=== PATIENT | female | born 1970 | race American Indian/Alaskan Native ===

== ENCOUNTER 2016-03-28 17:33 | Emergency (ER) | payer MEDICAID ==
--- NOTE | 2016-03-28 18:47 | Emergency Department Report ---
ED Dizziness HPI - General Chief Complaint: Hyperglycemia Stated Complaint: ELEVATED SUGAR LEVELS >500 Source: patient Mode of arrival: Ambulatory Limitations: No Limitations - Related Data Home Medications Medication Instructions Recorded Confirmed Last Taken Benztropine [Cogentin] 1 mg PO QHS 11/29/14 11/29/14 11/28/14 Citalopram [celeXA] 10 mg PO QDAY 11/29/14 11/29/14 11/29/14 Insulin Glargine [Lantus VIAL] 25 unit SUB-Q QHS 11/29/14 11/29/14 11/28/14 Lisinopril [Zestril TAB] 10 mg PO QDAY 11/29/14 11/29/14 11/29/14 Ziprasidone HCl [Geodon] 80 mg PO BID 11/29/14 11/29/14 11/29/14 buPROPion XL [Wellbutrin Xl] 300 mg PO QAM 11/29/14 11/29/14 11/29/14 clonazePAM [KlonoPIN] 2 mg PO QHS 11/29/14 11/29/14 11/28/14 metFORMIN [Glucophage] 500 mg PO BID 11/29/14 11/29/14 11/29/14 risperiDONE [RisperiDONE] 3 mg PO QDAY 11/29/14 11/29/14 11/29/14 Previous Rx's Medication Instructions Recorded Last Taken Type Ciprofloxacin HCl [Ciprofloxacin 500 mg PO Q12H #14 tab 11/29/14 Unknown Rx TAB] Allergies Allergy/AdvReac Type Severity Reaction Status Date / Time Sulfa (Sulfonamide Allergy Hives Verified 06/01/14 18:25 Antibiotics) ED Review of Systems ROS: Stated complaint: ELEVATED SUGAR LEVELS >500 Other details as noted in HPI ED Past Medical Hx - Past Medical History Hx Hypertension: Yes Hx Diabetes: Yes Hx Psychiatric Treatment: Yes (depression) Hx Asthma: Yes - Surgical History Additional Surgical History: cholestectomy, kidney stone surgery 2, colon biopsy, cyst removal from left upper extremity - Social History Smoking Status: Current Every Day Smoker Substance Use Type: None - Medications Home Medications: Home Medications Medication Instructions Recorded Confirmed Last Taken Type Benztropine [Cogentin] 1 mg PO QHS 11/29/14 11/29/14 11/28/14 History Ciprofloxacin HCl [Ciprofloxacin 500 mg PO Q12H #14 tab 11/29/14 Unknown Rx TAB] Citalopram [celeXA] 10 mg PO QDAY 11/29/14 11/29/14 11/29/14 History Insulin Glargine [Lantus VIAL] 25 unit SUB-Q QHS 11/29/14 11/29/14 11/28/14 History Lisinopril [Zestril TAB] 10 mg PO QDAY 11/29/14 11/29/14 11/29/14 History Ziprasidone HCl [Geodon] 80 mg PO BID 11/29/14 11/29/14 11/29/14 History buPROPion XL [Wellbutrin Xl] 300 mg PO QAM 11/29/14 11/29/14 11/29/14 History clonazePAM [KlonoPIN] 2 mg PO QHS 11/29/14 11/29/14 11/28/14 History metFORMIN [Glucophage] 500 mg PO BID 11/29/14 11/29/14 11/29/14 History risperiDONE [RisperiDONE] 3 mg PO QDAY 11/29/14 11/29/14 11/29/14 History ED Physical Exam - General Limitations: No Limitations ED Course Vital Signs 03/28/16 17:43 Temperature 98.4 F Pulse Rate 108 H Respiratory 18 Rate Blood Pressure 108/88 O2 Sat by Pulse 100 Oximetry Critical care attestation.: If time is entered above; I have spent that time in minutes in the direct care of this critically ill patient, excluding procedure time. ED Disposition Condition: Stable
--- NOTE | 2016-03-28 19:03 | Emergency Department Report ---
Chief Complaint: Hyperglycemia Stated Complaint: ELEVATED SUGAR LEVELS >500 Time Seen by Provider: 03/28/16 18:47 - HPI History of Present Illness: Patient here reports that she is having elevated blood sugar and generalized weakness 2 weeks. She reports that her blood sugar was greater than 500 at home.She reports that she took Lantus 45 units prior to coming to the emergency room. - ROS Review of Systems: All systems are negative unless stated in HPI above. - Exam Vital Signs: Vital Signs 03/28/16 17:43 Temperature 98.4 F Pulse Rate 108 H Respiratory 18 Rate Blood Pressure 108/88 O2 Sat by Pulse 100 Oximetry Physical Exam: General: 46year-old female well-nourished well-developed in no acute distress. CV: S1, S2. Tachycardic at 108 .Regular rhythm. Lungs:Cear to auscultate bilaterally, no rhonchi wheezes or rales. MSE screening note: Focused history and physical exam performed. Due to findings the following was ordered:see [facility] ED Medical Decision Making - Medical Decision Making Medical decision making: Patient seen by provider in triage area. Appropriate protocol activated and patient to main ED to be seen by physician. ED Disposition for MSE Condition: Stable
[2016-03-28 19:39] LABS: Basophils % (Auto) 0.8 % (0.0-1.8); Eosinophils % (Auto) 1.2 % (0.0-4.3); Hematocrit 51.8 % (30.3-42.9); Hemoglobin 16.9 gm/dl (10.1-14.3); Mean Corpuscular HGB Conc 33 % (30-34); Mean Corpuscular Hemoglobin 27 pg (28-32); Mean Corpuscular Volume 83 fl (79-97); Platelet Count 191 K/mm3 (140-440); Red Blood Count 6.23 M/mm3 (3.65-5.03); Red Cell Distribution Width 14.5 % (13.2-15.2); White Blood Count 7.7 K/mm3 (4.5-11.0)
[2016-03-28 20:03] LABS: Anion Gap 23 mmol/L; Blood Urea Nitrogen 7 mg/dL (7-17); Calcium 9.7 mg/dL (8.4-10.2); Carbon Dioxide 23 mmol/L (22-30); Chloride 96.3 mmol/L (98-107); Glucose 342 mg/dL (65-100); Potassium 4.1 mmol/L (3.6-5.0); Sodium 138 mmol/L (137-145)
[2016-03-29] MEDS ORDERED: PEPCID IV ONE (00:37)
[2016-03-29] MEDS ORDERED: ALUM-MAG HYDROX-SIMETH 200-200-20MG/5ML PO ONE (00:37)
[2016-03-29] MEDS ORDERED: NACL 0.9% 1000 ML 1,000 ML IV ONE (00:37)
[2016-03-29] MEDS ORDERED: ZOFRAN IV ONE (00:37)
--- NOTE | 2016-03-29 00:38 | Emergency Department Report ---
ED General Adult HPI - General Chief complaint: Hyperglycemia Stated complaint: ELEVATED SUGAR LEVELS >500 Time Seen by Provider: 03/28/16 18:47 Source: patient, RN notes reviewed, old records reviewed Mode of arrival: Ambulatory Limitations: No Limitations - History of Present Illness Initial comments: Doses of 46-year-old female, previously unknown to me. Her primary care doctor is Dr. Almendarez. Has a past medical history of depression, diabetes, hypertension. She presents to the ER complaining of hyperglycemia, abdominal cramping, frequent bowel movements. Hyperglycemia is present for 2 months. She reports that her fingersticks were in the 500s. She reports that at approximately 5:00 PM, she took 45 units of Lantus to try and decrease her fingerstick. She also reports feeling generalized malaise and weakness, positive dysuria, and reports that everything she eats comes out of her quite quickly. She reports that her stool is brown and red. No recent trips. No recent antibiotic use. No sick contacts. No chest pain. No shortness of breath. Her symptoms are constant. She cannot describe exacerbating or relieving factors. -: Gradual Location: abdomen Severity scale (0 -10): 0 Quality: aching Consistency: constant Improves with: none Worsens with: none Associated Symptoms: loss of appetite, malaise, weakness - Related Data Home Medications Medication Instructions Recorded Confirmed Last Taken Benztropine [Cogentin] 1 mg PO QHS 11/29/14 11/29/14 11/28/14 Citalopram [celeXA] 10 mg PO QDAY 11/29/14 11/29/14 11/29/14 Insulin Glargine [Lantus VIAL] 25 unit SUB-Q QHS 11/29/14 11/29/14 11/28/14 Lisinopril [Zestril TAB] 10 mg PO QDAY 11/29/14 11/29/14 11/29/14 Ziprasidone HCl [Geodon] 80 mg PO BID 11/29/14 11/29/14 11/29/14 buPROPion XL [Wellbutrin Xl] 300 mg PO QAM 11/29/14 11/29/14 11/29/14 clonazePAM [KlonoPIN] 2 mg PO QHS 11/29/14 11/29/14 11/28/14 metFORMIN [Glucophage] 500 mg PO BID 11/29/14 11/29/14 11/29/14 risperiDONE [RisperiDONE] 3 mg PO QDAY 11/29/14 11/29/14 11/29/14 Previous Rx's Medication Instructions Recorded Last Taken Type Ciprofloxacin HCl [Ciprofloxacin 500 mg PO Q12H #14 tab 11/29/14 Unknown Rx TAB] Dicyclomine [Bentyl] 10 mg PO QID PRN #20 capsule 03/29/16 Unknown Rx Nitrofurantoin Jenkins/M-Cryst 100 mg PO Q12HR #14 capsule 03/29/16 Unknown Rx [Macrobid CAP] Ondansetron [Zofran Odt] 4 mg PO QID PRN #20 tab.rapdis 03/29/16 Unknown Rx Allergies Allergy/AdvReac Type Severity Reaction Status Date / Time Sulfa (Sulfonamide Allergy Hives Verified 06/01/14 18:25 Antibiotics) ED Review of Systems ROS: Stated complaint: ELEVATED SUGAR LEVELS >500 Other details as noted in HPI Constitutional: malaise Eyes: denies: vision change ENT: denies: epistaxis Respiratory: see HPI Cardiovascular: as per HPI Gastrointestinal: abdominal pain, diarrhea Genitourinary: dysuria Musculoskeletal: back pain Skin: as per HPI Neurological: weakness Psychiatric: anxiety ED Past Medical Hx - Past Medical History Hx Hypertension: Yes Hx Diabetes: Yes Hx Psychiatric Treatment: Yes (depression) Hx Asthma: Yes - Surgical History Additional Surgical History: cholestectomy, kidney stone surgery 2, colon biopsy, cyst removal from left upper extremity - Social History Smoking Status: Current Every Day Smoker Substance Use Type: None - Medications Home Medications: Home Medications Medication Instructions Recorded Confirmed Last Taken Type Benztropine [Cogentin] 1 mg PO QHS 11/29/14 11/29/14 11/28/14 History Ciprofloxacin HCl [Ciprofloxacin 500 mg PO Q12H #14 tab 11/29/14 Unknown Rx TAB] Citalopram [celeXA] 10 mg PO QDAY 11/29/14 11/29/14 11/29/14 History Insulin Glargine [Lantus VIAL] 25 unit SUB-Q QHS 11/29/14 11/29/14 11/28/14 History Lisinopril [Zestril TAB] 10 mg PO QDAY 11/29/14 11/29/14 11/29/14 History Ziprasidone HCl [Geodon] 80 mg PO BID 11/29/14 11/29/14 11/29/14 History buPROPion XL [Wellbutrin Xl] 300 mg PO QAM 11/29/14 11/29/14 11/29/14 History clonazePAM [KlonoPIN] 2 mg PO QHS 11/29/14 11/29/14 11/28/14 History metFORMIN [Glucophage] 500 mg PO BID 11/29/14 11/29/14 11/29/14 History risperiDONE [RisperiDONE] 3 mg PO QDAY 11/29/14 11/29/14 11/29/14 History Dicyclomine [Bentyl] 10 mg PO QID PRN #20 capsule 03/29/16 Unknown Rx Nitrofurantoin Jenkins/M-Cryst 100 mg PO Q12HR #14 capsule 03/29/16 Unknown Rx [Macrobid CAP] Ondansetron [Zofran Odt] 4 mg PO QID PRN #20 tab.rapdis 03/29/16 Unknown Rx ED Physical Exam - General Limitations: No Limitations General appearance: alert, in no apparent distress - Head Head exam: Present: atraumatic, normocephalic - Eye Eye exam: Present: normal appearance, EOMI. Absent: nystagmus - ENT ENT exam: Present: normal exam, normal orophraynx, mucous membranes moist - Neck Neck exam: Present: normal inspection, full ROM. Absent: tenderness, meningismus - Respiratory Respiratory exam: Present: normal lung sounds bilaterally. Absent: respiratory distress, wheezes, rales, rhonchi, stridor, chest wall tenderness - Cardiovascular Cardiovascular Exam: Present: regular rate, normal rhythm, normal heart sounds. Absent: bradycardia, tachycardia, irregular rhythm, systolic murmur, diastolic murmur, rubs, gallop - GI/Abdominal GI/Abdominal exam: Present: soft, tenderness, normal bowel sounds. Absent: distended, guarding, rebound, rigid, pulsatile mass - Rectal Rectal exam: Present: normal inspection, normal rectal tone, heme (-) stool, other (Brown stool, no gross blood. During rectal examination, I am escorted by ER [employer] missile [employer] technician Kasandra Arenas) - Extremities Exam Extremities exam: Present: normal inspection, full ROM, normal capillary refill. Absent: tenderness, pedal edema, joint swelling, calf tenderness - Back Exam Back exam: Present: normal inspection, full ROM. Absent: tenderness, CVA tenderness (R), CVA tenderness (L), muscle spasm, paraspinal tenderness, vertebral tenderness - Neurological Exam Neurological exam: Present: alert, oriented X3, other (Extraocular movements intact. Tongue midline. No facial droop. Facial sensation intact to light touch in the V1, V2, V3 distribution bilaterally. 5 and 5 strength in 4 extremities.. Sensation is intact to light touch in 4 extremities.). Absent: motor sensory deficit - Psychiatric Psychiatric exam: Present: anxious - Skin Skin exam: Present: warm, dry, intact, normal color. Absent: rash ED Course Vital Signs 03/28/16 03/28/16 03/29/16 17:43 23:43 00:35 Temperature 98.4 F 98.5 F Pulse Rate 108 H 94 H Respiratory 18 22 18 Rate Blood Pressure 108/88 Blood Pressure 134/100 [Left] O2 Sat by Pulse 100 100 100 Oximetry 03/29/16 03:03 Temperature Pulse Rate 90 Respiratory 16 Rate Blood Pressure Blood Pressure 135/97 [Left] O2 Sat by Pulse 100 Oximetry - Reevaluation(s) Reevaluation #1: 03/29/16 00:46 Differential diagnosis: Colitis, diverticulitis, urinary tract infection, hyperglycemia, intra-abdominal abscess, enteritis Assessment and plan: 46-year-old female with diffuse abdominal pain, hyperglycemia without diabetic ketoacidosis. She is somewhat tender. May have an enteritis or colitis. She will be treated symptomatically. She will be given IV fluids. Guaiac negative. Hemoglobin and hematocrit stable. Urinalysis pending. CAT scan of the abdomen and pelvis is pending. Reassess once urinalysis and CAT scan have resulted. 03/29/16 01:12 Reevaluation #2: 03/29/16 04:00 CAT scan of the abdomen and pelvis with no acute disease that would require emergent intervention. Of note, patient has not had any episodes of diarrhea. Hyperglycemia is improved. Abdomen soft and repeat exam. Noted to be walking. No active vomiting. Urinalysis contaminated, but given her endorsement of irritative urinary symptoms, she will be given Macrobid empirically. She is counseled to follow-up in outpatient primary care doctor. Return precautions are extensively reviewed. ED Medical Decision Making - Lab Data Result diagrams: 03/28/16 18:57 03/28/16 18:57 Vital Signs 03/28/16 03/28/16 03/29/16 17:43 23:43 00:35 Temperature 98.4 F 98.5 F Pulse Rate 108 H 94 H Respiratory 18 22 18 Rate Blood Pressure 108/88 Blood Pressure 134/100 [Left] O2 Sat by Pulse 100 100 100 Oximetry 03/29/16 03:03 Temperature Pulse Rate 90 Respiratory 16 Rate Blood Pressure Blood Pressure 135/97 [Left] O2 Sat by Pulse 100 Oximetry Lab Results 03/28/16 03/28/16 03/28/16 Range/Units 17:50 18:57 18:57 WBC 7.7 (4.5-11.0) K/mm3 RBC 6.23 H (3.65-5.03) M/mm3 Hgb 16.9 H (10.1-14.3) gm/dl Hct 51.8 H (30.3-42.9) % MCV 83 (79-97) fl MCH 27 L (28-32) pg MCHC 33 (30-34) % RDW 14.5 (13.2-15.2) % Plt Count 191 (140-440) K/mm3 Lymph % (Auto) 37.6 H (13.4-35.0) % Jenkins % (Auto) 5.4 (0.0-7.3) % Eos % (Auto) 1.2 (0.0-4.3) % Baso % (Auto) 0.8 (0.0-1.8) % Lymph # 2.9 (1.2-5.4) K/mm3 Jenkins # 0.4 (0.0-0.8) K/mm3 Eos # 0.1 (0.0-0.4) K/mm3 Baso # 0.1 (0.0-0.1) K/mm3 Seg Neutrophils % 55.0 (40.0-70.0) % Seg Neutrophils # 4.3 (1.8-7.7) K/mm3 VBG pH (7.320-7.420) Sodium 138 (137-145) mmol/L Potassium 4.1 (3.6-5.0) mmol/L Chloride 96.3 L (98-107) mmol/L Carbon Dioxide 23 (22-30) mmol/L Anion Gap 23 mmol/L BUN 7 (7-17) mg/dL Creatinine 0.7 (0.7-1.2) mg/dL Estimated GFR > 60 ml/min BUN/Creatinine Ratio 10.00 % Glucose 342 H (65-100) mg/dL POC Glucose 323 H (70-105) Calcium 9.7 (8.4-10.2) mg/dL HCG, Qual (Negative) Ketones 8.0 H (0.2-2.8) mg/dL 03/28/16 03/28/16 03/28/16 Range/Units 18:57 18:57 23:47 WBC (4.5-11.0) K/mm3 RBC (3.65-5.03) M/mm3 Hgb (10.1-14.3) gm/dl Hct (30.3-42.9) % MCV (79-97) fl MCH (28-32) pg MCHC (30-34) % RDW (13.2-15.2) % Plt Count (140-440) K/mm3 Lymph % (Auto) (13.4-35.0) % Jenkins % (Auto) (0.0-7.3) % Eos % (Auto) (0.0-4.3) % Baso % (Auto) (0.0-1.8) % Lymph # (1.2-5.4) K/mm3 Jenkins # (0.0-0.8) K/mm3 Eos # (0.0-0.4) K/mm3 Baso # (0.0-0.1) K/mm3 Seg Neutrophils % (40.0-70.0) % Seg Neutrophils # (1.8-7.7) K/mm3 VBG pH 7.385 (7.320-7.420) Sodium (137-145) mmol/L Potassium (3.6-5.0) mmol/L Chloride (98-107) mmol/L Carbon Dioxide (22-30) mmol/L Anion Gap mmol/L BUN (7-17) mg/dL Creatinine (0.7-1.2) mg/dL Estimated GFR ml/min BUN/Creatinine Ratio % Glucose (65-100) mg/dL POC Glucose 370 H (70-105) Calcium (8.4-10.2) mg/dL HCG, Qual Negative (Negative) Ketones (0.2-2.8) mg/dL 03/29/16 Range/Units 02:38 WBC (4.5-11.0) K/mm3 RBC (3.65-5.03) M/mm3 Hgb (10.1-14.3) gm/dl Hct (30.3-42.9) % MCV (79-97) fl MCH (28-32) pg MCHC (30-34) % RDW (13.2-15.2) % Plt Count (140-440) K/mm3 Lymph % (Auto) (13.4-35.0) % Jenkins % (Auto) (0.0-7.3) % Eos % (Auto) (0.0-4.3) % Baso % (Auto) (0.0-1.8) % Lymph # (1.2-5.4) K/mm3 Jenkins # (0.0-0.8) K/mm3 Eos # (0.0-0.4) K/mm3 Baso # (0.0-0.1) K/mm3 Seg Neutrophils % (40.0-70.0) % Seg Neutrophils # (1.8-7.7) K/mm3 VBG pH (7.320-7.420) Sodium (137-145) mmol/L Potassium (3.6-5.0) mmol/L Chloride (98-107) mmol/L Carbon Dioxide (22-30) mmol/L Anion Gap mmol/L BUN (7-17) mg/dL Creatinine (0.7-1.2) mg/dL Estimated GFR ml/min BUN/Creatinine Ratio % Glucose (65-100) mg/dL POC Glucose 339 H (70-105) Calcium (8.4-10.2) mg/dL HCG, Qual (Negative) Ketones (0.2-2.8) mg/dL - Radiology Data Radiology results: report reviewed, image reviewed CAT scan of the abdomen and pelvis with contrast: Lung bases show density which may represent atelectatic change or scarring. There is a small right-sided pleural effusion. Liver demonstrates decreased attenuation, suggestive of fatty liver. The appendix is within normal limits. Uterus is surgically absent. No acute findings noted. Critical care attestation.: If time is entered above; I have spent that time in minutes in the direct care of this critically ill patient, excluding procedure time. ED Disposition Clinical Impression: Hyperglycemia, Abdominal pain Disposition: DISCHARGED TO HOME OR SELFCARE Is pt being admited?: No Does the pt Need Aspirin: No Condition: Stable Instructions: Abdominal Pain (ED), Diabetic Hyperglycemia (ED) Additional Instructions: Continue current outpatient medications. Hold your metformin for the next 2 days. Do not take metformin for the next 2 days. Make certain to adhere to a diabetic diet. Take the antibiotics, pain medication, nausea medication as directed. Follow up with the primary care doctor within the next week. Dr. Stanley is a local primary care doctor. Return to the ER right away with new pain, worsened pain, migration of pain, fevers or chills, nausea or vomiting, inability to tolerate feeds. Prescriptions: Dicyclomine [Bentyl] 10 mg PO QID PRN #20 capsule PRN Reason: Pain Nitrofurantoin Jenkins/M-Cryst [Macrobid CAP] 100 mg PO Q12HR #14 capsule Ondansetron [Zofran Odt] 4 mg PO QID PRN #20 tab.rapdis PRN Reason: Nausea Referrals: PRIMARY CARE, [Primary Care Provider] - 3-5 Days KAREN STANLEY MD [Staff Physician] - 3-5 Days
[2016-03-29 03:04] VITALS: BP 135/97
--- NOTE | 2016-03-29 03:06 | Cat Scan Report ---
FINAL REPORT EXAM: CT ABDOMEN PELVIS W CON HISTORY: abd pain TECHNIQUE: Spiral CT scanning of the abdomen and pelvis after the uneventful administration of IV contrast. Multiplanar reformations. 100 mL Omnipaque IV. PRIORS: None. FINDINGS: Abdomen: Visualized lung bases show mild pleuro-parenchymal density in left lung base may represent atelectatic change or scarring. Small, right pleural effusion. Liver shows diffusely decreased attenuation without focal abnormality. Asymmetrically small or atrophic right kidney with numerous cortical defects and scarring. Spleen, pancreas, left kidney and adrenal glands are without significant abnormality. Appendix within normal limits. Pelvis: Visualized bowel grossly unremarkable. Appendix within normal limits. No significant free peritoneal fluid or apparent adenopathy. Abdominal aorta is non-aneurysmal. Uterus surgically absent. Mild S-shaped scoliotic change in thoracolumbar spine. Small, fat-containing umbilical hernia. IMPRESSION: 1. Findings compatible with fatty infiltration in the liver. 2. Small, right pleural effusion. 3. No other acute findings.
--- NOTE | 2016-03-29 03:10 | Admit Criteria Form ---
Admission Criteria Documentation: DIABETES Clinical Indications for Admission to Inpatient Care (Place 'X' for any and all applicable criteria): Admission is indicated by presence of ALL (if I & II) or ANY ONE (if III or IV) of the following (1)(2)(3)(4): [X ]I. Diabetes is uncontrolled as indicated by ANY ONE of the following: [X ]a) Diabetic ketoacidosis as indicated by ALL of the following (8): [ X]i) Hyperglycemia (eg, plasma glucose greater than 200 mg /dL (11.1 mmol/L)) [ X]ii) Acidosis (eg, arterial pH less than 7.30, serum bicarbonate level less than 15 mEq/L (mmol/L)) [X ]iii) Moderate ketonuria or ketonemia [ ]b) Hyperglycemic hyperosmolar state as indicated by ALL of the following(9)(10): [ ]i) Neurologic dysfunction (eg, stupor, coma, hemiparesis , seizure)(13) [ ]ii) Plasma glucose greater than 600 mg/dL (33.3 mmol/L) [ ]iii) Serum osmolality greater than 320 mOsm/kg (mmol/kg) [ ]c) Severe signs or symptoms secondary to hyperglycemia indicated by ANY ONE of the following: [ ]i) Altered mental status(10) [ ]ii) Significant hypovolemia or dehydration [ ]iii) Intractable nausea or vomiting [ ]iv) Unexplained fever or severe infection [ ]v) Severe electrolyte abnormality (eg, hypokalemia, hyperkalemia, hypernatremia) [ X]II. Management at other levels of care (Also use Diabetes: Observation Care as appropriate) is not feasible because of ANY ONE of the following: [ X]a) Condition was not adequately corrected with treatment at other levels of care. [ ]b) Treatment at other levels of care is not appropriate because of condition severity (eg, hyperosmolar coma). [ ]III. Contraindications and/or Inappropriate clinical situations for Observational Care in patients with Diabetes, when ANY ONE of the following is required: [ ]a) Patient require specific diagnostic workup or therapeutic intervention 22 [ ]b) Patient with abnormal vital signs or altered mental status 23 [ ]IV. General contraindications and/or Inappropriate clinical situations for Observational Care in patients with Diabetes, when ANY ONE of the following is required: [ ]a) Prediction of prolongation of LOS based on ANY ONE of the following may be considered as a contraindication for observational care 2, 3, 4, 5, 6, 7, 8, 9, 10, 11 [ ]i) Age > 65 yrs. [ ]ii) Patient arriving by ambulance [ ]iii) Patient with high acuity [ ]iv) Patient requiring vital sign monitoring [ ]v) Patient on IV medication [ ]b) Systolic blood pressures 180mmHg 3,12 [ ]c) Patient with altered mental status including delirium and other alteration of consciousness, (3) [ ]d) Patient whose discharge disposition will be to a longterm home or rehabilitation home should not be managed in Emergency Department Observation Unit. CMS rule requires 3 days hospital stay before such placement.3,13 [ ]e) Patient with failure to thrive due to broad array of etiologies 3,16,17 [ ]f) Inability to ambulate 3,14 Extended stay beyond goal length of stay may be needed for(3)(20): [ ]a) Treatment of precipitating causes [ ]b) Development of hypoglycemia [ ]c) Complications of treatment [ ]d) Complications of decompensated diabetes (eg, acute gastric dilatation, persistent metabolic or neurologic derangement) [ ]e) Active Comorbidities [ ]f) Older patients( 65 years or older) The original [employer] content created by [employer] has been revised. The portions of the content which have been revised are identified through the use of italic text or in bold,and [facility] has neither reviewed nor approved the modified material. All other unmodified content is copyright [employer]. Please see references footnoted in the original [employer] edition 2016
[2016-03-29 03:14] LABS: Bilirubin,Urine NEG (Negative); Blood,Urine MOD (Negative); Ketones,Urine TR mg/dL (Negative); Leukocyte Esterase,Urine SM (Negative); Mucus,Urine FEW /HPF; Nitrite,Urine NEG (Negative); Urobilinogen,Urine < 2.0 mg/dL (<2.0)
== END 2016-03-29 04:15 | disposition home or self-care (01) ==
LOC: ED 17:33
DX: E11.65 Type 2 diabetes mellitus with hyperglycemia (principal); R10.9 Unspecified abdominal pain; I10 Essential (primary) hypertension; J45.909 Unspecified asthma, uncomplicated; F17.200 Nicotine dependence, unspecified, uncomplicated; Z90.49 Acquired absence of other specified parts of digestive tract
CPT/HCPCS: 36415; 74177; 80048; 81001; 82010; 82271; 82805; 82962; 84703; 85025; 87086; 96361; 96374; 96375; 99285; J2405; J7030; Q9967

== ENCOUNTER 2017-05-12 14:47 | Emergency (ER) | payer MEDICAID ==
[2017-05-12 15:09] VITALS: BP 144/94
[2017-05-12] MEDS ORDERED: NORCO 5/325 PO ONE (16:14)
[2017-05-12] MEDS ORDERED: BSS 1 DROPS, TETRACAINE 0.5% 1 DROPS, FUL-GLO 0.6 MG OS ONE (16:18)
--- NOTE | 2017-05-12 16:24 | Emergency Department Report ---
Blank Doc - Documentation Documentation: 47-year-old female presents with left forehead and eye pain for the past 2 days. Patient was sitting on the toilet. Her psychotropic medication made her drowsy and she fell asleep. She fell foward striking her left forehead bathtub injuring her eye as well. She complains of left sided headache, blurred vision , light sensitivity. Patient also complains of continued cough productive of yellow sputum and chills for the past 2 months making it difficult for her to inhale her cigarette. No improvement with Mucinex provided by PMD. She was not treated with antibiotics Visual acuity testing, CT head and orbits, cunningham lamp and fluorescein stain ordered Chest x-ray ordered for persistent cough. Treatment with Z-Sandor may be warranted. Briefly counseled on importance to stop smoking. Mid-level to evaluate
[2017-05-12] MEDS ORDERED: TETRACAINE 0.5% ONE (16:26)
[2017-05-12] MEDS ORDERED: FUL-GLO OP ONE (16:27)
--- NOTE | 2017-05-12 16:33 | Emergency Department Report ---
ED Head Trauma HPI - General Chief complaint: Head Injury Stated complaint: DOUBLE VISON LEFT EYE AFTER FALL Time Seen by Provider: 05/12/17 16:07 Source: patient, EMS Mode of arrival: Ambulatory Limitations: No Limitations - History of Present Illness Initial comments: 47-year-old female resents with complaint of left eye left orbit pain status post fall 2 days ago. Patient is currently awake and alert. Denies any purulent drainage from eye. Some visible periorbital swelling left side head. Patient is fully lucid ambulatory awake and conversant. Does not know last tetanus vaccine. States she wears contact lenses which she still has a now and has not removed since fall MD Complaint: head injury, head pain, fall Location: occipital Loss of Consciousness: unwitnessed Previous Trauma to this Area: No Place: home Severity: moderate Severity scale (0 -10): 5 Consistency: constant Provoking factors: none known - Related Data Home Medications Medication Instructions Recorded Confirmed Last Taken Benztropine [Cogentin] 1 mg PO QHS 11/29/14 11/29/14 11/28/14 Citalopram [celeXA] 10 mg PO QDAY 11/29/14 11/29/14 11/29/14 Insulin Glargine [Lantus VIAL] 25 unit SUB-Q QHS 11/29/14 11/29/14 11/28/14 Lisinopril [Zestril TAB] 10 mg PO QDAY 11/29/14 11/29/14 11/29/14 Ziprasidone HCl [Geodon] 80 mg PO BID 11/29/14 11/29/14 11/29/14 buPROPion XL [Wellbutrin Xl] 300 mg PO QAM 11/29/14 11/29/14 11/29/14 clonazePAM [KlonoPIN] 2 mg PO QHS 11/29/14 11/29/14 11/28/14 metFORMIN [Glucophage] 500 mg PO BID 11/29/14 11/29/14 11/29/14 risperiDONE [RisperiDONE] 3 mg PO QDAY 11/29/14 11/29/14 11/29/14 Previous Rx's Medication Instructions Recorded Last Taken Type Ciprofloxacin HCl [Ciprofloxacin 500 mg PO Q12H #14 tab 11/29/14 Unknown Rx TAB] Dicyclomine [Bentyl] 10 mg PO QID PRN #20 capsule 03/29/16 Unknown Rx Nitrofurantoin [place]/M-Cryst 100 mg PO Q12HR #14 capsule 03/29/16 Unknown Rx [Macrobid CAP] Ondansetron [Zofran Odt] 4 mg PO QID PRN #20 tab.rapdis 03/29/16 Unknown Rx ALBUTEROL Inhaler [ProAir HFA 1 puff IH Q4H PRN #1 inha 05/12/17 Unknown Rx Inhaler] Acetaminophen [Acetaminophen TAB] 500 mg PO Q6HR PRN #30 tablet 05/12/17 Unknown Rx Azithromycin [Zithromax Z-NIDIA] 250 mg PO QDAY #1 pack 05/12/17 Unknown Rx Ciprofloxacin 0.3% (Nf) 2 drop OP Q4H #1 drops 05/12/17 Unknown Rx [Ciprofloxacin OPTH] Allergies/Adverse reactions: Allergies Allergy/AdvReac Type Severity Reaction Status Date / Time shellfish derived Allergy Swelling Verified 05/12/17 15:05 Sulfa (Sulfonamide Allergy Hives Verified 06/01/14 18:25 Antibiotics) ED Review of Systems ROS: Stated complaint: DOUBLE VISON LEFT EYE AFTER FALL Other details as noted in HPI Constitutional: denies: chills, fever Eyes: eye pain (left eye pain). denies: eye discharge, vision change ENT: denies: ear pain, throat pain Respiratory: denies: cough, shortness of breath, wheezing Cardiovascular: denies: chest pain, palpitations Endocrine: no symptoms reported Gastrointestinal: denies: abdominal pain, nausea, diarrhea Genitourinary: denies: urgency, dysuria, discharge Musculoskeletal: denies: back pain, joint swelling, arthralgia Skin: denies: rash, lesions Neurological: denies: headache, weakness, paresthesias Psychiatric: denies: anxiety, depression Hematological/Lymphatic: denies: easy bleeding, easy bruising ED Past Medical Hx - Past Medical History Previous Medical History?: Yes Hx Hypertension: Yes Hx Diabetes: Yes Hx Psychiatric Treatment: Yes (depression) Hx Asthma: Yes - Surgical History Past Surgical History?: Yes Hx Cholecystectomy: Yes Additional Surgical History: cholestectomy, kidney stone surgery 2, colon biopsy, cyst removal from left upper extremity. hystertectomy - Social History Smoking Status: Current Every Day Smoker Substance Use Type: None - Medications Home Medications: Home Medications Medication Instructions Recorded Confirmed Last Taken Type Benztropine [Cogentin] 1 mg PO QHS 11/29/14 11/29/14 11/28/14 History Ciprofloxacin HCl [Ciprofloxacin 500 mg PO Q12H #14 tab 11/29/14 Unknown Rx TAB] Citalopram [celeXA] 10 mg PO QDAY 11/29/14 11/29/14 11/29/14 History Insulin Glargine [Lantus VIAL] 25 unit SUB-Q QHS 11/29/14 11/29/14 11/28/14 History Lisinopril [Zestril TAB] 10 mg PO QDAY 11/29/14 11/29/14 11/29/14 History Ziprasidone HCl [Geodon] 80 mg PO BID 11/29/14 11/29/14 11/29/14 History buPROPion XL [Wellbutrin Xl] 300 mg PO QAM 11/29/14 11/29/14 11/29/14 History clonazePAM [KlonoPIN] 2 mg PO QHS 11/29/14 11/29/14 11/28/14 History metFORMIN [Glucophage] 500 mg PO BID 11/29/14 11/29/14 11/29/14 History risperiDONE [RisperiDONE] 3 mg PO QDAY 11/29/14 11/29/14 11/29/14 History Dicyclomine [Bentyl] 10 mg PO QID PRN #20 capsule 03/29/16 Unknown Rx Nitrofurantoin [place]/M-Cryst 100 mg PO Q12HR #14 capsule 03/29/16 Unknown Rx [Macrobid CAP] Ondansetron [Zofran Odt] 4 mg PO QID PRN #20 tab.rapdis 03/29/16 Unknown Rx ALBUTEROL Inhaler [ProAir HFA 1 puff IH Q4H PRN #1 inha 05/12/17 Unknown Rx Inhaler] Acetaminophen [Acetaminophen TAB] 500 mg PO Q6HR PRN #30 tablet 05/12/17 Unknown Rx Azithromycin [Zithromax Z-NIDIA] 250 mg PO QDAY #1 pack 05/12/17 Unknown Rx Ciprofloxacin 0.3% (Nf) 2 drop OP Q4H #1 drops 05/12/17 Unknown Rx [Ciprofloxacin OPTH] ED Physical Exam - General Limitations: No Limitations General appearance: alert, in no apparent distress - Eye Eye exam: Present: normal appearance, PERRL, EOMI - ENT ENT exam: Present: mucous membranes moist - Neck Neck exam: Present: normal inspection, full ROM - Respiratory Respiratory exam: Present: normal lung sounds bilaterally. Absent: respiratory distress - Cardiovascular Cardiovascular Exam: Present: regular rate, normal rhythm. Absent: systolic murmur, diastolic murmur, rubs, gallop - GI/Abdominal GI/Abdominal exam: Present: soft, normal bowel sounds - Extremities Exam Extremities exam: Present: normal inspection - Back Exam Back exam: Present: normal inspection - Neurological Exam Neurological exam: Present: alert, oriented X3 - Psychiatric Psychiatric exam: Present: normal affect, normal mood - Skin Skin exam: Present: warm, dry, intact, normal color. Absent: rash ED Course Vital Signs 05/12/17 05/12/17 15:05 16:33 Temperature 98.4 F Pulse Rate 100 H Respiratory 16 18 Rate Blood Pressure 144/94 O2 Sat by Pulse 97 Oximetry - Lab Data Lab Results 05/12/17 Range/Units 15:15 POC Glucose 287 H (70-105) - Medical Decision Making A/P: Left orbital contusion, corneal abrasion, concussive symptoms, acute bronchitis 1-CT is unremarkable, no acute fractures 2-ocular movements are intact no signs of globe rupture on clinical exam possible small corneal abrasion on fluorescein stain. Intraocular pressure is 15 left eye. Visual acuity 20/40 left eye 20/30 right eye 20/30 overall 3-Tylenol when necessary, tetanus vaccine update, ciprofloxacin eyedrops. Patient removed her contact lens in her left eye. I advised her to use glasses and to not replace the contact lenses for now as this can lead to pseudomonal eye infection or conjunctivitis. Patient stated she understood my concern and would not do so. We'll give her ciprofloxacin eyedrops. Follow-up with ophthalmology. 4-albuterol inhaler, azithromycin course 5- Cranial nerves 2, 3, 4, 5, 6, 7, 8,10, 11, 12 intact on clinical exam, patient is fully lucid awake alert and oriented 3 conversant. Denies any upper or lower extremity paresthesias and has 5/5 strength in bilateral upper and lower extremities on clinical exam. - NEXUS Criteria Focal neurological deficit present: No Midline spinal tenderness present: No Altered level of consciousness: No Intoxication present: No Distracting injury present: No NEXUS results: C-Spine can be cleared clinically by these results. Imaging is not required. Critical care attestation.: If time is entered above; I have spent that time in minutes in the direct care of this critically ill patient, excluding procedure time. ED Disposition Clinical Impression: Post concussion syndrome Eye contusion Qualifiers: Encounter type: initial encounter Laterality: left Qualified Code(s): S05.12XA - Contusion of eyeball and orbital tissues, left eye, initial encounter Headache Qualifiers: Headache type: unspecified Headache chronicity pattern: acute headache Intractability: not intractable Qualified Code(s): R51 - Headache Left corneal abrasion Qualifiers: Encounter type: initial encounter Qualified Code(s): S05.02XA - Injury of conjunctiva and corneal abrasion without foreign body, left eye, initial encounter Disposition: TO HOME OR SELFCARE Is pt being admited?: No Does the pt Need Aspirin: No Condition: Stable Instructions: Corneal Abrasion (ED), Post Concussion Syndrome (ED), Concussion (ED), Minor Head Injury (ED) Prescriptions: Acetaminophen [Acetaminophen TAB] 500 mg PO Q6HR PRN #30 tablet PRN Reason: Pain ALBUTEROL Inhaler [ProAir HFA Inhaler] 1 puff IH Q4H PRN #1 inha PRN Reason: Wheezing Azithromycin [Zithromax Z-NIDIA] 250 mg PO QDAY #1 pack Ciprofloxacin 0.3% (Nf) [Ciprofloxacin OPTH] 2 drop OP Q4H #1 drops Referrals: SANTO TAN MD [Staff Physician] - 3-[address] [facility] [Provider Group] - 3-5 Days Forms: Work/School Release Form(ED) Time of Disposition: 17:59
[2017-05-12] MEDS ORDERED: BOOSTRIX IM ONE (17:19)
--- NOTE | 2017-05-12 17:21 | XRay Report ---
FINAL REPORT EXAM: XR CHEST ROUTINE 2V HISTORY: persistant cough TECHNIQUE: Two view chest PA and lateral PRIORS: None. FINDINGS: Cardiac and mediastinal contours are unremarkable. No focal pulmonary infiltrate is identified. No pleural fluid collection seen. Pulmonary vasculature is unremarkable. Noted is scoliotic deformity of the mid to lower thoracic spine convex right. IMPRESSION: Scoliosis No acute abnormality identified in the chest
--- NOTE | 2017-05-12 17:34 | Cat Scan Report ---
FINAL REPORT PROCEDURE: CT head without contrast. TECHNIQUE: Computerized tomography of the head was performed without contrast material. HISTORY: Left forehead injury. COMPARISON: No prior studies are available for comparison. FINDINGS: The ventricles are normal in size. The conti matter and white matter appear normal. There are no mass lesions. There is no intracranial hemorrhage. There are no signs of acute infarction. The calvarium appears intact. The mastoid air cells and visualized paranasal sinuses are well aerated. IMPRESSION: Normal study.
--- NOTE | 2017-05-12 17:38 | Cat Scan Report ---
FINAL REPORT PROCEDURE: CT orbits without contrast. TECHNIQUE: Computerized axial tomography of the orbits was performed without contrast material. HISTORY: Left forehead injury,left eye redness, contact still in. COMPARISON: No prior studies are available for comparison. FINDINGS: The bones appear intact without fracture. The orbital contents appear normal. There are no blowout type injuries. The paranasal sinuses and mastoid air cells are clear. There is a small subcutaneous contusion in the left frontal scalp. IMPRESSION: No evidence of fracture.
== END 2017-05-12 18:13 | disposition home or self-care (01) ==
LOC: ED 14:47
DX: S05.12XA Contusion of eyeball and orbital tissues, left eye, initial encounter (principal); F07.81 Postconcussional syndrome; I10 Essential (primary) hypertension; E11.9 Type 2 diabetes mellitus without complications; F32.9 Major depressive disorder, single episode, unspecified; J45.909 Unspecified asthma, uncomplicated; Z90.49 Acquired absence of other specified parts of digestive tract; Z90.710 Acquired absence of both cervix and uterus; F17.200 Nicotine dependence, unspecified, uncomplicated; W17.89XA Other fall from one level to another, initial encounter; Y93.89 Activity, other specified; Y92.89 Other specified places as the place of occurrence of the external cause; Y99.8 Other external cause status
CPT/HCPCS: 70450; 70480; 71046; 82962; 90471; 90715

== ENCOUNTER 2018-07-29 13:26 | Inpatient (IN) | payer MEDICAID ==
--- NOTE | 2018-07-29 13:52 | Emergency Department Report ---
Chief Complaint: Skin/Abscess/Foreign Body Stated Complaint: BUMP ON BUTTOCKS Time Seen by Provider: 07/29/18 13:47 - HPI History of Present Illness: pt presents with an abscess in the right groin started two days ago has increased in size one drained on its own the other one has not been draining no fever no N/v PMHx HTN, DM, asthma takes humalog and lantus has not taken her insulin in 2-3 months +smoker, 1 PPD non drinker no drug use MSE screening note: Focused history and physical exam performed. Due to findings the following was ordered: labs, finger stick
[2018-07-29 14:32] LABS: Basophils # (Auto) 0.2 K/mm3 (0.0-0.1); Basophils % (Auto) 2.3 % (0.0-1.8); Eosinophils # (Auto) 0.1 K/mm3 (0.0-0.4); Eosinophils % (Auto) 1.5 % (0.0-4.3); Hematocrit 46.7 % (30.3-42.9); Hemoglobin 15.3 gm/dl (10.1-14.3); Lymphocytes # (Auto) 1.9 K/mm3 (1.2-5.4); Lymphocytes % (Auto) 19.7 % (13.4-35.0); Mean Corpuscular HGB Conc 33 % (30-34); Mean Corpuscular Volume 85 fl (79-97); Monocytes # (Auto) 0.6 K/mm3 (0.0-0.8); Monocytes % (Auto) 6.5 % (0.0-7.3); Platelet Count 232 K/mm3 (140-440); Red Blood Count 5.48 M/mm3 (3.65-5.03); Red Cell Distribution Width 15.8 % (13.2-15.2)
[2018-07-29 15:05] LABS: Alanine Aminotransferase 11 units/L (7-56); Albumin 3.4 g/dL (3.9-5); BUN/Creatinine Ratio 9; Blood Urea Nitrogen 8 mg/dL (7-17); Calcium 9.4 mg/dL (8.4-10.2); Hemolysis Index 45
[2018-07-29 15:54] LABS: Bacteria,Urine 1+ /HPF (Negative); Bilirubin,Urine NEG (Negative); Blood,Urine LG (Negative); Color,Urine Straw (Yellow); Urobilinogen,Urine < 2.0 mg/dL (<2.0)
[2018-07-29] MEDS ORDERED: VANCOMYCIN 1,750 MG in NACL 0.9% 500 ML 500 ML IV ONE (17:32)
--- NOTE | 2018-07-29 17:49 | Emergency Department Report ---
Abscess Boil HPI - HPI Chief Complaint: Skin/Abscess/Foreign Body Stated Complaint: BUMP ON BUTTOCKS Time Seen by Provider: 07/29/18 13:47 Duration: 1 Week Location: Lower Extremity Severity: Moderate History: Yes Pain, Yes Purulent Drainage, Yes Insect Bite, No Fever, No Numbness, No Foreign Body, No Previous History HPI: This is a 48-year-old female with history of insulin-dependent diabetes, hypertension, asthma and depression who presents with right upper thigh abscess for one week. Pain is worsened over the last 2 days. She's had drainage. Moderate pain tender to touch. Denies fever. Denies vomiting. She admits to being noncompliant with insulin therapy. She explains that the insulin therapy causes stomach upset and pain. PCP Dr. Vero Matthews Home Medications: Home Medications Medication Instructions Recorded Confirmed Last Taken Benztropine [Cogentin] 1 mg PO QHS 11/29/14 11/29/14 11/28/14 Citalopram [celeXA] 10 mg PO QDAY 11/29/14 11/29/14 11/29/14 Insulin Glargine [Lantus VIAL] 25 unit SUB-Q QHS 11/29/14 11/29/14 11/28/14 Lisinopril [Zestril TAB] 10 mg PO QDAY 11/29/14 11/29/14 11/29/14 Ziprasidone HCl [Geodon] 80 mg PO BID 11/29/14 11/29/14 11/29/14 buPROPion XL [Wellbutrin Xl] 300 mg PO QAM 11/29/14 11/29/14 11/29/14 clonazePAM [KlonoPIN] 2 mg PO QHS 11/29/14 11/29/14 11/28/14 metFORMIN [Glucophage] 500 mg PO BID 11/29/14 11/29/14 11/29/14 risperiDONE [RisperiDONE] 3 mg PO QDAY 11/29/14 11/29/14 11/29/14 Previous Rx's Medication Instructions Recorded Last Taken Type Ciprofloxacin HCl [Ciprofloxacin 500 mg PO Q12H #14 tab 11/29/14 Unknown Rx TAB] Dicyclomine [Bentyl] 10 mg PO QID PRN #20 capsule 03/29/16 Unknown Rx Nitrofurantoin [place]/M-Cryst 100 mg PO Q12HR #14 capsule 03/29/16 Unknown Rx [Macrobid CAP] Ondansetron [Zofran Odt] 4 mg PO QID PRN #20 tab.rapdis 03/29/16 Unknown Rx ALBUTEROL Inhaler (OR & NICU) 1 puff IH Q4H PRN #1 inha 05/12/17 Unknown Rx [ProAir HFA Inhaler] Acetaminophen [Acetaminophen TAB] 500 mg PO Q6HR PRN #30 tablet 05/12/17 Unknown Rx Azithromycin [Zithromax Z-NIDIA] 250 mg PO QDAY #1 pack 05/12/17 Unknown Rx Ciprofloxacin 0.3% (Nf) 2 drop OP Q4H #1 drops 05/12/17 Unknown Rx [Ciprofloxacin OPTH] Allergies/Adverse Reactions: Allergies Allergy/AdvReac Type Severity Reaction Status Date / Time shellfish derived Allergy Swelling Verified 07/29/18 13:28 Sulfa (Sulfonamide Allergy Hives Verified 07/29/18 13:28 Antibiotics) ED Review of Systems ROS: Stated complaint: BUMP ON BUTTOCKS Other details as noted in HPI Comment: All other systems reviewed and negative Constitutional: denies: fever, malaise Respiratory: denies: cough Cardiovascular: denies: chest pain ED Past Medical Hx - Past Medical History Previous Medical History?: Yes Hx Hypertension: Yes Hx Diabetes: Yes Hx Psychiatric Treatment: Yes (depression) Hx Asthma: Yes - Surgical History Hx Cholecystectomy: Yes Additional Surgical History: kidney stone surgery 2, colon biopsy, cyst removal from left upper extremity. hystertectomy - Social History Smoking Status: Never Smoker Substance Use Type: None - Medications Home Medications: Home Medications Medication Instructions Recorded Confirmed Last Taken Type Benztropine [Cogentin] 1 mg PO QHS 11/29/14 11/29/14 11/28/14 History Ciprofloxacin HCl [Ciprofloxacin 500 mg PO Q12H #14 tab 11/29/14 Unknown Rx TAB] Citalopram [celeXA] 10 mg PO QDAY 11/29/14 11/29/14 11/29/14 History Insulin Glargine [Lantus VIAL] 25 unit SUB-Q QHS 11/29/14 11/29/14 11/28/14 History Lisinopril [Zestril TAB] 10 mg PO QDAY 11/29/14 11/29/14 11/29/14 History Ziprasidone HCl [Geodon] 80 mg PO BID 11/29/14 11/29/14 11/29/14 History buPROPion XL [Wellbutrin Xl] 300 mg PO QAM 11/29/14 11/29/14 11/29/14 History clonazePAM [KlonoPIN] 2 mg PO QHS 11/29/14 11/29/14 11/28/14 History metFORMIN [Glucophage] 500 mg PO BID 11/29/14 11/29/14 11/29/14 History risperiDONE [RisperiDONE] 3 mg PO QDAY 11/29/14 11/29/14 11/29/14 History Dicyclomine [Bentyl] 10 mg PO QID PRN #20 capsule 03/29/16 Unknown Rx Nitrofurantoin [place]/M-Cryst 100 mg PO Q12HR #14 capsule 03/29/16 Unknown Rx [Macrobid CAP] Ondansetron [Zofran Odt] 4 mg PO QID PRN #20 tab.rapdis 03/29/16 Unknown Rx ALBUTEROL Inhaler (OR & NICU) 1 puff IH Q4H PRN #1 inha 05/12/17 Unknown Rx [ProAir HFA Inhaler] Acetaminophen [Acetaminophen TAB] 500 mg PO Q6HR PRN #30 tablet 05/12/17 Unknown Rx Azithromycin [Zithromax Z-NIDIA] 250 mg PO QDAY #1 pack 05/12/17 Unknown Rx Ciprofloxacin 0.3% (Nf) 2 drop OP Q4H #1 drops 05/12/17 Unknown Rx [Ciprofloxacin OPTH] ED Abscess Boil Physical Exam - Exam General: Vital signs noted. No distress. Alert and acting appropriately. Size: >5 cm (8 cm in length 4 cm in width, upper medial thigh, two large circular areas of fluctuance 3 cm in width 1.5 cm open ulcer with purulent drainage) Exam: Yes Tenderness, Yes Fluctuance, Yes Surrounding Cellulites/Erythema, Yes Normal Neurologic Exam, Yes Normal Circulation, No Lymphangitis, No Crepitation, No Heart Murmur Exam: General: Well-appearing, no acute distress. HEENT: Normocephalic atraumatic pupils equal round and reactive to light anicteric sclera. Nose: no rhinorrhea. Oropharynx: dry mucous membranes no lesions. Neck: supple, no meningismus. Chest: Clear to auscultation bilaterally no rales rhonchi no wheezes. Cardiac: Regular rate and rhythm no murmurs no rubs no gallops. Abdomen: Soft nontender nondistended positive bowel sounds no guarding. Extr emities: no edema. Neuro: Moves all extremities 4, no gross deficits. Psychiatric: Alert and oriented 4 normal affect normal judgment normal insight ED Course Vital Signs 07/29/18 13:48 Temperature 98.3 F Pulse Rate 122 H Respiratory 16 Rate Blood Pressure 114/77 [Left] O2 Sat by Pulse 99 Oximetry Critical care attestation.: If time is entered above; I have spent that time in minutes in the direct care of this critically ill patient, excluding procedure time. ED Medical Decision Making - Lab Data Result diagrams: 07/29/18 13:59 07/29/18 13:59 Laboratory Results - last 24 hr 07/29/18 07/29/18 07/29/18 13:59 13:59 14:01 WBC 9.8 RBC 5.48 H Hgb 15.3 H Hct 46.7 H MCV 85 MCH 28 MCHC 33 RDW 15.8 H Plt Count 232 Lymph % (Auto) 19.7 [place] % (Auto) 6.5 Eos % (Auto) 1.5 Baso % (Auto) 2.3 H Lymph # 1.9 [place] # 0.6 Eos # 0.1 Baso # 0.2 H Seg Neutrophils % 70.0 Seg Neutrophils # 6.9 Sodium 135 L Potassium 4.9 Chloride 92.7 L Carbon Dioxide 15 L Anion Gap 32 BUN 8 Creatinine 0.9 Estimated GFR > 60 BUN/Creatinine Ratio 9 Glucose 568 H* POC Glucose 478 H Lactic Acid Calcium 9.4 Total Bilirubin 0.30 AST 9 ALT 11 Alkaline Phosphatase 83 Total Protein 7.3 Albumin 3.4 L Albumin/Globulin Ratio 0.9 Urine Color Urine Turbidity Urine pH Ur Specific [place] Urine Protein Urine Glucose (UA) Urine Ketones Urine Blood Urine Nitrite Urine Bilirubin Urine Urobilinogen Ur Leukocyte Esterase Urine WBC (Auto) Urine RBC (Auto) U Epithel Cells (Auto) Urine Bacteria (Auto) 07/29/18 07/29/18 07/29/18 14:04 14:40 15:57 WBC RBC Hgb Hct MCV MCH MCHC RDW Plt Count Lymph % (Auto) [place] % (Auto) Eos % (Auto) Baso % (Auto) Lymph # [place] # Eos # Baso # Seg Neutrophils % Seg Neutrophils # Sodium Potassium Chloride Carbon Dioxide Anion Gap BUN Creatinine Estimated GFR BUN/Creatinine Ratio Glucose POC Glucose Lactic Acid 2.20 H* 1.70 Calcium Total Bilirubin AST ALT Alkaline Phosphatase Total Protein Albumin Albumin/Globulin Ratio Urine Color Straw Urine Turbidity Clear Urine pH 6.0 Ur Specific [place] 1.022 Urine Protein 30 mg/dl Urine Glucose (UA) >=500 Urine Ketones 80 Urine Blood Lg Urine Nitrite Neg Urine Bilirubin Neg Urine Urobilinogen < 2.0 Ur Leukocyte Esterase Neg Urine WBC (Auto) 2.0 Urine RBC (Auto) 18.0 U Epithel Cells (Auto) 2.0 Urine Bacteria (Auto) 1+ ED Disposition Clinical Impression: Abscess of right thigh, DKA (diabetic ketoacidoses) Disposition: 09 OP ADMIT IP TO THIS HOSP Is pt being admited?: Yes Does the pt Need Aspirin: No Condition: Stable
[2018-07-29] MEDS ORDERED: NACL 0.9% 1000 ML 1,000 ML IV ONE ×2 (17:50→17:51)
[2018-07-29] MEDS ORDERED: HumuLIN R IV ONE (17:51)
[2018-07-29] MEDS ORDERED: VANCOMYCIN PHARMACY TO DOSE IV SCH (18:00)
[2018-07-29] MEDS ORDERED: ZOFRAN IV ONE (18:24)
[2018-07-29] MEDS ORDERED: TYLENOL PO ONE (18:24)
[2018-07-29] MEDS ORDERED: MORPHINE IV ONE (18:24)
[2018-07-29] MEDS ORDERED: ZOFRAN IV PRN (19:26)
[2018-07-29] MEDS ORDERED: D50W (25GM) Syringe IV PRN (19:26)
[2018-07-29] MEDS ORDERED: TYLENOL PO PRN (19:26)
[2018-07-29] MEDS ORDERED: SODIUM CHLORIDE FLUSH SYRINGE 10 ML IV PRN (19:26)
[2018-07-29] MEDS ORDERED: APRESOLINE IV PRN (19:44)
[2018-07-29] MEDS ORDERED: PROVENTIL IH PRN (19:54)
[2018-07-29] MEDS ORDERED: HumuLIN R 100 UNITS in NACL 0.9% 99 ML IV SCH (20:00)
[2018-07-29] MEDS ORDERED: NACL 0.9% 1000 ML 1,000 ML IV SCH (20:00)
--- NOTE | 2018-07-29 20:02 | History and Physical Report ---
<VAL TIRADO - Last Filed: 07/29/18 20:19> History of Present Illness Date of examination: 07/29/18 Date of admission: 07/29/2018 Chief complaint: Painful Right groin abscess History of present illness: Miss Stapleton is a 48-year-old -[place] female with history of hypertension, insulin-dependent diabetes noncompliant, asthma, and depression who presented to [facility] ED with complaints of right groin abscess that is warm to touch and painful for the past week. She states that over the past 2 days the abscess has grown in size and the pain has progressively worsened. Her initially started out as a "small bump". Approximately 2 days later spontaneous rupture of the bump occurred with purulent colored drainage. Patient states that she noticed a solid mass forming under the skin that was warm to touch and painful. She rates her pain as 10/10. Patient states that she took Tylenol to help with pain and had no relief. Admits to pain, and malaise. Denies dyspnea, cough, insect bite, fever, chills, or recent sick contact. Past History Past Medical History: diabetes, hypertension, other (asthma, depression) Past Surgical History: cholecystectomy, hysterectomy, Other (colon biopsy, kidney stones 2, cyst removal left upper extremity) Social history: , lives with family. denies: smoking Family history: no significant family history Medications and Allergies Allergies Allergy/AdvReac Type Severity Reaction Status Date / Time shellfish derived Allergy Swelling Verified 07/29/18 13:28 Sulfa (Sulfonamide Allergy Hives Verified 07/29/18 13:28 Antibiotics) Home Medications Medication Instructions Recorded Confirmed Last Taken Type Benztropine [Cogentin] 1 mg PO QHS 11/29/14 07/29/18 11/28/14 History Citalopram [celeXA] 20 mg PO QDAY 11/29/14 07/29/18 11/29/14 History Insulin Glargine [Lantus VIAL] 60 unit SUB-Q QHS 11/29/14 07/29/18 11/28/14 History Ziprasidone HCl [Geodon] 80 mg PO BID 11/29/14 07/29/18 11/29/14 History buPROPion XL [Wellbutrin Xl] 300 mg PO QAM 11/29/14 07/29/18 11/29/14 History clonazePAM [KlonoPIN] 2 mg PO QHS 11/29/14 07/29/18 11/28/14 History risperiDONE [RisperiDONE] 3 mg PO QHS 11/29/14 07/29/18 11/29/14 History ALBUTEROL Inhaler (OR & NICU) 1 puff IH Q4H PRN #1 inha 05/12/17 07/29/18 Unknown Rx [ProAir HFA Inhaler] Insulin Lispro [Humalog] 20 unit SQ TID 07/29/18 07/29/18 Unknown History Losartan [Cozaar] 50 mg PO QDAY 07/29/18 07/29/18 Unknown History Active Meds: Active Medications Acetaminophen (Tylenol) 650 mg PO Q4H PRN PRN Reason: Pain MILD(1-3)/Fever >100.5/CHARLES Albuterol (Proventil) 2.5 mg IH Q4HRT PRN PRN Reason: Shortness Of Breath Benztropine Mesylate (Cogentin) 1 mg PO QHS REJI Bupropion HCl (Wellbutrin Xl) 300 mg PO QAM REJI Citalopram Hydrobromide (Celexa) 10 mg PO QDAY RE[facility] Clonazepam (Klonopin) 2 mg PO QHS [facility] Dextrose (D50w (25gm) Syringe) 0 ml IV PRN PRN PRN Reason: Hypoglycemia Docusate Sodium (Colace) 100 mg PO BID REJI Enoxaparin Sodium (Lovenox) 40 mg SUB-Q QDAY REJI Hydralazine HCl (Apresoline) 10 mg IV Q4HR PRN PRN Reason: Blood Pressure Vancomycin HCl 1,250 mg/ (Sodium Chloride) 275 mls @ 166.667 mls/hr IV Q12H [facility] Insulin Human Regular 100 (units/ Sodium Chloride) 100 mls @ 1 mls/hr IV TITR REJI; Protocol Sodium Chloride (Nacl 0.9% 1000 Ml) 1,000 mls @ 125 mls/hr IV DIRECT REJI Ampicillin Sodium/Sulbactam Sodium (Unasyn/Ns 1.5 Gm/50 Ml) 1.5 gm in 50 mls @ 100 mls/hr IV Q8HR REJI; Protocol Lisinopril (Zestril) 10 mg PO QDAY REJI Miscellaneous Medication (Ziprasidone Hcl [Geodon]) 80 mg PO BID [facility] Morphine Sulfate (Morphine) 2 mg IV Q4H PRN PRN Reason: Pain, Moderate (4-6) Stop: 07/31/18 23:59 Ondansetron HCl (Zofran) 4 mg IV Q8H PRN PRN Reason: Nausea And Vomiting Oxycodone/Acetaminophen (Percocet 5/325) 1 tab PO Q6H PRN PRN Reason: Pain, Moderate (4-6) Sodium Bicarbonate (Sodium Bicarbonate 50meq Syringe) 50 meq IV ONCE ONE Stop: 07/29/18 19:38 Sodium Chloride (Sodium Chloride Flush Syringe 10 Ml) 10 ml IV BID [facility] Sodium Chloride (Sodium Chloride Flush Syringe 10 Ml) 10 ml IV PRN PRN PRN Reason: LINE FLUSH Review of Systems Constitutional: malaise, no weight loss, no weight gain, no fever, no chills, no sweats Ears, nose, mouth and throat: deferred Breasts: deferred Cardiovascular: no chest pain, no orthopnea, no palpitations, no syncope, no lightheadedness, no shortness of breath Respiratory: no cough, no cough with sputum, no hemoptysis, no shortness of breath, no dyspnea on exertion Gastrointestinal: no abdominal pain, no nausea, no vomiting, no diarrhea Genitourinary Female: other (painful right groin abscess warm to touch), no urgency, no stress incontinence, no vaginal itching, no vaginal discharge Menstruation: period normal Rectal: no pain, no incontinence, no bleeding Musculoskeletal: no arm numbness/tingling, no leg numbness/tingling, no redness of joints Integumentary: other (right colon abscess), no rash, no pruritis, no redness Neurological: no paralysis, no weakness, no parathesias Psychiatric: depression, no memory loss, no change in sleep habits, no sleep disturbances, no insomnia, no suicidal ideation Endocrine: no cold intolerance, no heat intolerance, no nocturia, no excessive sweating Hematologic/Lymphatic: no easy bruising, no easy bleeding Allergic/Immunologic: no wheezing Exam - Physical Exam Narrative exam: Physical exam General appearance: Present: Mild distress, awake, alert, oriented 3 - EENT Eyes: Present: PERRL, EOM intact ENT: hearing intact, normal dentition - Neck Neck: Present: supple, normal ROM - Respiratory Respiratory effort: Non-labored Respiratory: Clear throughout) - Cardiovascular Heart rate: 100 (bpm) Rhythm: regular Heart Sounds: Present: S1 & S2. Absent: rub, click - Extremities Extremities: Right groin abscess measuring 8x 4cm 2 large circular areas of fluctuance 3 cm in width 1.5 cm open ulcer with purulent drainage - Peripheral Assessment Peripheral Pulses: within normal limits - Abdominal General gastrointestinal: soft, non-tender, normal bowel sounds - Integumentary Integumentary: Present: warm, dry - Musculoskeletal Musculoskeletal: generalized weakness, able to move all extremities - Psychiatric Psychiatric: cooperative - Constitutional Vitals: Temp Pulse Resp BP Pulse Ox 98.3 F 100 H 18 146/100 98 07/29/18 13:48 07/29/18 19:00 07/29/18 19:16 07/29/18 19:00 07/29/18 19:16 Results - Labs CBC & Chem 7: 07/29/18 13:59 07/29/18 13:59 Labs: Laboratory Last Values WBC 9.8 K/mm3 (4.5-11.0) 07/29/18 13:59 RBC 5.48 M/mm3 (3.65-5.03) H 07/29/18 13:59 Hgb 15.3 gm/dl (10.1-14.3) H 07/29/18 13:59 Hct 46.7 % (30.3-42.9) H 07/29/18 13:59 MCV 85 fl (79-97) 07/29/18 13:59 MCH 28 pg (28-32) 07/29/18 13:59 MCHC 33 % (30-34) 07/29/18 13:59 RDW 15.8 % (13.2-15.2) H 07/29/18 13:59 Plt Count 232 K/mm3 (140-440) 07/29/18 13:59 Lymph % (Auto) 19.7 % (13.4-35.0) 07/29/18 13:59 Porter % (Auto) 6.5 % (0.0-7.3) 07/29/18 13:59 Eos % (Auto) 1.5 % (0.0-4.3) 07/29/18 13:59 Baso % (Auto) 2.3 % (0.0-1.8) H 07/29/18 13:59 Lymph # 1.9 K/mm3 (1.2-5.4) 07/29/18 13:59 Porter # 0.6 K/mm3 (0.0-0.8) 07/29/18 13:59 Eos # 0.1 K/mm3 (0.0-0.4) 07/29/18 13:59 Baso # 0.2 K/mm3 (0.0-0.1) H 07/29/18 13:59 Seg Neutrophils % 70.0 % (40.0-70.0) 07/29/18 13:59 Seg Neutrophils # 6.9 K/mm3 (1.8-7.7) 07/29/18 13:59 VBG pH 7.273 (7.320-7.420) L 07/29/18 17:58 Sodium 135 mmol/L (137-145) L 07/29/18 13:59 Potassium 4.9 mmol/L (3.6-5.0) 07/29/18 13:59 Chloride 92.7 mmol/L (98-107) L 07/29/18 13:59 Carbon Dioxide 15 mmol/L (22-30) L 07/29/18 13:59 32 mmol/L 07/29/18 13:59 BUN 8 mg/dL (7-17) 07/29/18 13:59 0.9 mg/dL (0.7-1.2) 07/29/18 13:59 Estimated GFR > 60 ml/min 07/29/18 13:59 9 % 07/29/18 13:59 Glucose 568 mg/dL (65-100) H* 07/29/18 13:59 POC Glucose 478 (70-105) H 07/29/18 14:01 Lactic Acid 1.70 mmol/L (0.7-2.0) 07/29/18 15:57 Calcium 9.4 mg/dL (8.4-10.2) 07/29/18 13:59 0.30 mg/dL (0.1-1.2) 07/29/18 13:59 AST 9 units/L (5-40) 07/29/18 13:59 ALT 11 units/L (7-56) 07/29/18 13:59 83 units/L (35-129) 07/29/18 13:59 7.3 g/dL (6.3-8.2) 07/29/18 13:59 3.4 g/dL (3.9-5) L 07/29/18 13:59 0.9 % 07/29/18 13:59 Straw (Yellow) 07/29/18 14:40 Clear (Clear) 07/29/18 14:40 6.0 (5.0-7.0) 07/29/18 14:40 Ur Specific [place] 1.022 (1.003-1.030) 07/29/18 14:40 30 mg/dl mg/dL (Negative) 07/29/18 14:40 >=500 mg/dL (Negative) 07/29/18 14:40 80 mg/dL (Negative) 07/29/18 14:40 Lg (Negative) 07/29/18 14:40 Neg (Negative) 07/29/18 14:40 Neg (Negative) 07/29/18 14:40 < 2.0 mg/dL (<2.0) 07/29/18 14:40 Ur Leukocyte Esterase Neg (Negative) 07/29/18 14:40 2.0 /HPF (0.0-6.0) 07/29/18 14:40 18.0 /HPF (0.0-6.0) 07/29/18 14:40 U Epithel Cells (Auto) 2.0 /HPF (0-13.0) 07/29/18 14:40 1+ /HPF (Negative) 07/29/18 14:40 Short CBC 07/29/18 Range/Units 13:59 WBC 9.8 (4.5-11.0) K/mm3 Hgb 15.3 H (10.1-14.3) gm/dl Hct 46.7 H (30.3-42.9) % Plt Count 232 (140-440) K/mm3 BMP 07/29/18 13:59 Sodium 135 L Potassium 4.9 Chloride 92.7 L Carbon Dioxide 15 L BUN 8 Creatinine 0.9 Glucose 568 H* Calcium 9.4 Liver Function 07/29/18 Range/Units 13:59 Total Bilirubin 0.30 (0.1-1.2) mg/dL AST 9 (5-40) units/L ALT 11 (7-56) units/L Alkaline Phosphatase 83 (35-129) units/L Albumin 3.4 L (3.9-5) g/dL Urine 07/29/18 Range/Units 14:40 Urine Color Straw (Yellow) Urine pH 6.0 (5.0-7.0) Ur Specific [place] 1.022 (1.003-1.030) Urine Protein 30 mg/dl (Negative) mg/dL Urine Glucose (UA) >=500 (Negative) mg/dL Assessment and Plan Assessment and plan: Miss Stapleton is a 48-year-old -[place] female with history of hypertension, insulin-dependent diabetes noncompliant, asthma, and depression who presented to [facility] ED with complaints of right groin abscess that is warm to touch and painful for the past week. Right groin abscess measuring 8x 4cm with 2 large circular areas of fluctuance 3 cm in width 1.5 cm open ulcer with purulent drainage. Patient was also found to be in DKA with anion gap of 32, blood glucose of 568, inital Lactic Acid of 2.20, and pH 7.27. She was placed on DKA protocol which includes insulin drip. Repeat lactic acid shows imp rovement at 1.70. Patient will be admitted to ICU. Dr. Owens (Gen Surg) has been consult with the plans for exploration incision and drainage tomorrow. DKA Right groin abscess/ cellulitis Insulin-dependent diabetes-noncompliant Hypertensive urgency History hypertension History of depression History of asthma Plans: On insulin drip per DKA protocol with hourly blood glucose monitoring IVF NS @ 125ml/hr Bicarbonate 50 Meq Monitor labs Start Unasyn On vancomycin Albuterol when necessary Monitor BP Resume home lisinopril 10 mg daily IV hydralazine when necessary Dr. Owens consulted and following ID consult pending Nothing by mouth at midnight Plans for exploratory I&D tomorrow Resume home Celexa, Klonopin, Wellbutrin, Geodon Advance Directives: No VTE prophylaxis?: Chemical <JOSE M FONSECA E - Last Filed: 07/29/18 22:44> History of Present Illness Date of admission: 07/29/18 19:26 Medications and Allergies Active Meds: Active Medications Acetaminophen (Tylenol) 650 mg PO Q4H PRN PRN Reason: Pain MILD(1-3)/Fever >100.5/CHARLES Albuterol (Proventil) 2.5 mg IH Q4HRT PRN PRN Reason: Shortness Of Breath Benztropine Mesylate (Cogentin) 1 mg PO QHS [facility] Last Admin: 07/29/18 22:16 Dose: 1 mg Documented by: Bupropion HCl (Wellbutrin Xl) 300 mg PO QAM [facility] Citalopram Hydrobromide (Celexa) 10 mg PO QDAY [facility] Clonazepam (Klonopin) 2 mg PO QHS [facility] Last Admin: 07/29/18 22:16 Dose: 2 mg Documented by: Dextrose (D50w (25gm) Syringe) 0 ml IV PRN PRN PRN Reason: Hypoglycemia Docusate Sodium (Colace) 100 mg PO BID [facility] Last Admin: 07/29/18 22:16 Dose: 100 mg Documented by: Enoxaparin Sodium (Lovenox) 40 mg SUB-Q QDAY [facility] Last Admin: 07/29/18 21:16 Dose: 40 mg Documented by: Hydralazine HCl (Apresoline) 10 mg IV Q4HR PRN PRN Reason: Blood Pressure Vancomycin HCl 1,250 mg/ (Sodium Chloride) 275 mls @ 166.667 mls/hr IV Q12H [facility] Insulin Human Regular 100 (units/ Sodium Chloride) 100 mls @ 1 mls/hr IV TITR [facility]; Protocol Last Admin: 07/29/18 21:58 Dose: 6 units/hr, 6 mls/hr Documented by: Ampicillin Sodium/Sulbactam Sodium (Unasyn/Ns 1.5 Gm/50 Ml) 1.5 gm in 50 mls @ 100 mls/hr IV Q8HR [facility]; Protocol Dextrose/Sodium Chloride (D5/0.45ns) 1,000 mls @ 150 mls/hr IV DIRECT [facility] Lisinopril (Zestril) 10 mg PO QDAY [facility] Morphine Sulfate (Morphine) 2 mg IV Q4H PRN PRN Reason: Pain, Moderate (4-6) Stop: 07/31/18 23:59 Ondansetron HCl (Zofran) 4 mg IV Q8H PRN PRN Reason: Nausea And Vomiting Oxycodone/Acetaminophen (Percocet 5/325) 1 tab PO Q6H PRN PRN Reason: Pain, Moderate (4-6) Sodium Chloride (Sodium Chloride Flush Syringe 10 Ml) 10 ml IV BID [facility] Last Admin: 07/29/18 22:17 Dose: 10 ml Documented by: Sodium Chloride (Sodium Chloride Flush Syringe 10 Ml) 10 ml IV PRN PRN PRN Reason: LINE FLUSH Ziprasidone (Geodon) 80 mg PO BID [facility] Last Admin: 07/29/18 22:16 Dose: 80 mg Documented by: Exam - Constitutional Vitals: Temp Pulse Resp BP Pulse Ox 98.3 F 100 H 21 144/94 96 07/29/18 13:48 07/29/18 21:01 07/29/18 21:01 07/29/18 21:01 07/29/18 21:01 Results - Labs CBC & Chem 7: 07/29/18 13:59 07/29/18 20:47 Labs: Laboratory Last Values WBC 9.8 K/mm3 (4.5-11.0) 07/29/18 13:59 RBC 5.48 M/mm3 (3.65-5.03) H 07/29/18 13:59 Hgb 15.3 gm/dl (10.1-14.3) H 07/29/18 13:59 Hct 46.7 % (30.3-42.9) H 07/29/18 13:59 MCV 85 fl (79-97) 07/29/18 13:59 MCH 28 pg (28-32) 07/29/18 13:59 MCHC 33 % (30-34) 07/29/18 13:59 RDW 15.8 % (13.2-15.2) H 07/29/18 13:59 Plt Count 232 K/mm3 (140-440) 07/29/18 13:59 Lymph % (Auto) 19.7 % (13.4-35.0) 07/29/18 13:59 Porter % (Auto) 6.5 % (0.0-7.3) 07/29/18 13:59 Eos % (Auto) 1.5 % (0.0-4.3) 07/29/18 13:59 Baso % (Auto) 2.3 % (0.0-1.8) H 07/29/18 13:59 Lymph # 1.9 K/mm3 (1.2-5.4) 07/29/18 13:59 Porter # 0.6 K/mm3 (0.0-0.8) 07/29/18 13:59 Eos # 0.1 K/mm3 (0.0-0.4) 07/29/18 13:59 Baso # 0.2 K/mm3 (0.0-0.1) H 07/29/18 13:59 Seg Neutrophils % 70.0 % (40.0-70.0) 07/29/18 13:59 Seg Neutrophils # 6.9 K/mm3 (1.8-7.7) 07/29/18 13:59 VBG pH 7.273 (7.320-7.420) L 07/29/18 17:58 Sodium 140 mmol/L (137-145) 07/29/18 20:47 Potassium 4.6 mmol/L (3.6-5.0) 07/29/18 20:47 Chloride 104.6 mmol/L (98-107) 07/29/18 20:47 Carbon Dioxide 19 mmol/L (22-30) L 07/29/18 20:47 21 mmol/L 07/29/18 20:47 BUN 6 mg/dL (7-17) L 07/29/18 20:47 0.6 mg/dL (0.7-1.2) L 07/29/18 20:47 Estimated GFR > 60 ml/min 07/29/18 20:47 10 % 07/29/18 20:47 Glucose 377 mg/dL (65-100) H 07/29/18 20:47 POC Glucose 303 (70-105) H 07/29/18 21:33 Lactic Acid 1.70 mmol/L (0.7-2.0) 07/29/18 15:57 Calcium 8.5 mg/dL (8.4-10.2) 07/29/18 20:47 Phosphorus 2.10 mg/dL (2.5-4.5) L 07/29/18 20:47 Magnesium 1.70 mg/dL (1.7-2.3) 07/29/18 20:47 0.30 mg/dL (0.1-1.2) 07/29/18 13:59 AST 9 units/L (5-40) 07/29/18 13:59 ALT 11 units/L (7-56) 07/29/18 13:59 83 units/L (35-129) 07/29/18 13:59 7.3 g/dL (6.3-8.2) 07/29/18 13:59 3.4 g/dL (3.9-5) L 07/29/18 13:59 0.9 % 07/29/18 13:59 Straw (Yellow) 07/29/18 14:40 Clear (Clear) 07/29/18 14:40 6.0 (5.0-7.0) 07/29/18 14:40 Ur Specific [place] 1.022 (1.003-1.030) 07/29/18 14:40 30 mg/dl mg/dL (Negative) 07/29/18 14:40 >=500 mg/dL (Negative) 07/29/18 14:40 80 mg/dL (Negative) 07/29/18 14:40 Lg (Negative) 07/29/18 14:40 Neg (Negative) 07/29/18 14:40 Neg (Negative) 07/29/18 14:40 < 2.0 mg/dL (<2.0) 07/29/18 14:40 Ur Leukocyte Esterase Neg (Negative) 07/29/18 14:40 2.0 /HPF (0.0-6.0) 07/29/18 14:40 18.0 /HPF (0.0-6.0) 07/29/18 14:40 U Epithel Cells (Auto) 2.0 /HPF (0-13.0) 07/29/18 14:40 1+ /HPF (Negative) 07/29/18 14:40 Assessment and Plan Assessment and plan: 48-year-old lady with a history of hypertension, diabetes, depression sent to the emergency room for evaluation. She stated that 3 days ago she had a bump in the right groin area that popped 2 days later with blood tinge pus discharge. The area of infection is clinically growing size resulting increasing pain, difficulty sitting. She denies any fever or chills. She has not taken her insulin in 3 months. Physical exam is significant for extensive area of induration anteriorly around the labia majora, extending posteriorly, erythema, tender to touch, open wound about 2 cm. She is also in DKA on insulin drip. Agree with plan as discussed above, in addition consult critical care. Patient seen and examined, case discussed with [employer].
[2018-07-29] MEDS ORDERED: LOVENOX SUB-Q ONE (21:12)
[2018-07-29] MEDS: LOVENOX SUB-Q SCH (21:16)
[2018-07-29 21:26] LABS: BUN/Creatinine Ratio 10; Blood Urea Nitrogen 6 mg/dL (7-17); Calcium 8.5 mg/dL (8.4-10.2); Hemolysis Index 5
[2018-07-29] MEDS ORDERED: NON-FORMULARY (Ziprasidone Hcl [Geodon] 80 MG) PO SCH (22:00)
[2018-07-29] MEDS: COLACE PO SCH (22:16)
[2018-07-29] MEDS: GEODON PO SCH (22:16)
[2018-07-29] MEDS: COGENTIN PO SCH (22:16)
[2018-07-29] MEDS: SODIUM CHLORIDE FLUSH SYRINGE 10 ML IV SCH (22:17)
[2018-07-29] MEDS: UNASYN/NS 1.5 GM/50 ML 1.5 GM/50 ML BAG IV SCH (22:57)
[2018-07-29] MEDS ORDERED: D5/0.45NS 1,000 ML IV SCH (23:00)
[2018-07-29 23:11] LABS: BUN/Creatinine Ratio 7; Blood Urea Nitrogen 5 mg/dL (7-17); Calcium 8.4 mg/dL (8.4-10.2); Hemolysis Index 7
[2018-07-30 01:36] LABS: BUN/Creatinine Ratio 7; Blood Urea Nitrogen 4 mg/dL (7-17); Calcium 8.6 mg/dL (8.4-10.2); Hemolysis Index 0
[2018-07-30] MEDS ORDERED: D5W/0.45% NACL/KCL 20 MEQ 20 MEQ/1,000 ML BAG IV SCH (02:00)
[2018-07-30] MEDS: MORPHINE IV PRN ×3 (04:44→21:45)
[2018-07-30] MEDS: UNASYN/NS 1.5 GM/50 ML 1.5 GM/50 ML BAG IV SCH ×2 (05:08→20:29)
[2018-07-30 05:40] LABS: BUN/Creatinine Ratio 10; Blood Urea Nitrogen 4 mg/dL (7-17); Calcium 8.5 mg/dL (8.4-10.2); Hemolysis Index 9
[2018-07-30] MEDS: VANCOMYCIN 1,250 MG in NACL 0.9% 250ML 250 ML IV SCH ×2 (06:12→18:37)
[2018-07-30] MEDS ORDERED: D50W (25GM) Syringe IV PRN (06:27)
[2018-07-30] MEDS: SODIUM CHLORIDE FLUSH SYRINGE 10 ML IV SCH ×2 (09:35→21:46)
[2018-07-30] MEDS: ZESTRIL PO SCH (09:35)
[2018-07-30] MEDS: COLACE PO SCH ×2 (09:35→21:47)
[2018-07-30] MEDS: GEODON PO SCH ×2 (09:36→22:37)
[2018-07-30] MEDS: celeXA PO SCH (09:36)
[2018-07-30] MEDS: WELLBUTRIN XL PO SCH (09:36)
[2018-07-30] MEDS: LOVENOX SUB-Q SCH (09:37)
--- NOTE | 2018-07-30 09:58 | Consultation ---
History of Present Illness Consult date: 07/30/18 Reason for consult: wound care Requesting physician: ZOË HAIRSTON Chief complaint: right thigh swelling and pain - History of present illness History of present illness: 48yo F with poorly controlled DM presents to ED with c/o progressively worsening pain and swelling in the right thigh. +spontaneous drainage. Denies F/C/N/V. Had something similar in the right axilla that required drainage. Past History Past Medical History: diabetes, hypertension, other (asthma, depression) Past Surgical History: cholecystectomy, hysterectomy, Other (colon biopsy, kidney stones 2, cyst removal left upper extremity) Social history: , lives with family. denies: smoking Family history: no significant family history Medications and Allergies Allergies Allergy/AdvReac Type Severity Reaction Status Date / Time shellfish derived Allergy Swelling Verified 07/29/18 13:28 Sulfa (Sulfonamide Allergy Hives Verified 07/29/18 13:28 Antibiotics) Home Medications Medication Instructions Recorded Confirmed Last Taken Type Benztropine [Cogentin] 1 mg PO QHS 11/29/14 07/29/18 11/28/14 History Citalopram [celeXA] 20 mg PO QDAY 11/29/14 07/29/18 11/29/14 History Insulin Glargine [Lantus VIAL] 60 unit SUB-Q QHS 11/29/14 07/29/18 11/28/14 History Ziprasidone HCl [Geodon] 80 mg PO BID 11/29/14 07/29/18 11/29/14 History buPROPion XL [Wellbutrin Xl] 300 mg PO QAM 11/29/14 07/29/18 11/29/14 History clonazePAM [KlonoPIN] 2 mg PO QHS 11/29/14 07/29/18 11/28/14 History risperiDONE [RisperiDONE] 3 mg PO QHS 11/29/14 07/29/18 11/29/14 History ALBUTEROL Inhaler (OR & NICU) 1 puff IH Q4H PRN #1 inha 05/12/17 07/29/18 Unknown Rx [ProAir HFA Inhaler] Insulin Lispro [Humalog] 20 unit SQ TID 07/29/18 07/29/18 Unknown History Losartan [Cozaar] 50 mg PO QDAY 07/29/18 07/29/18 Unknown History Active Meds: Active Medications Acetaminophen (Tylenol) 650 mg PO Q4H PRN PRN Reason: Pain MILD(1-3)/Fever >100.5/CHARLES Albuterol (Proventil) 2.5 mg IH Q4HRT PRN PRN Reason: Shortness Of Breath Benztropine Mesylate (Cogentin) 1 mg PO QHS [facility] Last Admin: 07/29/18 22:16 Dose: 1 mg Documented by: Bupropion HCl (Wellbutrin Xl) 300 mg PO QAM [facility] Last Admin: 07/30/18 09:36 Dose: 300 mg Documented by: Citalopram Hydrobromide (Celexa) 10 mg PO QDAY [facility] Last Admin: 07/30/18 09:36 Dose: 10 mg Documented by: Clonazepam (Klonopin) 2 mg PO QHS [facility] Last Admin: 07/29/18 22:16 Dose: 2 mg Documented by: Dextrose (D50w (25gm) Syringe) 50 ml IV PRN PRN PRN Reason: Hypoglycemia Docusate Sodium (Colace) 100 mg PO BID [facility] Last Admin: 07/30/18 09:35 Dose: 100 mg Documented by: Enoxaparin Sodium (Lovenox) 40 mg SUB-Q QDAY [facility] Last Admin: 07/30/18 09:37 Dose: Not Given Documented by: Hydralazine HCl (Apresoline) 10 mg IV Q4HR PRN PRN Reason: Blood Pressure Vancomycin HCl 1,250 mg/ (Sodium Chloride) 275 mls @ 166.667 mls/hr IV Q12H [facility] Last Admin: 07/30/18 06:12 Dose: 166.667 mls/hr Documented by: Ampicillin Sodium/Sulbactam Sodium (Unasyn/Ns 1.5 Gm/50 Ml) 1.5 gm in 50 mls @ 100 mls/hr IV Q8HR [facility]; Protocol Last Admin: 07/30/18 05:08 Dose: 100 mls/hr Documented by: Potassium Chloride/Dextrose/Sod Cl (D5w/0.45% Nacl/Kcl 20 Meq) 20 meq in 1,000 mls @ 125 mls/hr IV DIRECT [facility] Last Admin: 07/30/18 01:57 Dose: 125 mls/hr Documented by: Insulin Glargine (Lantus) 10 units SUB-Q QHS [facility] Insulin Human Lispro (Humalog) 0 unit SUB-Q Q6HR [facility]; Protocol Lisinopril (Zestril) 10 mg PO QDAY [facility] Last Admin: 07/30/18 09:35 Dose: 10 mg Documented by: Morphine Sulfate (Morphine) 2 mg IV Q4H PRN PRN Reason: Pain, Moderate (4-6) Stop: 07/31/18 23:59 Last Admin: 07/30/18 04:44 Dose: 2 mg Documented by: Ondansetron HCl (Zofran) 4 mg IV Q8H PRN PRN Reason: Nausea And Vomiting Oxycodone/Acetaminophen (Percocet 5/325) 1 tab PO Q6H PRN PRN Reason: Pain, Moderate (4-6) Sodium Chloride (Sodium Chloride Flush Syringe 10 Ml) 10 ml IV BID [facility] Last Admin: 07/30/18 09:35 Dose: 10 ml Documented by: Sodium Chloride (Sodium Chloride Flush Syringe 10 Ml) 10 ml IV PRN PRN PRN Reason: LINE FLUSH Ziprasidone (Geodon) 80 mg PO BID [facility] Last Admin: 07/30/18 09:36 Dose: 80 mg Documented by: Review of Systems - Constitutional no fever, no chills, no chronic pain - Cardiovascular no chest pain, no shortness of breath - Respiratory no cough - Gastrointestinal no abdominal pain, no nausea, no vomiting - Genitourinary Genitourinary: no dysuria - Muskuloskeletal no low back pain right: hip pain - Integumentary boils Exam Vital Signs Temp Pulse Resp BP Pulse Ox 98.3 F 122 H 16 114/77 99 07/29/18 13:48 07/29/18 13:48 07/29/18 13:48 07/29/18 13:48 07/29/18 13:48 - General physical appearance Positive: no distress, no pain, other (affect appears slightly odd) - Eyes Positive: normal occular movement - Respiratory Positive: normal expansion, normal respiratory effort - Integumentary other (about 15cm of induration and tenderness in the right medial thigh. purulent drainage noted close to buttock. ) - Neurologic Neurologic: alert and oriented to time, place and person - Psychiatric Psychiatric: appropriate mood/affect, intact judgment & insight Results - Labs 07/29/18 13:59 07/30/18 04:16 Abnormal lab results 07/29/18 07/29/18 07/29/18 Range/Units 13:59 13:59 14:01 RBC 5.48 H (3.65-5.03) M/mm3 Hgb 15.3 H (10.1-14.3) gm/dl Hct 46.7 H (30.3-42.9) % RDW 15.8 H (13.2-15.2) % Baso % (Auto) 2.3 H (0.0-1.8) % Baso # 0.2 H (0.0-0.1) K/mm3 VBG pH (7.320-7.420) Sodium 135 L (137-145) mmol/L Potassium (3.6-5.0) mmol/L Chloride 92.7 L (98-107) mmol/L Carbon Dioxide 15 L (22-30) mmol/L BUN (7-17) mg/dL Creatinine (0.7-1.2) mg/dL Glucose 568 H* (65-100) mg/dL POC Glucose 478 H (70-105) Hemoglobin A1c (4-6) % Lactic Acid (0.7-2.0) mmol/L Phosphorus (2.5-4.5) mg/dL Albumin 3.4 L (3.9-5) g/dL 07/29/18 07/29/18 07/29/18 Range/Units 14:04 17:58 20:47 RBC (3.65-5.03) M/mm3 Hgb (10.1-14.3) gm/dl Hct (30.3-42.9) % RDW (13.2-15.2) % Baso % (Auto) (0.0-1.8) % Baso # (0.0-0.1) K/mm3 VBG pH 7.273 L (7.320-7.420) Sodium (137-145) mmol/L Potassium (3.6-5.0) mmol/L Chloride (98-107) mmol/L Carbon Dioxide (22-30) mmol/L BUN (7-17) mg/dL Creatinine (0.7-1.2) mg/dL Glucose (65-100) mg/dL POC Glucose (70-105) Hemoglobin A1c (4-6) % Lactic Acid 2.20 H* (0.7-2.0) mmol/L Phosphorus 2.10 L (2.5-4.5) mg/dL Albumin (3.9-5) g/dL 07/29/18 07/29/18 07/29/18 Range/Units 20:47 20:47 21:33 RBC (3.65-5.03) M/mm3 Hgb (10.1-14.3) gm/dl Hct (30.3-42.9) % RDW (13.2-15.2) % Baso % (Auto) (0.0-1.8) % Baso # (0.0-0.1) K/mm3 VBG pH (7.320-7.420) Sodium (137-145) mmol/L Potassium (3.6-5.0) mmol/L Chloride (98-107) mmol/L Carbon Dioxide 19 L (22-30) mmol/L BUN 6 L (7-17) mg/dL Creatinine 0.6 L (0.7-1.2) mg/dL Glucose 377 H (65-100) mg/dL POC Glucose 303 H (70-105) Hemoglobin A1c 16.3 H (4-6) % Lactic Acid (0.7-2.0) mmol/L Phosphorus (2.5-4.5) mg/dL Albumin (3.9-5) g/dL 07/29/18 07/29/18 07/30/18 Range/Units 22:41 23:04 00:03 RBC (3.65-5.03) M/mm3 Hgb (10.1-14.3) gm/dl Hct (30.3-42.9) % RDW (13.2-15.2) % Baso % (Auto) (0.0-1.8) % Baso # (0.0-0.1) K/mm3 VBG pH (7.320-7.420) Sodium (137-145) mmol/L Potassium (3.6-5.0) mmol/L Chloride (98-107) mmol/L Carbon Dioxide 18 L (22-30) mmol/L BUN 5 L (7-17) mg/dL Creatinine (0.7-1.2) mg/dL Glucose 421 H (65-100) mg/dL POC Glucose 354 H 219 H (70-105) Hemoglobin A1c (4-6) % Lactic Acid (0.7-2.0) mmol/L Phosphorus (2.5-4.5) mg/dL Albumin (3.9-5) g/dL 07/30/18 07/30/18 07/30/18 Range/Units 00:55 00:56 02:08 RBC (3.65-5.03) M/mm3 Hgb (10.1-14.3) gm/dl Hct (30.3-42.9) % RDW (13.2-15.2) % Baso % (Auto) (0.0-1.8) % Baso # (0.0-0.1) K/mm3 VBG pH (7.320-7.420) Sodium (137-145) mmol/L Potassium 3.4 L (3.6-5.0) mmol/L Chloride 107.3 H (98-107) mmol/L Carbon Dioxide (22-30) mmol/L BUN 4 L (7-17) mg/dL Creatinine 0.6 L (0.7-1.2) mg/dL Glucose 144 H (65-100) mg/dL POC Glucose 154 H 120 H (70-105) Hemoglobin A1c (4-6) % Lactic Acid (0.7-2.0) mmol/L Phosphorus (2.5-4.5) mg/dL Albumin (3.9-5) g/dL 07/30/18 07/30/18 07/30/18 Range/Units 03:01 04:16 04:17 RBC (3.65-5.03) M/mm3 Hgb (10.1-14.3) gm/dl Hct (30.3-42.9) % RDW (13.2-15.2) % Baso % (Auto) (0.0-1.8) % Baso # (0.0-0.1) K/mm3 VBG pH (7.320-7.420) Sodium (137-145) mmol/L Potassium (3.6-5.0) mmol/L Chloride (98-107) mmol/L Carbon Dioxide (22-30) mmol/L BUN 4 L (7-17) mg/dL Creatinine 0.4 L (0.7-1.2) mg/dL Glucose 135 H (65-100) mg/dL POC Glucose 133 H 135 H (70-105) Hemoglobin A1c (4-6) % Lactic Acid (0.7-2.0) mmol/L Phosphorus (2.5-4.5) mg/dL Albumin (3.9-5) g/dL 07/30/18 07/30/18 Range/Units 05:09 06:03 RBC (3.65-5.03) M/mm3 Hgb (10.1-14.3) gm/dl Hct (30.3-42.9) % RDW (13.2-15.2) % Baso % (Auto) (0.0-1.8) % Baso # (0.0-0.1) K/mm3 VBG pH (7.320-7.420) Sodium (137-145) mmol/L Potassium (3.6-5.0) mmol/L Chloride (98-107) mmol/L Carbon Dioxide (22-30) mmol/L BUN (7-17) mg/dL Creatinine (0.7-1.2) mg/dL Glucose (65-100) mg/dL POC Glucose 140 H 117 H (70-105) Hemoglobin A1c (4-6) % Lactic Acid (0.7-2.0) mmol/L Phosphorus (2.5-4.5) mg/dL Albumin (3.9-5) g/dL Diabetes panel 07/29/18 07/29/18 07/29/18 Range/Units 13:59 20:47 20:47 Sodium 135 L 140 (137-145) mmol/L Potassium 4.9 4.6 (3.6-5.0) mmol/L Chloride 92.7 L 104.6 (98-107) mmol/L Carbon Dioxide 15 L 19 L (22-30) mmol/L BUN 8 6 L (7-17) mg/dL Creatinine 0.9 0.6 L (0.7-1.2) mg/dL Glucose 568 H* 377 H (65-100) mg/dL Hemoglobin A1c 16.3 H (4-6) % Calcium 9.4 8.5 (8.4-10.2) mg/dL AST 9 (5-40) units/L ALT 11 (7-56) units/L Alkaline Phosphatase 83 (35-129) units/L Total Protein 7.3 (6.3-8.2) g/dL Albumin 3.4 L (3.9-5) g/dL 07/29/18 07/30/18 07/30/18 Range/Units 22:41 00:55 04:16 Sodium 138 143 142 (137-145) mmol/L Potassium 3.6 D 3.4 L 3.6 (3.6-5.0) mmol/L Chloride 101.8 107.3 H 106.4 (98-107) mmol/L Carbon Dioxide 18 L 22 22 (22-30) mmol/L BUN 5 L 4 L 4 L (7-17) mg/dL Creatinine 0.7 0.6 L 0.4 L (0.7-1.2) mg/dL Glucose 421 H 144 H 135 H (65-100) mg/dL Hemoglobin A1c (4-6) % Calcium 8.4 8.6 8.5 (8.4-10.2) mg/dL AST (5-40) units/L ALT (7-56) units/L Alkaline Phosphatase (35-129) units/L Total Protein (6.3-8.2) g/dL Albumin (3.9-5) g/dL Calcium panel 07/29/18 07/29/18 07/29/18 Range/Units 13:59 20:47 20:47 Calcium 9.4 8.5 (8.4-10.2) mg/dL Phosphorus 2.10 L (2.5-4.5) mg/dL Albumin 3.4 L (3.9-5) g/dL 07/29/18 07/30/18 07/30/18 Range/Units 22:41 00:55 04:16 Calcium 8.4 8.6 8.5 (8.4-10.2) mg/dL Phosphorus (2.5-4.5) mg/dL Albumin (3.9-5) g/dL Pituitary panel 07/29/18 07/29/18 07/29/18 Range/Units 13:59 20:47 22:41 Sodium 135 L 140 138 (137-145) mmol/L Potassium 4.9 4.6 3.6 D (3.6-5.0) mmol/L Chloride 92.7 L 104.6 101.8 (98-107) mmol/L Carbon Dioxide 15 L 19 L 18 L (22-30) mmol/L BUN 8 6 L 5 L (7-17) mg/dL Creatinine 0.9 0.6 L 0.7 (0.7-1.2) mg/dL Glucose 568 H* 377 H 421 H (65-100) mg/dL Calcium 9.4 8.5 8.4 (8.4-10.2) mg/dL 07/30/18 07/30/18 Range/Units 00:55 04:16 Sodium 143 142 (137-145) mmol/L Potassium 3.4 L 3.6 (3.6-5.0) mmol/L Chloride 107.3 H 106.4 (98-107) mmol/L Carbon Dioxide 22 22 (22-30) mmol/L BUN 4 L 4 L (7-17) mg/dL Creatinine 0.6 L 0.4 L (0.7-1.2) mg/dL Glucose 144 H 135 H (65-100) mg/dL Calcium 8.6 8.5 (8.4-10.2) mg/dL Adrenal panel 07/29/18 07/29/18 07/29/18 Range/Units 13:59 20:47 22:41 Sodium 135 L 140 138 (137-145) mmol/L Potassium 4.9 4.6 3.6 D (3.6-5.0) mmol/L Chloride 92.7 L 104.6 101.8 (98-107) mmol/L Carbon Dioxide 15 L 19 L 18 L (22-30) mmol/L BUN 8 6 L 5 L (7-17) mg/dL Creatinine 0.9 0.6 L 0.7 (0.7-1.2) mg/dL Glucose 568 H* 377 H 421 H (65-100) mg/dL Calcium 9.4 8.5 8.4 (8.4-10.2) mg/dL Total Bilirubin 0.30 (0.1-1.2) mg/dL AST 9 (5-40) units/L ALT 11 (7-56) units/L Alkaline Phosphatase 83 (35-129) units/L Total Protein 7.3 (6.3-8.2) g/dL Albumin 3.4 L (3.9-5) g/dL 07/30/18 07/30/18 Range/Units 00:55 04:16 Sodium 143 142 (137-145) mmol/L Potassium 3.4 L 3.6 (3.6-5.0) mmol/L Chloride 107.3 H 106.4 (98-107) mmol/L Carbon Dioxide 22 22 (22-30) mmol/L BUN 4 L 4 L (7-17) mg/dL Creatinine 0.6 L 0.4 L (0.7-1.2) mg/dL Glucose 144 H 135 H (65-100) mg/dL Calcium 8.6 8.5 (8.4-10.2) mg/dL Total Bilirubin (0.1-1.2) mg/dL AST (5-40) units/L ALT (7-56) units/L Alkaline Phosphatase (35-129) units/L Total Protein (6.3-8.2) g/dL Albumin (3.9-5) g/dL Assessment and Plan - Patient Problems (1) Abscess of right thigh Current Visit: Yes Status: Acute Plan to address problem: Pt stable. blood sugars are better. Pt in need of operative I&D. Procedure, risks, benefits discussed. All questions answered. Consent obtained. Will proceed to OR today. Please call with questions. Time=30min
[2018-07-30] MEDS ORDERED: LACTATED RINGERS 1,000 ML IV SCH (10:00)
--- NOTE | 2018-07-30 10:39 | Progress Note ---
Assessment and Plan Assessment and plan: DKA Admitted to ICU Blood glucose improved on Insulin drip Anion gap closed Off Insulin drip Resume home lantus 60 Units qhs Resume Humalog 20 Units qac Medical noncompliance. Patient states has not taken Insulin in 3 months Right thigh abscess Evaluated by Surg For OR today Obesity I counseled her on diet and exercise to lose weight Full code Stable to transfer to med/surg. History Interval history: right thigh abscess Hospitalist Physical - Physical exam Narrative exam: en: Not in acute distress, lying in bed,obese HEENT: Normocephalic, atraumatic Neck: supple, no JVD Heart: S1 and S2 reg, no murmurs, rubs or gallop Lungs: Clear, no crackles Abd: soft, non tender, non distended, normal BS Ext: Upper right thigh tender, warm, fluctuant. no clubbing, no cyanosis, Neuro: AAO x 3. Normal speech - Constitutional Vitals: Temp Pulse Resp BP Pulse Ox 98.0 F 91 H 41 H 125/84 96 07/30/18 08:00 07/30/18 09:35 07/30/18 09:30 07/30/18 09:35 07/30/18 09:30 Results - Labs CBC & Chem 7: 07/29/18 13:59 07/30/18 10:26 Labs: Laboratory Last Values WBC 9.8 K/mm3 (4.5-11.0) 07/29/18 13:59 RBC 5.48 M/mm3 (3.65-5.03) H 07/29/18 13:59 Hgb 15.3 gm/dl (10.1-14.3) H 07/29/18 13:59 Hct 46.7 % (30.3-42.9) H 07/29/18 13:59 MCV 85 fl (79-97) 07/29/18 13:59 MCH 28 pg (28-32) 07/29/18 13:59 MCHC 33 % (30-34) 07/29/18 13:59 RDW 15.8 % (13.2-15.2) H 07/29/18 13:59 Plt Count 232 K/mm3 (140-440) 07/29/18 13:59 Lymph % (Auto) 19.7 % (13.4-35.0) 07/29/18 13:59 [place] % (Auto) 6.5 % (0.0-7.3) 07/29/18 13:59 Eos % (Auto) 1.5 % (0.0-4.3) 07/29/18 13:59 Baso % (Auto) 2.3 % (0.0-1.8) H 07/29/18 13:59 Lymph # 1.9 K/mm3 (1.2-5.4) 07/29/18 13:59 [place] # 0.6 K/mm3 (0.0-0.8) 07/29/18 13:59 Eos # 0.1 K/mm3 (0.0-0.4) 07/29/18 13:59 Baso # 0.2 K/mm3 (0.0-0.1) H 07/29/18 13:59 Seg Neutrophils % 70.0 % (40.0-70.0) 07/29/18 13:59 Seg Neutrophils # 6.9 K/mm3 (1.8-7.7) 07/29/18 13:59 VBG pH 7.273 (7.320-7.420) L 07/29/18 17:58 Sodium 142 mmol/L (137-145) 07/30/18 04:16 Potassium 3.6 mmol/L (3.6-5.0) 07/30/18 04:16 Chloride 106.4 mmol/L (98-107) 07/30/18 04:16 Carbon Dioxide 22 mmol/L (22-30) 07/30/18 04:16 17 mmol/L 07/30/18 04:16 BUN 4 mg/dL (7-17) L 07/30/18 04:16 0.4 mg/dL (0.7-1.2) L 07/30/18 04:16 Estimated GFR > 60 ml/min 07/30/18 04:16 10 % 07/30/18 04:16 Glucose 135 mg/dL (65-100) H 07/30/18 04:16 POC Glucose 117 (70-105) H 07/30/18 06:03 16.3 % (4-6) H 07/29/18 20:47 Lactic Acid 1.70 mmol/L (0.7-2.0) 07/29/18 15:57 Calcium 8.5 mg/dL (8.4-10.2) 07/30/18 04:16 Phosphorus 2.10 mg/dL (2.5-4.5) L 07/29/18 20:47 Magnesium 1.70 mg/dL (1.7-2.3) 07/29/18 20:47 0.30 mg/dL (0.1-1.2) 07/29/18 13:59 AST 9 units/L (5-40) 07/29/18 13:59 ALT 11 units/L (7-56) 07/29/18 13:59 83 units/L (35-129) 07/29/18 13:59 7.3 g/dL (6.3-8.2) 07/29/18 13:59 3.4 g/dL (3.9-5) L 07/29/18 13:59 0.9 % 07/29/18 13:59 Straw (Yellow) 07/29/18 14:40 Clear (Clear) 07/29/18 14:40 6.0 (5.0-7.0) 07/29/18 14:40 Ur Specific [place] 1.022 (1.003-1.030) 07/29/18 14:40 30 mg/dl mg/dL (Negative) 07/29/18 14:40 >=500 mg/dL (Negative) 07/29/18 14:40 80 mg/dL (Negative) 07/29/18 14:40 Lg (Negative) 07/29/18 14:40 Neg (Negative) 07/29/18 14:40 Neg (Negative) 07/29/18 14:40 < 2.0 mg/dL (<2.0) 07/29/18 14:40 Ur Leukocyte Esterase Neg (Negative) 07/29/18 14:40 2.0 /HPF (0.0-6.0) 07/29/18 14:40 18.0 /HPF (0.0-6.0) 07/29/18 14:40 U Epithel Cells (Auto) 2.0 /HPF (0-13.0) 07/29/18 14:40 1+ /HPF (Negative) 07/29/18 14:40 Active Medications - Current Medications Current Medications: Generic Name Dose Route Start Last Admin Trade Name Freq PRN Reason Stop Dose Admin Acetaminophen 650 mg 07/29/18 19:26 Tylenol PO Q4H PRN Pain MILD(1-3)/Fever >100.5/CHARLES Albuterol 2.5 mg 07/29/18 19:54 Proventil IH Q4HRT PRN Shortness Of Breath Benztropine Mesylate 1 mg 07/29/18 22:00 07/29/18 22:16 Cogentin PO 1 mg QHS REJI Administration Bupropion HCl 300 mg 07/30/18 10:00 07/30/18 09:36 Wellbutrin Xl PO 300 mg QAM REJI Administration Citalopram Hydrobromide 10 mg 07/30/18 10:00 07/30/18 09:36 Celexa PO 10 mg QDAY REJI Administration Clonazepam 2 mg 07/29/18 22:00 07/29/18 22:16 Klonopin PO 2 mg QHS REJI Administration Dextrose 50 ml 07/30/18 06:27 D50w (25gm) Syringe IV PRN PRN Hypoglycemia Docusate Sodium 100 mg 07/29/18 22:00 07/30/18 09:35 Colace PO 100 mg BID REJI Administration Enoxaparin Sodium 40 mg 07/29/18 20:00 07/30/18 09:37 Lovenox SUB-Q Not Given QDAY REJI Hydralazine HCl 10 mg 07/29/18 19:44 Apresoline IV Q4HR PRN Blood Pressure Vancomycin HCl 1,250 mg/ 275 mls @ 166.667 mls/hr 07/30/18 06:30 07/30/18 06:12 Sodium Chloride IV 166.667 mls/hr Q12H REJI Administration Ampicillin Sodium/Sulbactam Sodium 1.5 gm in 50 mls @ 100 mls/hr 07/29/18 22:00 07/30/18 05:08 Unasyn/Ns 1.5 Gm/50 Ml IV 100 mls/hr Q8HR REJI Administration Protocol Potassium Chloride/Dextrose/Sod Cl 20 meq in 1,000 mls @ 125 mls/hr 07/30/18 02:00 07/30/18 01:57 D5w/0.45% Nacl/Kcl 20 Meq IV 125 mls/hr DIRECT REJI Administration Insulin Glargine 10 units 07/30/18 22:00 Lantus SUB-Q QHS REJI Insulin Human Lispro 0 unit 07/30/18 12:00 Humalog SUB-Q Q6HR [facility] Protocol Lisinopril 10 mg 07/30/18 10:00 07/30/18 09:35 Zestril PO 10 mg QDAY REJI Administration Morphine Sulfate 2 mg 07/29/18 19:26 07/30/18 04:44 Morphine IV 07/31/18 23:59 2 mg Q4H PRN Administration Pain, Moderate (4-6) Ondansetron HCl 4 mg 07/29/18 19:26 Zofran IV Q8H PRN Nausea And Vomiting Oxycodone/Acetaminophen 1 tab 07/29/18 19:26 Percocet 5/325 PO Q6H PRN Pain, Moderate (4-6) Sodium Chloride 10 ml 07/29/18 22:00 07/30/18 09:35 Sodium Chloride Flush Syringe 10 Ml IV 10 ml BID REJI Administration Sodium Chloride 10 ml 07/29/18 19:26 Sodium Chloride Flush Syringe 10 Ml IV PRN PRN LINE FLUSH Ziprasidone 80 mg 07/29/18 22:00 07/30/18 09:36 Geodon PO 80 mg BID REJI Administration Nutrition/Malnutrition Assess - Dietary Evaluation Nutrition/Malnutrition Findings: Nutrition Notes Start: 07/30/18 09:32 Freq: Status: Active Protocol: Document 07/30/18 09:32 CP (Rec: 07/30/18 09:34 CP [id number]) Co-Sign 07/30/18 09:32 LP Nutrition Notes Need for Assessment generated from: MD Order,MST,Education Initial or Follow up Brief Note Current Diagnosis Diabetes,Hypertension Other Pertinent Diagnosis Cellulitis Current Diet NPO Weight change and time frame Pt screened for MST and consulted for diabetes education. Pt is non-compliant per MD note and stated that she had receiv ed education before. Noted no visible signs of malnutrition during time of visit. Nutrition Intervention Revisit per MD consult or patient Sign Off request:
[2018-07-30 11:06] LABS: BUN/Creatinine Ratio 7; Blood Urea Nitrogen 2 mg/dL (7-17); Calcium 8.3 mg/dL (8.4-10.2); Hemolysis Index 48
[2018-07-30] MEDS ORDERED: XYLOCAINE MPF 2% ONE (11:17)
[2018-07-30] MEDS ORDERED: DIPRIVAN 10 MG/ML IV ONE (11:17)
[2018-07-30] MEDS ORDERED: DILAUDID IV PRN ×2 (11:17→11:55)
--- NOTE | 2018-07-30 11:17 | Anesthesia Consultation ---
Anesthesia Consult and Med Hx - Airway Anesthetic Teeth Evaluation: Partials ROM Head & Neck: Adequate Mental/Hyoid Distance: Adequate Mallampati Class: Class II Intubation Access Assessment: Good - Pulmonary Exam CTA: Yes - Cardiac Exam Cardiac Exam: RRR - Pre-Operative Health Status ASA Pre-Surgery Classification: ASA3 Proposed Anesthetic Plan: General - Pulmonary Hx Smoking: Yes (pack a day) Hx Asthma: Yes - Cardiovascular System Hx Hypertension: Yes - Endocrine Hx Insulin Dependent Diabetes: Yes - Other Systems Hx Alcohol Use: No - Additional Comments Anesthesia Medical History Comments: HTN, DM, Asthma and pack a day smoker
--- NOTE | 2018-07-30 11:17 | Anesthesia Day of Surgery ---
Anesthesia Day of Surgery - Day of Surgery Patient Examined: Yes Patient H&P Reviewed: Yes Patient is NPO: Yes
--- NOTE | 2018-07-30 11:20 | Consultation ---
History of Present Illness - Reason for Consult Consult date: 07/30/18 DKA Requesting physician: DWIGHT MOHAN - History of Present Illness 48 y/o obese female admitted with DKA, most likely secondary to large pelvic abscess of several days duration. patient has known diabetes and has been noncompliant with her therapy. Now with infection she has tipped over to DKA. Was placed on INsulin drip which is now discontinued as her gap has closed. Abx therapy with unasyn and vanc. Evaluated by gen lucina and deemed appropriate for surgical I and D. Remainder is negative. Past History Past Medical History: diabetes, hypertension, other (asthma, depression) Past Surgical History: cholecystectomy, hysterectomy, Other (colon biopsy, kidney stones 2, cyst removal left upper extremity) Social history: , lives with family. denies: smoking Family history: no significant family history Medications and Allergies Allergies Allergy/AdvReac Type Severity Reaction Status Date / Time shellfish derived Allergy Swelling Verified 07/29/18 13:28 Sulfa (Sulfonamide Allergy Hives Verified 07/29/18 13:28 Antibiotics) Home Medications Medication Instructions Recorded Confirmed Last Taken Type Benztropine [Cogentin] 1 mg PO QHS 11/29/14 07/29/18 11/28/14 History Citalopram [celeXA] 20 mg PO QDAY 11/29/14 07/29/18 11/29/14 History Insulin Glargine [Lantus VIAL] 60 unit SUB-Q QHS 11/29/14 07/29/18 11/28/14 History Ziprasidone HCl [Geodon] 80 mg PO BID 11/29/14 07/29/18 11/29/14 History buPROPion XL [Wellbutrin Xl] 300 mg PO QAM 11/29/14 07/29/18 11/29/14 History clonazePAM [KlonoPIN] 2 mg PO QHS 11/29/14 07/29/18 11/28/14 History risperiDONE [RisperiDONE] 3 mg PO QHS 11/29/14 07/29/18 11/29/14 History ALBUTEROL Inhaler (OR & NICU) 1 puff IH Q4H PRN #1 inha 05/12/17 07/29/18 Unknown Rx [ProAir HFA Inhaler] Insulin Lispro [Humalog] 20 unit SQ TID 07/29/18 07/29/18 Unknown History Losartan [Cozaar] 50 mg PO QDAY 07/29/18 07/29/18 Unknown History Active Meds: Active Medications Acetaminophen (Tylenol) 650 mg PO Q4H PRN PRN Reason: Pain MILD(1-3)/Fever >100.5/CHARLES Albuterol (Proventil) 2.5 mg IH Q4HRT PRN PRN Reason: Shortness Of Breath Benztropine Mesylate (Cogentin) 1 mg PO QHS [facility] Last Admin: 07/29/18 22:16 Dose: 1 mg Documented by: Bupropion HCl (Wellbutrin Xl) 300 mg PO QAM [facility] Last Admin: 07/30/18 09:36 Dose: 300 mg Documented by: Citalopram Hydrobromide (Celexa) 10 mg PO QDAY [facility] Last Admin: 07/30/18 09:36 Dose: 10 mg Documented by: Clonazepam (Klonopin) 2 mg PO QHS [facility] Last Admin: 07/29/18 22:16 Dose: 2 mg Documented by: Dextrose (D50w (25gm) Syringe) 50 ml IV PRN PRN PRN Reason: Hypoglycemia Docusate Sodium (Colace) 100 mg PO BID [facility] Last Admin: 07/30/18 09:35 Dose: 100 mg Documented by: Enoxaparin Sodium (Lovenox) 40 mg SUB-Q QDAY [facility] Last Admin: 07/30/18 09:37 Dose: Not Given Documented by: Hydralazine HCl (Apresoline) 10 mg IV Q4HR PRN PRN Reason: Blood Pressure Vancomycin HCl 1,250 mg/ (Sodium Chloride) 275 mls @ 166.667 mls/hr IV Q12H [facility] Last Admin: 07/30/18 06:12 Dose: 166.667 mls/hr Documented by: Ampicillin Sodium/Sulbactam Sodium (Unasyn/Ns 1.5 Gm/50 Ml) 1.5 gm in 50 mls @ 100 mls/hr IV Q8HR [facility]; Protocol Last Admin: 07/30/18 05:08 Dose: 100 mls/hr Documented by: Lactated Ringer's (Lactated Ringers) 1,000 mls @ 75 mls/hr IV DIRECT [facility] Insulin Glargine (Lantus) 60 units SUB-Q QHS [facility] Insulin Human Lispro (Humalog) 0 unit SUB-Q ACHS [facility]; Protocol Insulin Human Lispro (Humalog) 20 unit SUB-Q AC [facility] Lisinopril (Zestril) 10 mg PO QDAY [facility] Last Admin: 07/30/18 09:35 Dose: 10 mg Documented by: Morphine Sulfate (Morphine) 2 mg IV Q4H PRN PRN Reason: Pain, Moderate (4-6) Stop: 07/31/18 23:59 Last Admin: 07/30/18 04:44 Dose: 2 mg Documented by: Nicotine (Habitrol) 21 mg TD DAILY [facility] Ondansetron HCl (Zofran) 4 mg IV Q8H PRN PRN Reason: Nausea And Vomiting Oxycodone/Acetaminophen (Percocet 5/325) 1 tab PO Q6H PRN PRN Reason: Pain, Moderate (4-6) Sodium Chloride (Sodium Chloride Flush Syringe 10 Ml) 10 ml IV BID [facility] Last Admin: 07/30/18 09:35 Dose: 10 ml Documented by: Sodium Chloride (Sodium Chloride Flush Syringe 10 Ml) 10 ml IV PRN PRN PRN Reason: LINE FLUSH Ziprasidone (Geodon) 80 mg PO BID [facility] Last Admin: 07/30/18 09:36 Dose: 80 mg Documented by: Review of Systems All systems: negative Exam - Constitutional Vitals: Temp Pulse Resp BP Pulse Ox 98.0 F 91 H 41 H 125/84 96 07/30/18 08:00 07/30/18 09:35 07/30/18 09:30 07/30/18 09:35 07/30/18 09:30 General appearance: Present: no acute distress, well-nourished, obese - EENT Eyes: Present: PERRL, EOM intact ENT: hearing intact - Neck Neck: Present: supple, normal ROM - Respiratory Respiratory: bilateral: CTA - Cardiovascular Rhythm: regular Heart Sounds: Present: S1 & S2 - Extremities Extremities: no ischemia, pulses intact - Abdominal General gastrointestinal: Present: soft, non-tender Results - Labs CBC & Chem 7: 07/29/18 13:59 07/30/18 10:26 Labs: Abnormal lab results 07/29/18 07/29/18 07/29/18 Range/Units 13:59 13:59 14:01 RBC 5.48 H (3.65-5.03) M/mm3 Hgb 15.3 H (10.1-14.3) gm/dl Hct 46.7 H (30.3-42.9) % RDW 15.8 H (13.2-15.2) % Baso % (Auto) 2.3 H (0.0-1.8) % Baso # 0.2 H (0.0-0.1) K/mm3 VBG pH (7.320-7.420) Sodium 135 L (137-145) mmol/L Potassium (3.6-5.0) mmol/L Chloride 92.7 L (98-107) mmol/L Carbon Dioxide 15 L (22-30) mmol/L BUN (7-17) mg/dL Creatinine (0.7-1.2) mg/dL Glucose 568 H* (65-100) mg/dL POC Glucose 478 H (70-105) Hemoglobin A1c (4-6) % Lactic Acid (0.7-2.0) mmol/L Calcium (8.4-10.2) mg/dL Phosphorus (2.5-4.5) mg/dL Albumin 3.4 L (3.9-5) g/dL 07/29/18 07/29/18 07/29/18 Range/Units 14:04 17:58 20:47 RBC (3.65-5.03) M/mm3 Hgb (10.1-14.3) gm/dl Hct (30.3-42.9) % RDW (13.2-15.2) % Baso % (Auto) (0.0-1.8) % Baso # (0.0-0.1) K/mm3 VBG pH 7.273 L (7.320-7.420) Sodium (137-145) mmol/L Potassium (3.6-5.0) mmol/L Chloride (98-107) mmol/L Carbon Dioxide (22-30) mmol/L BUN (7-17) mg/dL Creatinine (0.7-1.2) mg/dL Glucose (65-100) mg/dL POC Glucose (70-105) Hemoglobin A1c (4-6) % Lactic Acid 2.20 H* (0.7-2.0) mmol/L Calcium (8.4-10.2) mg/dL Phosphorus 2.10 L (2.5-4.5) mg/dL Albumin (3.9-5) g/dL 07/29/18 07/29/18 07/29/18 Range/Units 20:47 20:47 21:33 RBC (3.65-5.03) M/mm3 Hgb (10.1-14.3) gm/dl Hct (30.3-42.9) % RDW (13.2-15.2) % Baso % (Auto) (0.0-1.8) % Baso # (0.0-0.1) K/mm3 VBG pH (7.320-7.420) Sodium (137-145) mmol/L Potassium (3.6-5.0) mmol/L Chloride (98-107) mmol/L Carbon Dioxide 19 L (22-30) mmol/L BUN 6 L (7-17) mg/dL Creatinine 0.6 L (0.7-1.2) mg/dL Glucose 377 H (65-100) mg/dL POC Glucose 303 H (70-105) Hemoglobin A1c 16.3 H (4-6) % Lactic Acid (0.7-2.0) mmol/L Calcium (8.4-10.2) mg/dL Phosphorus (2.5-4.5) mg/dL Albumin (3.9-5) g/dL 07/29/18 07/29/18 07/30/18 Range/Units 22:41 23:04 00:03 RBC (3.65-5.03) M/mm3 Hgb (10.1-14.3) gm/dl Hct (30.3-42.9) % RDW (13.2-15.2) % Baso % (Auto) (0.0-1.8) % Baso # (0.0-0.1) K/mm3 VBG pH (7.320-7.420) Sodium (137-145) mmol/L Potassium (3.6-5.0) mmol/L Chloride (98-107) mmol/L Carbon Dioxide 18 L (22-30) mmol/L BUN 5 L (7-17) mg/dL Creatinine (0.7-1.2) mg/dL Glucose 421 H (65-100) mg/dL POC Glucose 354 H 219 H (70-105) Hemoglobin A1c (4-6) % Lactic Acid (0.7-2.0) mmol/L Calcium (8.4-10.2) mg/dL Phosphorus (2.5-4.5) mg/dL Albumin (3.9-5) g/dL 07/30/18 07/30/18 07/30/18 Range/Units 00:55 00:56 02:08 RBC (3.65-5.03) M/mm3 Hgb (10.1-14.3) gm/dl Hct (30.3-42.9) % RDW (13.2-15.2) % Baso % (Auto) (0.0-1.8) % Baso # (0.0-0.1) K/mm3 VBG pH (7.320-7.420) Sodium (137-145) mmol/L Potassium 3.4 L (3.6-5.0) mmol/L Chloride 107.3 H (98-107) mmol/L Carbon Dioxide (22-30) mmol/L BUN 4 L (7-17) mg/dL Creatinine 0.6 L (0.7-1.2) mg/dL Glucose 144 H (65-100) mg/dL POC Glucose 154 H 120 H (70-105) Hemoglobin A1c (4-6) % Lactic Acid (0.7-2.0) mmol/L Calcium (8.4-10.2) mg/dL Phosphorus (2.5-4.5) mg/dL Albumin (3.9-5) g/dL 07/30/18 07/30/18 07/30/18 Range/Units 03:01 04:16 04:17 RBC (3.65-5.03) M/mm3 Hgb (10.1-14.3) gm/dl Hct (30.3-42.9) % RDW (13.2-15.2) % Baso % (Auto) (0.0-1.8) % Baso # (0.0-0.1) K/mm3 VBG pH (7.320-7.420) Sodium (137-145) mmol/L Potassium (3.6-5.0) mmol/L Chloride (98-107) mmol/L Carbon Dioxide (22-30) mmol/L BUN 4 L (7-17) mg/dL Creatinine 0.4 L (0.7-1.2) mg/dL Glucose 135 H (65-100) mg/dL POC Glucose 133 H 135 H (70-105) Hemoglobin A1c (4-6) % Lactic Acid (0.7-2.0) mmol/L Calcium (8.4-10.2) mg/dL Phosphorus (2.5-4.5) mg/dL Albumin (3.9-5) g/dL 07/30/18 07/30/18 07/30/18 Range/Units 05:09 06:03 10:26 RBC (3.65-5.03) M/mm3 Hgb (10.1-14.3) gm/dl Hct (30.3-42.9) % RDW (13.2-15.2) % Baso % (Auto) (0.0-1.8) % Baso # (0.0-0.1) K/mm3 VBG pH (7.320-7.420) Sodium 136 L (137-145) mmol/L Potassium (3.6-5.0) mmol/L Chloride (98-107) mmol/L Carbon Dioxide 19 L (22-30) mmol/L BUN 2 L (7-17) mg/dL Creatinine 0.3 L (0.7-1.2) mg/dL Glucose 261 H (65-100) mg/dL POC Glucose 140 H 117 H (70-105) Hemoglobin A1c (4-6) % Lactic Acid (0.7-2.0) mmol/L Calcium 8.3 L (8.4-10.2) mg/dL Phosphorus (2.5-4.5) mg/dL Albumin (3.9-5) g/dL Assessment and Plan 48 y/o female with DKA thought secondary to noncompliance and worsened by pelvic abscess 1. Restart Home regimen for diabetes now that anion gap is closed 2. To the OR for debridement/ I and D 3. Hopeful to feed patient post-op 4. Stable for floor as long as no post-op issues or needs.
[2018-07-30] MEDS ORDERED: DILAUDID ONE (11:51)
[2018-07-30] MEDS ORDERED: ZOFRAN IV PRN (11:55)
[2018-07-30] MEDS ORDERED: NACL 0.9% IR ONE (12:08)
--- NOTE | 2018-07-30 12:18 | Post Operative Note ---
Date of procedure: 07/30/18 (dictation:[id number]) Pre-op diagnosis: Right thigh abscess Post-op diagnosis: same Findings: long abscess cavity on inside of thigh without extension into other areas Procedure: I&D of right thigh abscess IVF 350cc EBL<20cc Anesthesia: GETA Surgeon: WEN THEODORE Estimated blood loss: minimal Pathology: list (culture swabs) Specimen disposition: to lab Condition: stable Disposition: PACU
[2018-07-30] MEDS ORDERED: ZOFRAN ONE (12:19)
[2018-07-30] MEDS ORDERED: NACL 0.9% 1000 ML 1,000 ML ONE (12:40)
--- NOTE | 2018-07-30 13:52 | Operative Report ---
PREOPERATIVE DIAGNOSIS: Right thigh abscess. POSTOPERATIVE DIAGNOSIS: Right thigh abscess. PROCEDURE: Open Incision and drainage of right thigh abscess. ATTENDING PHYSICIAN: Aileen Owens MD. ANESTHESIA: General. ESTIMATED BLOOD LOSS: Minimal. FLUIDS: 350 mL. FINDINGS: Long abscess cavity in the subcutaneous tissue tracked on the medial aspect of the right thigh. There was no extension into the rest of the thigh or pelvic area. SPECIMENS: Culture swabs. DRAINS: Milroy drain 1 inch. COMPLICATIONS: None. DISPOSITION: Stable, transferred to Recovery Room. INDICATIONS: This is a 48-year-old female who presented with a 3-day history of progressively worsening swelling and pain in the right thigh. She developed a spontaneous drainage of purulent material. She presented to the Emergency Room for evaluation. She was found to have a markedly elevated blood sugar and admitted for management of the infection and control of her blood sugars. The patient was assessed to be need for I and D in the operating room. Procedure, risks and benefits were explained to the patient. Risks included but were not limited to infection, bleeding, pain, injury to surrounding structures, possible need for further procedures in the future. The patient understood and consented. OPERATIVE NOTE: The patient was brought to the operating room and placed on the table in supine position. After adequate general anesthesia was established, the patient was placed in the lithotomy position. Sterile prep and drape was performed. SCDs were in place. Antibiotics had already been given and she was on scheduled antibiotics. Timeout was called. I began by assessing the overall indurated area that was restricted to the right side. I do not see any extension into the perineal region. The buttock area itself appeared relatively normal on the right and left. There was a 1 cm spontaneous drainage point on in the inferior aspect as we are looking at the wound in the lithotomy position. I inserted a clamp to assess the cavity. It was a tract that went up anteriorly on the medial aspect of the thigh. I made an opening sharply at the very top about 1.5 cm and then probed with the instrument and my fingers to see if there was extension of this tract in any direction. The cavity was in the subcutaneous tissue only. I did not find any obvious extension; therefore, I felt that this was a long narrow tract that we are dealing with. I thoroughly irrigated out the area. I elected not to open up the entire wound. Because of its location, I felt it would be difficult to keep dressings in place, which would lead to poor wound care. The tissue itself as I could see from both openings appeared to be relatively healthy. I saw no evidence of any necrotic tissue in the wound, so I elected to leave a Milroy drain in that area to allow for drainage of any residual bacteria. We will see how she progresses with this if need be, we can always bring her back to do a complete opening, but this may be the easiest thing for her to manage, especially at home and still allow drainage of the infection. We packed the wound with Surgicel to address any oozing that may occur. Skin was cleaned and dried. ABDs and mesh underwear were placed. The patient tolerated the procedure well. There were no complications. All counts were correct at the end of the case. I spoke with the and daughter at the end of the case. JOB# [id number] [facility] [place]
--- NOTE | 2018-07-30 16:41 | Post Anesthesia Evaluation ---
- Post Anesthesia Evaluation Patient Participated: Yes Airway Patent: Yes Stable Respiratory Function: Yes Nausea/Vomiting: No Temp > 96.8F: Yes Pain Manageable: Yes Adequeate Hydration: Yes Anesthesia Complications: No
--- NOTE | 2018-07-30 16:48 | Consultation ---
History of Present Illness - Reason for Consult Consult date: 07/30/18 right groin abscess Requesting physician: VAL TIRADO - History of Present Illness 48 y/o female with history of uncontrolled diabetes, noncompliant, asthma, hypertension and depression admitted on 07/29/2018 due to a-week history of right groin tenderness and edema which progressively grew from a small bump. She noted spontaneous rupture of the bump with purulent discharge 2 days before admission. Denies fever, chills, nausea, vomiting , diarrhea. She had a similar axillary abscess years ago. Denies MRSA infections. In the ED, temp 98.3, HR 128, WBC 9.8, glucose 568, lactate 2.2. Blood culture 07/29/2018 no growth today. Patient was taken to the OR for I+D on 07/30/2018 found to have a long abscess cavity on inside of thigh without extension into other areas. Review of Systems: General: no fever, chills, nightsweats, unintentional weight change, or change in appetite Cutaneous: no rash, pruritus Head: no headaches or injury Eyes: no changes in vision, eye pain, double vision Ears: no ear pain, ear discharge, ringing or hearing loss Nose: no nose bleeding, stuffiness Mouth & throat: no bleeding gums, no horseness, no dental problems, or swollen glands Neck: no pain, node enlargement/lumps, tyroid enlargement or tenderness Respiratory: no cough, wheezing, sputum, hemoptysis, pleuritic chest pain Cardiovascular: no chest pain, leg edema, cyanosis, CHEN, orthopnea Musculoskeletal: +right groin tenderness and edema Gastrointestinal: no nausea, vomiting, hematemesis, diarrhea, constipation, melena, bright red blood in stools, fecal incontinence, jaundice Genitourinary/Reproductive: no frequent urination, dysuria, hematuria, incontinence Neurogical: no seizures, no headaches, no weakness, no paresthesias, no loss of speech or vision; no memory loss, no vertigo, no tremors, no numbness Psychiatric: stable mood; no excessive anxiety, sadness or moodiness Past History Past Medical History: diabetes, hypertension, other (asthma, depression) Past Surgical History: cholecystectomy, hysterectomy, Other (colon biopsy, kidney stones 2, cyst removal left upper extremity) Social history: , lives with family. denies: smoking Family history: no significant family history Medications and Allergies Allergies Allergy/AdvReac Type Severity Reaction Status Date / Time shellfish derived Allergy Swelling Verified 07/29/18 13:28 Sulfa (Sulfonamide Allergy Hives Verified 07/29/18 13:28 Antibiotics) Home Medications Medication Instructions Recorded Confirmed Last Taken Type Benztropine [Cogentin] 1 mg PO QHS 11/29/14 07/29/18 11/28/14 History Citalopram [celeXA] 20 mg PO QDAY 11/29/14 07/29/18 11/29/14 History Insulin Glargine [Lantus VIAL] 60 unit SUB-Q QHS 11/29/14 07/29/18 11/28/14 Hist ory Ziprasidone HCl [Geodon] 80 mg PO BID 11/29/14 07/29/18 11/29/14 History buPROPion XL [Wellbutrin Xl] 300 mg PO QAM 11/29/14 07/29/18 11/29/14 History clonazePAM [KlonoPIN] 2 mg PO QHS 11/29/14 07/29/18 11/28/14 History risperiDONE [RisperiDONE] 3 mg PO QHS 11/29/14 07/29/18 11/29/14 History ALBUTEROL Inhaler (OR & NICU) 1 puff IH Q4H PRN #1 inha 05/12/17 07/29/18 Unknown Rx [ProAir HFA Inhaler] Insulin Lispro [Humalog] 20 unit SQ TID 07/29/18 07/29/18 Unknown History Losartan [Cozaar] 50 mg PO QDAY 07/29/18 07/29/18 Unknown History Active Meds: Active Medications Acetaminophen (Tylenol) 650 mg PO Q4H PRN PRN Reason: Pain MILD(1-3)/Fever >100.5/CHARLES Albuterol (Proventil) 2.5 mg IH Q4HRT PRN PRN Reason: Shortness Of Breath Benztropine Mesylate (Cogentin) 1 mg PO QHS [facility] Last Admin: 07/29/18 22:16 Dose: 1 mg Documented by: Bupropion HCl ([facility] Xl) [facility] [place] Last Admin: 07/30/18 09:36 Dose: 300 mg Documented by: Citalopram Hydrobromide (Celexa) 10 mg PO QDAY [facility] Last Admin: 07/30/18 09:36 Dose: 10 mg Documented by: Clonazepam (Klonopin) 2 mg PO QHS [facility] Last Admin: 07/29/18 22:16 Dose: 2 mg Documented by: Dextrose (D50w (25gm) Syringe) 50 ml IV PRN PRN PRN Reason: Hypoglycemia Docusate Sodium (Colace) 100 mg PO BID [facility] Last Admin: 07/30/18 09:35 Dose: 100 mg Documented by: Enoxaparin Sodium (Lovenox) 40 mg SUB-Q QDAY [facility] Last Admin: 07/30/18 09:37 Dose: Not Given Documented by: Hydralazine HCl (Apresoline) 10 mg IV Q4HR PRN PRN Reason: Blood Pressure Hydromorphone HCl (Dilaudid) 0.5 mg IV Q10MIN PRN PRN Reason: Pain , Severe (7-10) Stop: 07/30/18 23:59 Hydromorphone HCl (Dilaudid) 0.5 mg IV Q10MIN PRN PRN Reason: Pain , Severe (7-10) Stop: 07/30/18 23:59 Vancomycin HCl 1,250 mg/ (Sodium Chloride) 275 mls @ 166.667 mls/hr IV Q12H [facility] Last Admin: 07/30/18 06:12 Dose: 166.667 mls/hr Documented by: Ampicillin Sodium/Sulbactam Sodium (Unasyn/Ns 1.5 Gm/50 Ml) 1.5 gm in 50 mls @ 100 mls/hr IV Q8HR [facility]; Protocol Last Admin: 07/30/18 05:08 Dose: 100 mls/hr Documented by: Lactated Ringer's (Lactated Ringers) 1,000 mls @ 75 mls/hr IV DIRECT [facility] Stop: 07/30/18 23:59 Insulin Glargine (Lantus) 60 units SUB-Q QHS [facility] Insulin Human Lispro (Humalog) 0 unit SUB-Q [facility]; Protocol Insulin Human Lispro (Humalog) 20 unit SUB-Q [facility] Lisinopril (Zestril) 10 mg PO QDAY [facility] Last Admin: 07/30/18 09:35 Dose: 10 mg Documented by: Morphine Sulfate (Morphine) 2 mg IV Q4H PRN PRN Reason: Pain, Moderate (4-6) Stop: 07/31/18 23:59 Last Admin: 07/30/18 04:44 Dose: 2 mg Documented by: Nicotine (Habitrol) 21 mg TD DAILY [facility] Ondansetron HCl (Zofran) 4 mg IV Q8H PRN PRN Reason: Nausea And Vomiting Ondansetron HCl (Zofran) 4 mg IV ONCE PRN PRN Reason: Nausea And Vomiting Oxycodone/Acetaminophen (Percocet 5/325) 1 tab PO Q6H PRN PRN Reason: Pain, Moderate (4-6) Sodium Chloride (Sodium Chloride Flush Syringe 10 Ml) 10 ml IV BID [facility] Last Admin: 07/30/18 09:35 Dose: 10 ml Documented by: Sodium Chloride (Sodium Chloride Flush Syringe 10 Ml) 10 ml IV PRN PRN PRN Reason: LINE FLUSH Ziprasidone (Geodon) 80 mg PO BID [facility] Last Admin: 07/30/18 09:36 Dose: 80 mg Documented by: Physical Examination - Physical Exam Narrative exam: General appearance: Alert in NAD, conversant Eyes: anicteric sclerae, moist conjunctivae; no lid-lag; PERRLA HENT: Atraumatic; oropharynx clear with moist mucous membranes and no mucosal ulcerations/no oral thrush; normal hard and soft palate. Normal external ears. Neck: Trachea midline; supple, no thyromegaly or lymphadenopathy Lungs: CTA, with normal respiratory effort and no intercostal retractions CV: RRR, no murmurs Abdomen: Soft, non-tender; no masses or hepatosplenomegaly Extremities: right groin and inner thigh wound with surgical dressings Skin: Normal temperature, turgor and texture; no rash, ulcers or subcutaneous nodules Psych: Appropriate affect, alert and oriented to person, place and time. Neuro: alert and oriented x 3. Moving all extermities - Constitutional Vitals: Vital Signs Temp Pulse Resp BP Pulse Ox 97.8 F 93 H 18 114/68 95 07/30/18 15:15 07/30/18 15:15 07/30/18 15:15 07/30/18 15:15 07/30/18 15:15 Temperature -Last 24 Hours Temperature 97.8 F Temperature 97.5 F Temperature 98.2 F Temperature 99.6 F Temperature 99.6 F Temperature 98.0 F Temperature 98.0 F Temperature 98.0 F Temperature 97.6 F Results - Labs CBC & Chem 7: 07/29/18 13:59 07/30/18 10:26 Labs: Abnormal lab results 07/29/18 07/29/18 07/29/18 Range/Units 14:01 17:58 20:47 VBG pH 7.273 L (7.320-7.420) Sodium (137-145) mmol/L Potassium (3.6-5.0) mmol/L Chloride (98-107) mmol/L Carbon Dioxide (22-30) mmol/L BUN (7-17) mg/dL Creatinine (0.7-1.2) mg/dL Glucose (65-100) mg/dL POC Glucose 478 H (70-105) Hemoglobin A1c (4-6) % Calcium (8.4-10.2) mg/dL Phosphorus 2.10 L (2.5-4.5) mg/dL 07/29/18 07/29/18 07/29/18 Range/Units 20:47 20:47 21:33 VBG pH (7.320-7.420) Sodium (137-145) mmol/L Potassium (3.6-5.0) mmol/L Chloride (98-107) mmol/L Carbon Dioxide 19 L (22-30) mmol/L BUN 6 L (7-17) mg/dL Creatinine 0.6 L (0.7-1.2) mg/dL Glucose 377 H (65-100) mg/dL POC Glucose 303 H (70-105) Hemoglobin A1c 16.3 H (4-6) % Calcium (8.4-10.2) mg/dL Phosphorus (2.5-4.5) mg/dL 07/29/18 07/29/18 07/30/18 Range/Units 22:41 23:04 00:03 VBG pH (7.320-7.420) Sodium (137-145) mmol/L Potassium (3.6-5.0) mmol/L Chloride (98-107) mmol/L Carbon Dioxide 18 L (22-30) mmol/L BUN 5 L (7-17) mg/dL Creatinine (0.7-1.2) mg/dL Glucose 421 H (65-100) mg/dL POC Glucose 354 H 219 H (70-105) Hemoglobin A1c (4-6) % Calcium (8.4-10.2) mg/dL Phosphorus (2.5-4.5) mg/dL 07/30/18 07/30/18 07/30/18 Range/Units 00:55 00:56 02:08 VBG pH (7.320-7.420) Sodium (137-145) mmol/L Potassium 3.4 L (3.6-5.0) mmol/L Chloride 107.3 H (98-107) mmol/L Carbon Dioxide (22-30) mmol/L BUN 4 L (7-17) mg/dL Creatinine 0.6 L (0.7-1.2) mg/dL Glucose 144 H (65-100) mg/dL POC Glucose 154 H 120 H (70-105) Hemoglobin A1c (4-6) % Calcium (8.4-10.2) mg/dL Phosphorus (2.5-4.5) mg/dL 07/30/18 07/30/18 07/30/18 Range/Units 03:01 04:16 04:17 VBG pH (7.320-7.420) Sodium (137-145) mmol/L Potassium (3.6-5.0) mmol/L Chloride (98-107) mmol/L Carbon Dioxide (22-30) mmol/L BUN 4 L (7-17) mg/dL Creatinine 0.4 L (0.7-1.2) mg/dL Glucose 135 H (65-100) mg/dL POC Glucose 133 H 135 H (70-105) Hemoglobin A1c (4-6) % Calcium (8.4-10.2) mg/dL Phosphorus (2.5-4.5) mg/dL 07/30/18 07/30/18 07/30/18 Range/Units 05:09 06:03 10:26 VBG pH (7.320-7.420) Sodium 136 L (137-145) mmol/L Potassium (3.6-5.0) mmol/L Chloride (98-107) mmol/L Carbon Dioxide 19 L (22-30) mmol/L BUN 2 L (7-17) mg/dL Creatinine 0.3 L (0.7-1.2) mg/dL Glucose 261 H (65-100) mg/dL POC Glucose 140 H 117 H (70-105) Hemoglobin A1c (4-6) % Calcium 8.3 L (8.4-10.2) mg/dL Phosphorus (2.5-4.5) mg/dL 07/30/18 07/30/18 Range/Units 12:40 16:02 VBG pH (7.320-7.420) Sodium (137-145) mmol/L Potassium (3.6-5.0) mmol/L Chloride (98-107) mmol/L Carbon Dioxide (22-30) mmol/L BUN (7-17) mg/dL Creatinine (0.7-1.2) mg/dL Glucose (65-100) mg/dL POC Glucose 221 H 299 H (70-105) Hemoglobin A1c (4-6) % Calcium (8.4-10.2) mg/dL Phosphorus (2.5-4.5) mg/dL Assessment and Plan Cultures: Blood culture 07/29/2018 no growth today. Assessment: 48 y/o female with history of uncontrolled diabetes, noncompliant, asthma, hypertension and depression admitted on 07/29/2018 due to a-week history of right groin tenderness and edema which progressively grew from a small bump: 1) Sepsis: Present on admission, manifested by tachycardia, increased lactate. Etiology most likely right groin/inner thigh abscess. 2) Right groin/inner thigh abscess: likley GNR v/s Staph v/s polimicrobial. S/p OR I+D on 07/30/2018 found to have a long abscess cavity on inside of thigh without extension into other areas. 3) DM: uncontrolled, glucose 568 Recommendations: - follow-up blood cultures, OR wound culture - start cefepime and flagyl - stop unasyn - continue vancomycin - MRSA PCR - wound care Will follow. Savannah Maurer MD Infectious Diseases Pharmacy Technician Per Diem [facility] M [phone] O [phone]
[2018-07-30] MEDS: FLAGYL 500 MG/100 ML 500 MG/100 ML BAG IV SCH ×2 (17:43→21:44)
[2018-07-30] MEDS: HumaLOG SUB-Q SCH ×3 (17:44→22:27)
[2018-07-30 18:05] LABS: BUN/Creatinine Ratio 5; Blood Urea Nitrogen 3 mg/dL (7-17); Calcium 8.3 mg/dL (8.4-10.2); Hemolysis Index 47
[2018-07-30] MEDS: HABITROL TD SCH (18:36)
[2018-07-30] MEDS: MAXIPIME/NS 2 GM/100 ML 2 GM/100 ML BAG IV SCH ×2 (18:52→21:45)
[2018-07-30] MEDS: COGENTIN PO SCH (21:47)
[2018-07-30] MEDS: LANTUS SUB-Q SCH (21:53)
[2018-07-30] MEDS ORDERED: LANTUS SUB-Q SCH (22:00)
[2018-07-31] MEDS: HumaLOG SUB-Q SCH ×8 (04:45→22:33)
[2018-07-31] MEDS: FLAGYL 500 MG/100 ML 500 MG/100 ML BAG IV SCH ×3 (05:37→21:49)
[2018-07-31] MEDS: MAXIPIME/NS 2 GM/100 ML 2 GM/100 ML BAG IV SCH ×3 (05:40→21:50)
[2018-07-31] MEDS: VANCOMYCIN 1,250 MG in NACL 0.9% 250ML 250 ML IV SCH ×2 (05:40→18:37)
[2018-07-31] MEDS: MORPHINE IV PRN ×2 (06:20→12:46)
--- NOTE | 2018-07-31 08:19 | Progress Note ---
Assessment and Plan Cultures: Blood culture 07/29/2018 no growth to date Surgical culture 07/30/18: in progress Assessment: 48 y/o female with history of uncontrolled diabetes, noncompliant, asthma, hypertension and depression admitted on 07/29/2018 due to a-week history of right groin tenderness and edema which progressively grew from a small bump: 1) Sepsis: Resolved. Present on admission, manifested by tachycardia, increased lactate. Etiology most likely right groin/inner thigh abscess. 2) Right groin/inner thigh abscess: likley GNR v/s Staph v/s polimicrobial. S/p OR I+D on 07/30/2018 found to have a long abscess cavity on inside of thigh without extension into other areas. 3) DM: uncontrolled, glucose 568 Recommendations: - follow-up blood cultures, OR wound culture - continue cefepime and flagyl, D2 - continue vancomycin, D2 - follow-up MRSA PCR - wound care consult -monitor over the weekend, to be determined on Friday if going home on PO or IV antibiotics. Dr. Ragsdale will be personnel research psychologist this weekend [phone], please call for questions. Niyah Campo NP [facility] M: [phone] O:[phone] Subjective Date of service: 07/31/18 Interval history: Patient seen and examined. Complains of continued right groin pain and swelling. Objective - Exam Narrative Exam: General appearance: Alert in NAD, conversant. Right groin pain 6/10. Eyes: anicteric sclerae, moist conjunctivae; no lid-lag; PERRLA HENT: Atraumatic; oropharynx clear with moist mucous membranes and no mucosal ulcerations/no oral thrush; normal hard and soft palate. Normal external ears. Neck: Trachea midline; supple, no thyromegaly or lymphadenopathy Lungs: CTA, with normal respiratory effort and no intercostal retractions CV: RRR, no murmurs Abdomen: Soft, non-tender; no masses or hepatosplenomegaly Extremities: right groin and inner thigh wound with surgical dressings Skin: Normal temperature, turgor and texture; no rash, ulcers or subcutaneous nodules Psych: Appropriate affect, alert and oriented to person, place and time. Neuro: alert and oriented x 3. Moving all extremities - Constitutional Vitals: Vital Signs Temp Pulse Resp BP Pulse Ox 99.4 F 91 H 18 104/65 95 07/31/18 05:10 07/31/18 05:10 07/31/18 06:50 07/31/18 05:10 07/31/18 05:10 Temperature -Last 24 Hours Temperature 99.4 F Temperature 98.9 F Temperature 97.8 F Temperature 97.5 F Temperature 98.3 F Temperature 98.2 F Temperature 99.6 F Temperature 99.6 F - Labs CBC & Chem 7: 07/31/18 08:30 07/31/18 08:30 Labs: Abnormal lab results 07/30/18 07/30/18 07/30/18 Range/Units 10:26 12:40 13:20 Sodium 136 L (137-145) mmol/L Potassium (3.6-5.0) mmol/L Carbon Dioxide 19 L (22-30) mmol/L BUN 2 L (7-17) mg/dL Creatinine 0.3 L (0.7-1.2) mg/dL Glucose 261 H (65-100) mg/dL POC Glucose 221 H 221 H (70-105) Calcium 8.3 L (8.4-10.2) mg/dL C-Reactive Protein (0.00-1.30) mg/dL 07/30/18 07/30/18 07/30/18 Range/Units 16:02 17:35 17:35 Sodium (137-145) mmol/L Potassium 5.5 H D (3.6-5.0) mmol/L Carbon Dioxide 19 L (22-30) mmol/L BUN 3 L (7-17) mg/dL Creatinine 0.6 L D (0.7-1.2) mg/dL Glucose 439 H (65-100) mg/dL POC Glucose 299 H (70-105) Calcium 8.3 L (8.4-10.2) mg/dL C-Reactive Protein 25.40 H (0.00-1.30) mg/dL 07/30/18 Range/Units 21:08 Sodium (137-145) mmol/L Potassium (3.6-5.0) mmol/L Carbon Dioxide (22-30) mmol/L BUN (7-17) mg/dL Creatinine (0.7-1.2) mg/dL Glucose (65-100) mg/dL POC Glucose 327 H (70-105) Calcium (8.4-10.2) mg/dL C-Reactive Protein (0.00-1.30) mg/dL
[2018-07-31 09:01] LABS: Basophils # (Auto) 0.1 K/mm3 (0.0-0.1); Basophils % (Auto) 0.9 % (0.0-1.8); Eosinophils # (Auto) 0.1 K/mm3 (0.0-0.4); Eosinophils % (Auto) 1.5 % (0.0-4.3); Hematocrit 39.9 % (30.3-42.9); Hemoglobin 13.5 gm/dl (10.1-14.3); Lymphocytes # (Auto) 1.7 K/mm3 (1.2-5.4); Lymphocytes % (Auto) 22.2 % (13.4-35.0); Mean Corpuscular HGB Conc 34 % (30-34); Mean Corpuscular Volume 83 fl (79-97); Monocytes # (Auto) 0.8 K/mm3 (0.0-0.8); Monocytes % (Auto) 10.1 % (0.0-7.3); Platelet Count 219 K/mm3 (140-440); Red Blood Count 4.82 M/mm3 (3.65-5.03); Red Cell Distribution Width 15.4 % (13.2-15.2)
[2018-07-31 09:11] LABS: BUN/Creatinine Ratio 4; Blood Urea Nitrogen 2 mg/dL (7-17); Calcium 8.5 mg/dL (8.4-10.2); Hemolysis Index 0
[2018-07-31] MEDS: HABITROL TD SCH (09:35)
[2018-07-31] MEDS: COLACE PO SCH ×2 (09:35→21:53)
[2018-07-31] MEDS: WELLBUTRIN XL PO SCH (09:35)
[2018-07-31] MEDS: LOVENOX SUB-Q SCH (09:35)
[2018-07-31] MEDS: SODIUM CHLORIDE FLUSH SYRINGE 10 ML IV SCH ×2 (09:36→21:53)
[2018-07-31] MEDS: ZESTRIL PO SCH (09:36)
[2018-07-31] MEDS: celeXA PO SCH (09:37)
[2018-07-31] MEDS: GEODON PO SCH ×2 (12:47→21:52)
--- NOTE | 2018-07-31 15:11 | Event Note ---
Date: 07/31/18 Physician Attestation: I have personally seen and examined patient. I personally discussed and directed assessment and management with DIET TECH Jahaira. Monitor during the weekend, if clinically better, induration improvement and susceptible isolates, will consider PO antibiotics for toal 14 days. If not will consider IV antibiotics; continue wound care. Savannah Maurer MD Infectious Diseases Health Screener [facility] M [phone] O [phone]
--- NOTE | 2018-07-31 15:14 | Progress Note ---
Assessment and Plan 48 y/o female with DKA thought secondary to noncompliance and worsened by pelvic abscess 1. Stable pulm status, will sign off. Call if questions or concerns. Subjective Date of service: 07/31/18 Interval history: POD 1 from I/D. Anion gap closed and no pulm issues. Objective - Constitutional Vitals: Vital Signs - 12hr 07/31/18 07/31/18 07/31/18 05:10 06:50 12:01 Temperature 99.4 F 99.0 F Pulse Rate 91 H 92 H Respiratory 32 H 18 16 Rate Blood Pressure 104/65 123/70 O2 Sat by Pulse 95 100 Oximetry - Labs CBC & Chem 7: 07/31/18 08:30 07/31/18 08:30 Labs: Abnormal lab results 07/30/18 07/30/18 07/30/18 Range/Units 13:20 16:02 17:35 RDW (13.2-15.2) % [place] % (Auto) (0.0-7.3) % Potassium 5.5 H D (3.6-5.0) mmol/L Carbon Dioxide 19 L (22-30) mmol/L BUN 3 L (7-17) mg/dL Creatinine 0.6 L D (0.7-1.2) mg/dL Glucose 439 H (65-100) mg/dL POC Glucose 221 H 299 H (70-105) Calcium 8.3 L (8.4-10.2) mg/dL C-Reactive Protein (0.00-1.30) mg/dL 07/30/18 07/30/18 07/31/18 Range/Units 17:35 21:08 08:30 RDW (13.2-15.2) % [place] % (Auto) (0.0-7.3) % Potassium 3.3 L D (3.6-5.0) mmol/L Carbon Dioxide (22-30) mmol/L BUN 2 L (7-17) mg/dL Creatinine 0.5 L (0.7-1.2) mg/dL Glucose 167 H (65-100) mg/dL POC Glucose 327 H (70-105) Calcium (8.4-10.2) mg/dL C-Reactive Protein 25.40 H (0.00-1.30) mg/dL 07/31/18 07/31/18 Range/Units 08:30 12:11 RDW 15.4 H (13.2-15.2) % [place] % (Auto) 10.1 H (0.0-7.3) % Potassium (3.6-5.0) mmol/L Carbon Dioxide (22-30) mmol/L BUN (7-17) mg/dL Creatinine (0.7-1.2) mg/dL Glucose (65-100) mg/dL POC Glucose 127 H (70-105) Calcium (8.4-10.2) mg/dL C-Reactive Protein (0.00-1.30) mg/dL Medications & Allergies - Medications Allergies/Adverse Reactions: Allergies shellfish derived Allergy (Verified 07/29/18 13:28) Swelling Sulfa (Sulfonamide Antibiotics) Allergy (Verified 07/29/18 13:28) Hives Home Medications: Home Medications Medication Instructions Recorded Confirmed Last Taken Type Benztropine [Cogentin] 1 mg PO QHS 11/29/14 07/29/18 11/28/14 History Citalopram [celeXA] 20 mg PO QDAY 11/29/14 07/29/18 11/29/14 History Insulin Glargine [Lantus VIAL] 60 unit SUB-Q QHS 11/29/14 07/29/18 11/28/14 History Ziprasidone HCl [Geodon] 80 mg PO BID 11/29/14 07/29/18 11/29/14 History buPROPion XL [Wellbutrin Xl] 300 mg PO QAM 11/29/14 07/29/18 11/29/14 History clonazePAM [KlonoPIN] 2 mg PO QHS 11/29/14 07/29/18 11/28/14 History risperiDONE [RisperiDONE] 3 mg PO QHS 11/29/14 07/29/18 11/29/14 History ALBUTEROL Inhaler (OR & NICU) 1 puff IH Q4H PRN #1 inha 05/12/17 07/29/18 Unknown Rx [ProAir HFA Inhaler] Insulin Lispro [Humalog] 20 unit SQ TID 07/29/18 07/29/18 Unknown History Losartan [Cozaar] 50 mg PO QDAY 07/29/18 07/29/18 Unknown History Active Medications: Generic Name Dose Route Start Last Admin Trade Name Freq PRN Reason Stop Dose Admin Acetaminophen 650 mg 07/29/18 19:26 Tylenol PO Q4H PRN Pain MILD(1-3)/Fever >100.5/CHARLES Albuterol 2.5 mg 07/29/18 19:54 Proventil IH Q4HRT PRN Shortness Of Breath Benztropine Mesylate 1 mg 07/29/18 22:00 07/30/18 21:47 Cogentin PO 1 mg QHS REJI Administration Bupropion HCl 300 mg 07/30/18 10:00 07/31/18 09:35 Wellbutrin Xl PO 300 mg QAM REJI Administration Citalopram Hydrobromide 10 mg 07/30/18 10:00 07/31/18 09:37 Celexa PO 10 mg QDAY REJI Administration Clonazepam 2 mg 07/29/18 22:00 07/30/18 21:47 Klonopin PO 2 mg QHS REJI Administration Dextrose 50 ml 07/30/18 06:27 D50w (25gm) Syringe IV PRN PRN Hypoglycemia Docusate Sodium 100 mg 07/29/18 22:00 07/31/18 09:35 Colace PO 100 mg BID REJI Administration Enoxaparin Sodium 40 mg 07/29/18 20:00 07/31/18 09:35 Lovenox SUB-Q 40 mg QDAY RE[facility]I Administration Hydralazine HCl 10 mg 07/29/18 19:44 Apresoline IV Q4HR PRN Blood Pressure Vancomycin HCl 1,250 mg/ 275 mls @ 166.667 mls/hr 07/30/18 06:30 07/31/18 05:40 Sodium Chloride IV 166.667 mls/hr Q12H RE[facility]I Administration Cefepime HCl 2 gm in 100 mls @ 200 mls/hr 07/30/18 18:00 07/31/18 13:07 Maxipime/Ns 2 Gm/100 Ml IV 200 mls/hr Q8HR RE[facility]I Administration Protocol Metronidazole 500 mg in 100 mls @ 100 mls/hr 07/30/18 18:00 07/31/18 13:07 Flagyl 500 Mg/100 Ml IV 100 mls/hr Q8HR RE[facility]I Administration Protocol Sodium Chloride 1,000 mls @ 150 mls/hr 07/31/18 09:00 Nacl 0.9% 1000 Ml IV DIRECT RE[facility]I Insulin Glargine 60 units 07/30/18 22:00 07/30/18 21:53 Lantus SUB-Q 60 units QHS RE[facility]I Administration Insulin Human Lispro 0 unit 07/30/18 12:00 07/31/18 07:30 Humalog SUB-Q Not Given ACHS [facility] Protocol Insulin Human Lispro 20 unit 07/30/18 11:30 07/31/18 12:48 Humalog SUB-Q 20 unit AC RE[facility]I Administration Lisinopril 10 mg 07/30/18 10:00 07/31/18 09:36 Zestril PO 10 mg QDAY RE[facility]I Administration Morphine Sulfate 2 mg 07/29/18 19:26 07/31/18 12:46 Morphine IV 07/31/18 23:59 2 mg Q4H PRN Administration Pain, Moderate (4-6) Nicotine 21 mg 07/30/18 15:00 07/31/18 09:35 Habitrol TD 21 mg DAILY REJI Administration Ondansetron HCl 4 mg 07/29/18 19:26 Zofran IV Q8H PRN Nausea And Vomiting Ondansetron HCl 4 mg 07/30/18 11:55 Zofran IV ONCE PRN Nausea And Vomiting Oxycodone/Acetaminophen 1 tab 07/29/18 19:26 Percocet 5/325 PO Q6H PRN Pain, Moderate (4-6) Sodium Chloride 10 ml 07/29/18 22:00 07/31/18 09:36 Sodium Chloride Flush Syringe 10 Ml IV 10 ml BID REJI Administration Sodium Chloride 10 ml 07/29/18 19:26 07/31/18 05:40 Sodium Chloride Flush Syringe 10 Ml IV 10 ml PRN PRN Administration LINE FLUSH Ziprasidone 80 mg 07/29/18 22:00 07/31/18 12:47 Geodon PO 80 mg BID REJI Administration
--- NOTE | 2018-07-31 15:26 | Progress Note ---
Assessment and Plan Assessment and plan: DKA Was admitted to ICU, now transferred to Tele Blood glucose improved on Insulin drip Anion gap closed Off Insulin drip Resumed home lantus 60 Units qhs Resumed Humalog 20 Units qac Medical noncompliance. Patient states has not taken Insulin in 3 months Right thigh abscess Evaluated by Surg s/p I and D Hypokalemia Replace and recheck Obesity I counseled her on diet and exercise to lose weight Full code Stable to transfer to med/surg. History Interval history: right thigh abscess s/p I and D yesterday less pain right thigh Hospitalist Physical - Physical exam Narrative exam: en: Not in acute distress, lying in bed,obese HEENT: Normocephalic, atraumatic Neck: supple, no JVD Heart: S1 and S2 reg, no murmurs, rubs or gallop Lungs: Clear, no crackles Abd: soft, non tender, non distended, normal BS Ext: Upper right thigh tender, warm, fluctuant,. no clubbing, no cyanosis, Neuro: AAO x 3. Normal speech - Constitutional Vitals: Temp Pulse Resp BP Pulse Ox 99.0 F 92 H 16 123/70 100 07/31/18 12:01 07/31/18 12:01 07/31/18 12:01 07/31/18 12:01 07/31/18 12:01 General appearance: Present: no acute distress, well-nourished, obese Results - Labs CBC & Chem 7: 07/31/18 08:30 07/31/18 08:30 Labs: Laboratory Last Values WBC 7.9 K/mm3 (4.5-11.0) 07/31/18 08:30 RBC 4.82 M/mm3 (3.65-5.03) 07/31/18 08:30 Hgb 13.5 gm/dl (10.1-14.3) 07/31/18 08:30 Hct 39.9 % (30.3-42.9) D 07/31/18 08:30 MCV 83 fl (79-97) 07/31/18 08:30 MCH 28 pg (28-32) 07/31/18 08:30 MCHC 34 % (30-34) 07/31/18 08:30 RDW 15.4 % (13.2-15.2) H 07/31/18 08:30 Plt Count 219 K/mm3 (140-440) 07/31/18 08:30 Lymph % (Auto) 22.2 % (13.4-35.0) 07/31/18 08:30 [place] % (Auto) 10.1 % (0.0-7.3) H 07/31/18 08:30 Eos % (Auto) 1.5 % (0.0-4.3) 07/31/18 08:30 Baso % (Auto) 0.9 % (0.0-1.8) 07/31/18 08:30 Lymph # 1.7 K/mm3 (1.2-5.4) 07/31/18 08:30 [place] # 0.8 K/mm3 (0.0-0.8) 07/31/18 08:30 Eos # 0.1 K/mm3 (0.0-0.4) 07/31/18 08:30 Baso # 0.1 K/mm3 (0.0-0.1) 07/31/18 08:30 Seg Neutrophils % 65.3 % (40.0-70.0) 07/31/18 08:30 Seg Neutrophils # 5.1 K/mm3 (1.8-7.7) 07/31/18 08:30 VBG pH 7.273 (7.320-7.420) L 07/29/18 17:58 Sodium 140 mmol/L (137-145) 07/31/18 08:30 Potassium 3.3 mmol/L (3.6-5.0) L D 07/31/18 08:30 Chloride 104.5 mmol/L (98-107) 07/31/18 08:30 Carbon Dioxide 23 mmol/L (22-30) 07/31/18 08:30 16 mmol/L 07/31/18 08:30 BUN 2 mg/dL (7-17) L 07/31/18 08:30 0.5 mg/dL (0.7-1.2) L 07/31/18 08:30 Estimated GFR > 60 ml/min 07/31/18 08:30 4 % 07/31/18 08:30 Glucose 167 mg/dL (65-100) H 07/31/18 08:30 POC Glucose 127 (70-105) H 07/31/18 12:11 16.3 % (4-6) H 07/29/18 20:47 Lactic Acid 1.70 mmol/L (0.7-2.0) 07/29/18 15:57 Calcium 8.5 mg/dL (8.4-10.2) 07/31/18 08:30 Phosphorus 2.10 mg/dL (2.5-4.5) L 07/29/18 20:47 Magnesium 1.70 mg/dL (1.7-2.3) 07/29/18 20:47 0.30 mg/dL (0.1-1.2) 07/29/18 13:59 AST 9 units/L (5-40) 07/29/18 13:59 ALT 11 units/L (7-56) 07/29/18 13:59 83 units/L (35-129) 07/29/18 13:59 25.40 mg/dL (0.00-1.30) H 07/30/18 17:35 7.3 g/dL (6.3-8.2) 07/29/18 13:59 3.4 g/dL (3.9-5) L 07/29/18 13:59 0.9 % 07/29/18 13:59 Straw (Yellow) 07/29/18 14:40 Clear (Clear) 07/29/18 14:40 6.0 (5.0-7.0) 07/29/18 14:40 Ur Specific [place] 1.022 (1.003-1.030) 07/29/18 14:40 30 mg/dl mg/dL (Negative) 07/29/18 14:40 >=500 mg/dL (Negative) 07/29/18 14:40 80 mg/dL (Negative) 07/29/18 14:40 Lg (Negative) 07/29/18 14:40 Neg (Negative) 07/29/18 14:40 Neg (Negative) 07/29/18 14:40 < 2.0 mg/dL (<2.0) 07/29/18 14:40 Ur Leukocyte Esterase Neg (Negative) 07/29/18 14:40 2.0 /HPF (0.0-6.0) 07/29/18 14:40 18.0 /HPF (0.0-6.0) 07/29/18 14:40 U Epithel Cells (Auto) 2.0 /HPF (0-13.0) 07/29/18 14:40 1+ /HPF (Negative) 07/29/18 14:40 Active Medications - Current Medications Current Medications: Generic Name Dose Route Start Last Admin Trade Name Freq PRN Reason Stop Dose Admin Acetaminophen 650 mg 07/29/18 19:26 Tylenol PO Q4H PRN Pain MILD(1-3)/Fever >100.5/CHARLES Albuterol 2.5 mg 07/29/18 19:54 Proventil IH Q4HRT PRN Shortness Of Breath Benztropine Mesylate 1 mg 07/29/18 22:00 07/30/18 21:47 Cogentin PO 1 mg QHS REJI Administration Bupropion HCl 300 mg 07/30/18 10:00 07/31/18 09:35 Wellbutrin Xl PO 300 mg QAM REJI Administration Citalopram Hydrobromide 10 mg 07/30/18 10:00 07/31/18 09:37 Celexa PO 10 mg QDAY REJI Administration Clonazepam 2 mg 07/29/18 22:00 07/30/18 21:47 Klonopin PO 2 mg QHS REJI Administration Dextrose 50 ml 07/30/18 06:27 D50w (25gm) Syringe IV PRN PRN Hypoglycemia Docusate Sodium 100 mg 07/29/18 22:00 07/31/18 09:35 Colace PO 100 mg BID REJI Administration Enoxaparin Sodium 40 mg 07/29/18 20:00 07/31/18 09:35 Lovenox SUB-Q 40 mg QDAY REJI Administration Hydralazine HCl 10 mg 07/29/18 19:44 Apresoline IV Q4HR PRN Blood Pressure Vancomycin HCl 1,250 mg/ 275 mls @ 166.667 mls/hr 07/30/18 06:30 07/31/18 05:40 Sodium Chloride IV 166.667 mls/hr Q12H REJI Administration Cefepime HCl 2 gm in 100 mls @ 200 mls/hr 07/30/18 18:00 07/31/18 13:07 Maxipime/Ns 2 Gm/100 Ml IV 200 mls/hr Q8HR REJI Administration Protocol Metronidazole 500 mg in 100 mls @ 100 mls/hr 07/30/18 18:00 07/31/18 13:07 Flagyl 500 Mg/100 Ml IV 100 mls/hr Q8HR REJI Administration Protocol Sodium Chloride 1,000 mls @ 150 mls/hr 07/31/18 09:00 Nacl 0.9% 1000 Ml IV DIRECT REJI Insulin Glargine 60 units 07/30/18 22:00 07/30/18 21:53 Lantus SUB-Q 60 units QHS REJI Administration Insulin Human Lispro 0 unit 07/30/18 12:00 07/31/18 07:30 Humalog SUB-Q Not Given ACHS [facility] Protocol Insulin Human Lispro 20 unit 07/30/18 11:30 07/31/18 12:48 Humalog SUB-Q 20 unit AC REJI Administration Lisinopril 10 mg 07/30/18 10:00 07/31/18 09:36 Zestril PO 10 mg QDAY REJI Administration Morphine Sulfate 2 mg 07/29/18 19:26 07/31/18 12:46 Morphine IV 07/31/18 23:59 2 mg Q4H PRN Administration Pain, Moderate (4-6) Nicotine 21 mg 07/30/18 15:00 07/31/18 09:35 Habitrol TD 21 mg DAILY REJI Administration Ondansetron HCl 4 mg 07/29/18 19:26 Zofran IV Q8H PRN Nausea And Vomiting Ondansetron HCl 4 mg 07/30/18 11:55 Zofran IV ONCE PRN Nausea And Vomiting Oxycodone/Acetaminophen 1 tab 07/29/18 19:26 Percocet 5/325 PO Q6H PRN Pain, Moderate (4-6) Sodium Chloride 10 ml 07/29/18 22:00 07/31/18 09:36 Sodium Chloride Flush Syringe 10 Ml IV 10 ml BID REJI Administration Sodium Chloride 10 ml 07/29/18 19:26 07/31/18 05:40 Sodium Chloride Flush Syringe 10 Ml IV 10 ml PRN PRN Administration LINE FLUSH Ziprasidone 80 mg 07/29/18 22:00 07/31/18 12:47 Geodon PO 80 mg BID REJI Administration Nutrition/Malnutrition Assess - Dietary Evaluation Nutrition/Malnutrition Findings: Nutrition Notes Start: 07/30/18 09:32 Freq: Status: Active Protocol: Document 07/30/18 09:32 CP (Rec: 07/30/18 09:34 CP [id number]) Co-Sign 07/30/18 09:32 LP Nutrition Notes Need for Assessment generated from: MD Order,MST,Education Initial or Follow up Brief Note Current Diagnosis Diabetes,Hypertension Other Pertinent Diagnosis Cellulitis Current Diet NPO Weight change and time frame Pt screened for MST and consulted for diabetes education. Pt is non-compliant per MD note and stated that she had receiv ed education before. Noted no visible signs of malnutrition during time of visit. Nutrition Intervention Revisit per MD consult or patient Sign Off request:
--- NOTE | 2018-07-31 17:48 | Event Note ---
Date: 07/31/18 Pt sleeping. Will see tomorrow.
[2018-07-31] MEDS: COGENTIN PO SCH (21:53)
[2018-07-31] MEDS: LANTUS SUB-Q SCH (22:34)
[2018-08-01] MEDS: NACL 0.9% 1000 ML 1,000 ML IV SCH ×3 (00:51→22:50)
[2018-08-01] MEDS: PERCOCET 5/325 PO PRN ×3 (02:34→20:51)
[2018-08-01] MEDS: FLAGYL 500 MG/100 ML 500 MG/100 ML BAG IV SCH ×3 (05:10→23:16)
[2018-08-01 06:16] LABS: BUN/Creatinine Ratio 4; Blood Urea Nitrogen 2 mg/dL (7-17); Calcium 8.5 mg/dL (8.4-10.2); Hemolysis Index 0
[2018-08-01] MEDS: VANCOMYCIN 1,250 MG in NACL 0.9% 250ML 250 ML IV SCH (06:45)
[2018-08-01] MEDS: HumaLOG SUB-Q SCH ×8 (08:15→22:49)
[2018-08-01] MEDS: K-DUR PO SCH ×2 (08:46→16:24)
[2018-08-01] MEDS ORDERED: HumaLOG SUB-Q ONE ×2 (09:00→12:32)
[2018-08-01] MEDS: MAXIPIME/NS 2 GM/100 ML 2 GM/100 ML BAG IV SCH ×3 (10:33→22:39)
[2018-08-01] MEDS: WELLBUTRIN XL PO SCH (10:45)
[2018-08-01] MEDS: ZESTRIL PO SCH (10:46)
[2018-08-01] MEDS: HABITROL TD SCH (10:46)
[2018-08-01] MEDS: COLACE PO SCH ×2 (10:46→22:45)
[2018-08-01] MEDS: celeXA PO SCH (10:46)
[2018-08-01] MEDS: LOVENOX SUB-Q SCH (10:46)
[2018-08-01] MEDS: GEODON PO SCH ×2 (10:47→22:45)
--- NOTE | 2018-08-01 11:53 | Progress Note ---
Assessment and Plan Assessment and plan: DKA Was admitted to ICU, now transferred to Tele Blood glucose improved on Insulin drip Anion gap closed Off Insulin drip Resumed home lantus 60 Units qhs Resumed Humalog 20 Units qac Medical noncompliance. Patient states has not taken Insulin in 3 months Right thigh abscess Evaluated by Surg s/p I and D Hypokalemia Replace and recheck Obesity I counseled her on diet and exercise to lose weight Full code History Interval history: right thigh abscess s/p I and D less pain right thigh Hospitalist Physical - Physical exam Narrative exam: en: Not in acute distress, lying in bed,obese HEENT: Normocephalic, atraumatic Neck: supple, no JVD Heart: S1 and S2 reg, no murmurs, rubs or gallop Lungs: Clear, no crackles Abd: soft, non tender, non distended, normal BS Ext: Upper right thigh tender, warm, fluctuant,. no clubbing, no cyanosis, Neuro: AAO x 3. Normal speech - Constitutional Vitals: Temp Pulse Resp BP Pulse Ox 98.5 F 81 18 123/78 100 08/01/18 05:16 08/01/18 10:46 08/01/18 05:16 08/01/18 10:46 08/01/18 05:16 General appearance: Present: no acute distress, obese Results - Labs CBC & Chem 7: 07/31/18 08:30 08/01/18 05:35 Labs: Laboratory Last Values WBC 7.9 K/mm3 (4.5-11.0) 07/31/18 08:30 RBC 4.82 M/mm3 (3.65-5.03) 07/31/18 08:30 Hgb 13.5 gm/dl (10.1-14.3) 07/31/18 08:30 Hct 39.9 % (30.3-42.9) D 07/31/18 08:30 MCV 83 fl (79-97) 07/31/18 08:30 MCH 28 pg (28-32) 07/31/18 08:30 MCHC 34 % (30-34) 07/31/18 08:30 RDW 15.4 % (13.2-15.2) H 07/31/18 08:30 Plt Count 219 K/mm3 (140-440) 07/31/18 08:30 Lymph % (Auto) 22.2 % (13.4-35.0) 07/31/18 08:30 [place] % (Auto) 10.1 % (0.0-7.3) H 07/31/18 08:30 Eos % (Auto) 1.5 % (0.0-4.3) 07/31/18 08:30 Baso % (Auto) 0.9 % (0.0-1.8) 07/31/18 08:30 Lymph # 1.7 K/mm3 (1.2-5.4) 07/31/18 08:30 [place] # 0.8 K/mm3 (0.0-0.8) 07/31/18 08:30 Eos # 0.1 K/mm3 (0.0-0.4) 07/31/18 08:30 Baso # 0.1 K/mm3 (0.0-0.1) 07/31/18 08:30 Seg Neutrophils % 65.3 % (40.0-70.0) 07/31/18 08:30 Seg Neutrophils # 5.1 K/mm3 (1.8-7.7) 07/31/18 08:30 VBG pH 7.273 (7.320-7.420) L 07/29/18 17:58 Sodium 141 mmol/L (137-145) 08/01/18 05:35 Potassium 3.0 mmol/L (3.6-5.0) L 08/01/18 05:35 Chloride 106.4 mmol/L (98-107) 08/01/18 05:35 Carbon Dioxide 24 mmol/L (22-30) 08/01/18 05:35 14 mmol/L 08/01/18 05:35 BUN 2 mg/dL (7-17) L 08/01/18 05:35 0.5 mg/dL (0.7-1.2) L 08/01/18 05:35 Estimated GFR > 60 ml/min 08/01/18 05:35 4 % 08/01/18 05:35 Glucose 94 mg/dL (65-100) 08/01/18 05:35 POC Glucose 77 (70-105) 08/01/18 07:32 16.3 % (4-6) H 07/29/18 20:47 Lactic Acid 1.70 mmol/L (0.7-2.0) 07/29/18 15:57 Calcium 8.5 mg/dL (8.4-10.2) 08/01/18 05:35 Phosphorus 2.10 mg/dL (2.5-4.5) L 07/29/18 20:47 Magnesium 1.70 mg/dL (1.7-2.3) 07/29/18 20:47 0.30 mg/dL (0.1-1.2) 07/29/18 13:59 AST 9 units/L (5-40) 07/29/18 13:59 ALT 11 units/L (7-56) 07/29/18 13:59 83 units/L (35-129) 07/29/18 13:59 25.40 mg/dL (0.00-1.30) H 07/30/18 17:35 7.3 g/dL (6.3-8.2) 07/29/18 13:59 3.4 g/dL (3.9-5) L 07/29/18 13:59 0.9 % 07/29/18 13:59 Straw (Yellow) 07/29/18 14:40 Clear (Clear) 07/29/18 14:40 6.0 (5.0-7.0) 07/29/18 14:40 Ur Specific [place] 1.022 (1.003-1.030) 07/29/18 14:40 30 mg/dl mg/dL (Negative) 07/29/18 14:40 >=500 mg/dL (Negative) 07/29/18 14:40 80 mg/dL (Negative) 07/29/18 14:40 Lg (Negative) 07/29/18 14:40 Neg (Negative) 07/29/18 14:40 Neg (Negative) 07/29/18 14:40 < 2.0 mg/dL (<2.0) 07/29/18 14:40 Ur Leukocyte Esterase Neg (Negative) 07/29/18 14:40 2.0 /HPF (0.0-6.0) 07/29/18 14:40 18.0 /HPF (0.0-6.0) 07/29/18 14:40 U Epithel Cells (Auto) 2.0 /HPF (0-13.0) 07/29/18 14:40 1+ /HPF (Negative) 07/29/18 14:40 Vancomycin Trough 6.2 ug/mL (5.0-20.0) 08/01/18 05:35 Active Medications - Current Medications Current Medications: Generic Name Dose Route Start Last Admin Trade Name Freq PRN Reason Stop Dose Admin Acetaminophen 650 mg 07/29/18 19:26 08/01/18 02:41 Tylenol PO 650 mg Q4H PRN Administration Pain MILD(1-3)/Fever >100.5/CHARLES Albuterol 2.5 mg 07/29/18 19:54 Proventil IH Q4HRT PRN Shortness Of Breath Benztropine Mesylate 1 mg 07/29/18 22:00 07/31/18 21:53 Cogentin PO 1 mg QHS REJI Administration Bupropion HCl 300 mg 07/30/18 10:00 08/01/18 10:45 Wellbutrin Xl PO 300 mg QAM REJI Administration Citalopram Hydrobromide 10 mg 07/30/18 10:00 08/01/18 10:46 Celexa PO 10 mg QDAY REJI Administration Clonazepam 2 mg 07/29/18 22:00 07/31/18 21:52 Klonopin PO 2 mg QHS REJI Administration Dextrose 50 ml 07/30/18 06:27 D50w (25gm) Syringe IV PRN PRN Hypoglycemia Docusate Sodium 100 mg 07/29/18 22:00 08/01/18 10:46 Colace PO 100 mg BID REJI Administration Enoxaparin Sodium 40 mg 07/29/18 20:00 08/01/18 10:46 Lovenox SUB-Q 40 mg QDAY REJI Administration Hydralazine HCl 10 mg 07/29/18 19:44 Apresoline IV Q4HR PRN Blood Pressure Cefepime HCl 2 gm in 100 mls @ 200 mls/hr 07/30/18 18:00 08/01/18 10:33 Maxipime/Ns 2 Gm/100 Ml IV 200 mls/hr Q8HR REJI Administration Protocol Metronidazole 500 mg in 100 mls @ 100 mls/hr 07/30/18 18:00 08/01/18 05:10 Flagyl 500 Mg/100 Ml IV 100 mls/hr Q8HR REJI Administration Protocol Sodium Chloride 1,000 mls @ 150 mls/hr 07/31/18 09:00 08/01/18 10:47 Nacl 0.9% 1000 Ml IV 150 mls/hr DIRECT REJI Administration Vancomycin HCl 1,750 mg/ 535 mls @ 333.333 mls/hr 08/01/18 18:00 Sodium Chloride IV Q12H REJI Insulin Glargine 60 units 07/30/18 22:00 07/31/18 22:34 Lantus SUB-Q 60 units QHS REJI Administration Insulin Human Lispro 0 unit 07/30/18 12:00 08/01/18 08:15 Humalog SUB-Q Not Given ACHS [facility] Protocol Insulin Human Lispro 20 unit 07/30/18 11:30 08/01/18 08:33 Humalog SUB-Q Not Given AC [facility] Lisinopril 10 mg 07/30/18 10:00 08/01/18 10:46 Zestril PO 10 mg QDAY REJI Administration Nicotine 21 mg 07/30/18 15:00 08/01/18 10:46 Habitrol TD 21 mg DAILY REJI Administration Ondansetron HCl 4 mg 07/29/18 19:26 Zofran IV Q8H PRN Nausea And Vomiting Ondansetron HCl 4 mg 07/30/18 11:55 Zofran IV ONCE PRN Nausea And Vomiting Oxycodone/Acetaminophen 1 tab 07/29/18 19:26 08/01/18 05:12 Percocet 5/325 PO 1 tab Q6H PRN Administration Pain, Moderate (4-6) Potassium Chloride 40 meq 08/01/18 08:00 08/01/18 08:46 K-Dur PO 08/01/18 12:01 40 meq Q4H REJI Administration Sodium Chloride 10 ml 07/29/18 22:00 07/31/18 21:53 Sodium Chloride Flush Syringe 10 Ml IV 10 ml BID REJI Administration Sodium Chloride 10 ml 07/29/18 19:26 07/31/18 05:40 Sodium Chloride Flush Syringe 10 Ml IV 10 ml PRN PRN Administration LINE FLUSH Ziprasidone 80 mg 07/29/18 22:00 08/01/18 10:47 Geodon PO 80 mg BID REJI Administration Nutrition/Malnutrition Assess - Dietary Evaluation Nutrition/Malnutrition Findings: Nutrition Notes Start: 07/30/18 09:32 Freq: Status: Active Protocol: Document 07/30/18 09:32 CP (Rec: 07/30/18 09:34 CP [id number]) Co-Sign 07/30/18 09:32 LP Nutrition Notes Need for Assessment generated from: MD Order,MST,Education Initial or Follow up Brief Note Current Diagnosis Diabetes,Hypertension Other Pertinent Diagnosis Cellulitis Current Diet NPO Weight change and time frame Pt screened for MST and consulted for diabetes education. Pt is non-compliant per MD note and stated that she had receiv ed education before. Noted no visible signs of malnutrition during time of visit. Nutrition Intervention Revisit per MD consult or patient Sign Off request:
--- NOTE | 2018-08-01 12:00 | Progress Note ---
Assessment and Plan - Patient Problems (1) Abscess of right thigh Current Visit: Yes Status: Acute Plan to address problem: Pt stable. s/p I&D of right medial thigh abscess - 07/30/18 - POD#2. Will need to do Sitz baths everytime she uses the bathroom. Would like her to do it at least 3 times a day. f/u in office 1 week after discharge. [place] drain to be taken out in the office. Please call with questions. Time=10min Subjective Date of service: 08/01/18 Patient Reports: Positive: no new complaints, still having pain Objective Vital Signs - 12hr 08/01/18 08/01/18 08/01/18 00:25 02:41 05:12 Temperature 97.6 F Pulse Rate Respiratory 18 18 18 Rate Blood Pressure 126/88 O2 Sat by Pulse 91 Oximetry 08/01/18 08/01/18 05:16 10:46 Temperature 98.5 F Pulse Rate 79 81 Respiratory 18 Rate Blood Pressure 117/73 123/78 O2 Sat by Pulse 100 Oximetry - General physical appearance no distress, no pain - Respiratory normal expansion, normal respiratory effort - Integumentary other (dressing with moderate drainage. Induration present. No erythema. ) - Labs 07/31/18 08:30 08/01/18 05:35 Diabetes panel 08/01/18 Range/Units 05:35 Sodium 141 (137-145) mmol/L Potassium 3.0 L (3.6-5.0) mmol/L Chloride 106.4 (98-107) mmol/L Carbon Dioxide 24 (22-30) mmol/L BUN 2 L (7-17) mg/dL Creatinine 0.5 L (0.7-1.2) mg/dL Glucose 94 (65-100) mg/dL Calcium 8.5 (8.4-10.2) mg/dL Calcium panel 08/01/18 Range/Units 05:35 Calcium 8.5 (8.4-10.2) mg/dL Pituitary panel 08/01/18 Range/Units 05:35 Sodium 141 (137-145) mmol/L Potassium 3.0 L (3.6-5.0) mmol/L Chloride 106.4 (98-107) mmol/L Carbon Dioxide 24 (22-30) mmol/L BUN 2 L (7-17) mg/dL Creatinine 0.5 L (0.7-1.2) mg/dL Glucose 94 (65-100) mg/dL Calcium 8.5 (8.4-10.2) mg/dL Adrenal panel 08/01/18 Range/Units 05:35 Sodium 141 (137-145) mmol/L Potassium 3.0 L (3.6-5.0) mmol/L Chloride 106.4 (98-107) mmol/L Carbon Dioxide 24 (22-30) mmol/L BUN 2 L (7-17) mg/dL Creatinine 0.5 L (0.7-1.2) mg/dL Glucose 94 (65-100) mg/dL Calcium 8.5 (8.4-10.2) mg/dL
[2018-08-01] MEDS ORDERED: HumaLOG SUB-Q STA (14:41)
[2018-08-01] MEDS: SODIUM CHLORIDE FLUSH SYRINGE 10 ML IV SCH ×2 (15:01→22:44)
[2018-08-01] MEDS ORDERED: K-DUR PO SCH (15:15)
[2018-08-01] MEDS: VANCOMYCIN 1,750 MG in NACL 0.9% 500 ML 500 ML IV SCH (20:01)
[2018-08-01] MEDS: COGENTIN PO SCH (22:45)
[2018-08-01] MEDS ORDERED: LANTUS SUB-Q ONE (23:57)
[2018-08-02] MEDS: MAXIPIME/NS 2 GM/100 ML 2 GM/100 ML BAG IV SCH ×3 (05:17→21:44)
[2018-08-02] MEDS: FLAGYL 500 MG/100 ML 500 MG/100 ML BAG IV SCH ×3 (05:37→22:46)
[2018-08-02] MEDS: PERCOCET 5/325 PO PRN ×2 (06:06→19:01)
[2018-08-02 06:58] LABS: Hematocrit 36.7 % (30.3-42.9); Hemoglobin 12.2 gm/dl (10.1-14.3); Mean Corpuscular HGB Conc 33 % (30-34); Mean Corpuscular Volume 83 fl (79-97); Platelet Count 224 K/mm3 (140-440); Red Blood Count 4.41 M/mm3 (3.65-5.03); Red Cell Distribution Width 15.9 % (13.2-15.2)
[2018-08-02] MEDS: VANCOMYCIN 1,750 MG in NACL 0.9% 500 ML 500 ML IV SCH ×2 (07:07→17:46)
[2018-08-02 07:21] LABS: BUN/Creatinine Ratio 4; Blood Urea Nitrogen 2 mg/dL (7-17); Hemolysis Index 137
[2018-08-02] MEDS ORDERED: HumaLOG SUB-Q SCH (08:28)
[2018-08-02] MEDS: HumaLOG SUB-Q SCH ×6 (08:53→18:56)
--- NOTE | 2018-08-02 09:56 | Progress Note ---
Assessment and Plan Assessment and plan: DKA Was admitted to ICU, now transferred to Medical floorTele Blood glucose improved on Insulin drip Anion gap closed Off Insulin drip Resumed home lantus 60 Units qhs Resumed Humalog 20 Units qac She states that she was not actually taking Lantus and Humalog for the past 3 months because of abdominal pain Would decrease insulin dose because blood glucose on lower side. Medical noncompliance. Patient states has not taken Insulin in 3 months Right thigh abscess Evaluated by Surg s/p I and D Hypokalemia Replace and recheck Obesity I counseled her on diet and exercise to lose weight Full code History Interval history: right thigh abscess s/p I and D less pain right thigh Hospitalist Physical - Physical exam Narrative exam: en: Not in acute distress, lying in bed,obese HEENT: Normocephalic, atraumatic Neck: supple, no JVD Heart: S1 and S2 reg, no murmurs, rubs or gallop Lungs: Clear, no crackles Abd: soft, non tender, non distended, normal BS Ext: Upper right thigh tender, warm, fluctuant,. no clubbing, no cyanosis, Neuro: AAO x 3. Normal speech - Constitutional Vitals: Temp Pulse Resp BP Pulse Ox 99.5 F 75 20 119/80 98 08/02/18 05:01 08/02/18 05:01 08/02/18 05:01 08/02/18 05:01 08/02/18 05:01 General appearance: Present: no acute distress, obese Results - Labs CBC & Chem 7: 08/02/18 06:29 08/02/18 06:29 Labs: Laboratory Last Values WBC 5.6 K/mm3 (4.5-11.0) 08/02/18 06:29 RBC 4.41 M/mm3 (3.65-5.03) 08/02/18 06:29 Hgb 12.2 gm/dl (10.1-14.3) 08/02/18 06:29 Hct 36.7 % (30.3-42.9) 08/02/18 06:29 MCV 83 fl (79-97) 08/02/18 06:29 MCH 28 pg (28-32) 08/02/18 06:29 MCHC 33 % (30-34) 08/02/18 06:29 RDW 15.9 % (13.2-15.2) H 08/02/18 06:29 Plt Count 224 K/mm3 (140-440) 08/02/18 06:29 Lymph % (Auto) 22.2 % (13.4-35.0) 07/31/18 08:30 [place] % (Auto) 10.1 % (0.0-7.3) H 07/31/18 08:30 Eos % (Auto) 1.5 % (0.0-4.3) 07/31/18 08:30 Baso % (Auto) 0.9 % (0.0-1.8) 07/31/18 08:30 Lymph # 1.7 K/mm3 (1.2-5.4) 07/31/18 08:30 [place] # 0.8 K/mm3 (0.0-0.8) 07/31/18 08:30 Eos # 0.1 K/mm3 (0.0-0.4) 07/31/18 08:30 Baso # 0.1 K/mm3 (0.0-0.1) 07/31/18 08:30 Seg Neutrophils % 65.3 % (40.0-70.0) 07/31/18 08:30 Seg Neutrophils # 5.1 K/mm3 (1.8-7.7) 07/31/18 08:30 VBG pH 7.273 (7.320-7.420) L 07/29/18 17:58 Sodium 141 mmol/L (137-145) 08/02/18 06:29 Potassium 4.8 mmol/L (3.6-5.0) D 08/02/18 06:29 Chloride 108.8 mmol/L (98-107) H 08/02/18 06:29 Carbon Dioxide 23 mmol/L (22-30) 08/02/18 06:29 14 mmol/L 08/02/18 06:29 BUN 2 mg/dL (7-17) L 08/02/18 06:29 0.5 mg/dL (0.7-1.2) L 08/02/18 06:29 Estimated GFR > 60 ml/min 08/02/18 06:29 4 % 08/02/18 06:29 Glucose 169 mg/dL (65-100) H 08/02/18 06:29 POC Glucose 155 (70-105) H 08/02/18 07:39 16.3 % (4-6) H 07/29/18 20:47 Lactic Acid 1.70 mmol/L (0.7-2.0) 07/29/18 15:57 Calcium 8.0 mg/dL (8.4-10.2) L 08/02/18 06:29 Phosphorus 2.10 mg/dL (2.5-4.5) L 07/29/18 20:47 Magnesium 1.70 mg/dL (1.7-2.3) 07/29/18 20:47 0.30 mg/dL (0.1-1.2) 07/29/18 13:59 AST 9 units/L (5-40) 07/29/18 13:59 ALT 11 units/L (7-56) 07/29/18 13:59 83 units/L (35-129) 07/29/18 13:59 25.40 mg/dL (0.00-1.30) H 07/30/18 17:35 7.3 g/dL (6.3-8.2) 07/29/18 13:59 3.4 g/dL (3.9-5) L 07/29/18 13:59 0.9 % 07/29/18 13:59 Straw (Yellow) 07/29/18 14:40 Clear (Clear) 07/29/18 14:40 6.0 (5.0-7.0) 07/29/18 14:40 Ur Specific [place] 1.022 (1.003-1.030) 07/29/18 14:40 30 mg/dl mg/dL (Negative) 07/29/18 14:40 >=500 mg/dL (Negative) 07/29/18 14:40 80 mg/dL (Negative) 07/29/18 14:40 Lg (Negative) 07/29/18 14:40 Neg (Negative) 07/29/18 14:40 Neg (Negative) 07/29/18 14:40 < 2.0 mg/dL (<2.0) 07/29/18 14:40 Ur Leukocyte Esterase Neg (Negative) 07/29/18 14:40 2.0 /HPF (0.0-6.0) 07/29/18 14:40 18.0 /HPF (0.0-6.0) 07/29/18 14:40 U Epithel Cells (Auto) 2.0 /HPF (0-13.0) 07/29/18 14:40 1+ /HPF (Negative) 07/29/18 14:40 Vancomycin Trough 6.2 ug/mL (5.0-20.0) 08/01/18 05:35 Active Medications - Current Medications Current Medications: Generic Name Dose Route Start Last Admin Trade Name Freq PRN Reason Stop Dose Admin Acetaminophen 650 mg 07/29/18 19:26 08/01/18 02:41 Tylenol PO 650 mg Q4H PRN Administration Pain MILD(1-3)/Fever >100.5/CHARLES Albuterol 2.5 mg 07/29/18 19:54 Proventil IH Q4HRT PRN Shortness Of Breath Benztropine Mesylate 1 mg 07/29/18 22:00 08/01/18 22:45 Cogentin PO 1 mg QHS REJI Administration Bupropion HCl 300 mg 07/30/18 10:00 08/01/18 10:45 Wellbutrin Xl PO 300 mg QAM REJI Administration Citalopram Hydrobromide 10 mg 07/30/18 10:00 08/01/18 10:46 Celexa PO 10 mg QDAY REJI Administration Clonazepam 2 mg 07/29/18 22:00 08/01/18 22:45 Klonopin PO 2 mg QHS REJI Administration Dextrose 50 ml 07/30/18 06:27 D50w (25gm) Syringe IV PRN PRN Hypoglycemia Docusate Sodium 100 mg 07/29/18 22:00 08/01/18 22:45 Colace PO 100 mg BID REJI Administration Enoxaparin Sodium 40 mg 07/29/18 20:00 08/01/18 10:46 Lovenox SUB-Q 40 mg QDAY REJI Administration Hydralazine HCl 10 mg 07/29/18 19:44 Apresoline IV Q4HR PRN Blood Pressure Cefepime HCl 2 gm in 100 mls @ 200 mls/hr 07/30/18 18:00 08/02/18 05:17 Maxipime/Ns 2 Gm/100 Ml IV 200 mls/hr Q8HR REJI Administration Protocol Metronidazole 500 mg in 100 mls @ 100 mls/hr 07/30/18 18:00 08/02/18 05:37 Flagyl 500 Mg/100 Ml IV 100 mls/hr Q8HR REJI Administration Protocol Sodium Chloride 1,000 mls @ 150 mls/hr 07/31/18 09:00 08/01/18 22:50 Nacl 0.9% 1000 Ml IV 150 mls/hr DIRECT REJI Administration Vancomycin HCl 1,750 mg/ 535 mls @ 333.333 mls/hr 08/01/18 18:00 08/02/18 07:07 Sodium Chloride IV 333.333 mls/hr Q12H REJI Administration Insulin Glargine 60 units 07/30/18 22:00 07/31/18 22:34 Lantus SUB-Q 60 units QHS REJI Administration Insulin Human Lispro 0 unit 07/30/18 12:00 08/02/18 08:53 Humalog SUB-Q 2 unit ACHS REJI Administration Protocol Insulin Human Lispro 10 unit 08/02/18 09:00 08/02/18 08:53 Humalog SUB-Q 10 unit AC REJI Administration Lisinopril 10 mg 07/30/18 10:00 08/01/18 10:46 Zestril PO 10 mg QDAY REJI Administration Nicotine 21 mg 07/30/18 15:00 08/01/18 10:46 Habitrol TD 21 mg DAILY REJI Administration Ondansetron HCl 4 mg 07/29/18 19:26 Zofran IV Q8H PRN Nausea And Vomiting Ondansetron HCl 4 mg 07/30/18 11:55 Zofran IV ONCE PRN Nausea And Vomiting Oxycodone/Acetaminophen 1 tab 07/29/18 19:26 08/02/18 06:06 Percocet 5/325 PO 1 tab Q6H PRN Administration Pain, Moderate (4-6) Sodium Chloride 10 ml 07/29/18 22:00 08/01/18 22:44 Sodium Chloride Flush Syringe 10 Ml IV 10 ml BID REJI Administration Sodium Chloride 10 ml 07/29/18 19:26 07/31/18 05:40 Sodium Chloride Flush Syringe 10 Ml IV 10 ml PRN PRN Administration LINE FLUSH Ziprasidone 80 mg 07/29/18 22:00 08/01/18 22:45 Geodon PO 80 mg BID REJI Administration Nutrition/Malnutrition Assess - Dietary Evaluation Nutrition/Malnutrition Findings: Nutrition Notes Start: 07/30/18 09:32 Freq: Status: Active Protocol: Document 07/30/18 09:32 CP (Rec: 07/30/18 09:34 CP [id number]) Co-Sign 07/30/18 09:32 LP Nutrition Notes Need for Assessment generated from: MD Order,MST,Education Initial or Follow up Brief Note Current Diagnosis Diabetes,Hypertension Other Pertinent Diagnosis Cellulitis Current Diet NPO Weight change and time frame Pt screened for MST and consulted for diabetes education. Pt is non-compliant per MD note and stated that she had receiv ed education before. Noted no visible signs of malnutrition during time of visit. Nutrition Intervention Revisit per MD consult or patient Sign Off request:
[2018-08-02] MEDS: ZESTRIL PO SCH (10:21)
[2018-08-02] MEDS: COLACE PO SCH ×2 (10:21→21:50)
[2018-08-02] MEDS: GEODON PO SCH ×2 (10:21→21:51)
[2018-08-02] MEDS: WELLBUTRIN XL PO SCH (10:22)
[2018-08-02] MEDS: SODIUM CHLORIDE FLUSH SYRINGE 10 ML IV SCH ×2 (10:22→21:44)
[2018-08-02] MEDS: celeXA PO SCH (10:22)
[2018-08-02] MEDS: HABITROL TD SCH (10:22)
[2018-08-02] MEDS: LOVENOX SUB-Q SCH (10:22)
[2018-08-02] MEDS: NACL 0.9% 1000 ML 1,000 ML IV SCH (10:30)
[2018-08-02] MEDS: COGENTIN PO SCH (21:52)
[2018-08-02] MEDS ORDERED: LANTUS SUB-Q SCH (22:00)
[2018-08-03] MEDS: NACL 0.9% 1000 ML 1,000 ML IV SCH ×2 (01:39→11:28)
[2018-08-03] MEDS: MAXIPIME/NS 2 GM/100 ML 2 GM/100 ML BAG IV SCH ×2 (05:56→14:38)
[2018-08-03] MEDS: FLAGYL 500 MG/100 ML 500 MG/100 ML BAG IV SCH ×2 (05:57→15:51)
[2018-08-03] MEDS: VANCOMYCIN 1,750 MG in NACL 0.9% 500 ML 500 ML IV SCH (07:01)
[2018-08-03] MEDS: PERCOCET 5/325 PO PRN ×2 (07:03→12:45)
[2018-08-03] MEDS: HumaLOG SUB-Q SCH ×7 (08:34→18:25)
--- NOTE | 2018-08-03 09:31 | Progress Note ---
Assessment and Plan Cultures: Blood culture 07/29/2018 no growth to date Surgical culture 07/30/18: Em Assessment: 48 y/o female with history of uncontrolled diabetes, noncompliant, asthma, hypertension and depression admitted on 07/29/2018 due to a-week history of right groin tenderness and edema which progressively grew from a small bump: 1) Sepsis: Resolved. Present on admission, manifested by tachycardia, increased lactate. Etiology most likely right groin/inner thigh abscess. 2) Right groin/inner thigh abscess: Isolate grew em. S/p OR I+D on 07/30/2018 found to have a long abscess cavity on inside of thigh without extension into other areas. 3) DM: uncontrolled, glucose 568 Recommendations: - follow-up blood cultures, OR wound culture - continue cefepime and flagyl, D2 - discontinue vanconycin - continue wound care -Anticipate discharge on Levaquin 750mg PO every 24 hours and Flagyl 500mg PO every 8 hours until 08-12-18 - f/u I D clinic in 1 week [facility] M: [phone] O:[phone] Subjective Date of service: 08/03/18 Objective - Constitutional Vitals: Vital Signs Temp Pulse Resp BP Pulse Ox 98.2 F 81 20 145/80 100 08/03/18 05:09 08/02/18 22:06 08/03/18 05:09 08/03/18 05:09 08/02/18 22:06 Temperature -Last 24 Hours Temperature 98.2 F Temperature 98.6 F Temperature 98.6 F Temperature 98.7 F - Labs CBC & Chem 7: 08/02/18 06:29 08/02/18 06:29 Labs: Abnormal lab results 08/02/18 08/02/18 08/03/18 Range/Units 11:29 21:07 07:59 POC Glucose 184 H 274 H 143 H (70-105)
[2018-08-03] MEDS: WELLBUTRIN XL PO SCH (11:26)
[2018-08-03] MEDS: SODIUM CHLORIDE FLUSH SYRINGE 10 ML IV SCH (11:26)
[2018-08-03] MEDS: GEODON PO SCH (11:27)
[2018-08-03] MEDS: COLACE PO SCH (11:27)
[2018-08-03] MEDS: LOVENOX SUB-Q SCH (11:27)
[2018-08-03] MEDS: celeXA PO SCH (11:27)
[2018-08-03] MEDS: HABITROL TD SCH (11:28)
[2018-08-03] MEDS: ZESTRIL PO SCH (12:45)
--- NOTE | 2018-08-03 15:18 | Discharge Summary ---
Providers - Providers Date of Admission: 07/29/18 19:26 Date of discharge: 08/03/18 Attending physician: DWIGHT MOHAN 07/29/18 19:27 Consult to Dietitian/Nutrition [CONS] Routine Physician Instructions: Reason For Exam: DKA Reason for Consult: Nutrition Recommendations Reason for Consult: Diet education 07/29/18 19:45 Consult to Physician [CONS] Routine Comment: Consulting Provider: WANDA LUNA Physician Instructions: Reason For Exam: rt groin abscess 07/29/18 22:12 Consult to Physician [CONS] Routine Comment: Consulting Provider: WEN OWENS Physician Instructions: Reason For Exam: right groin abscess Primary care physician: FLY CUEVAS DO Hospitalization Condition: Fair Hospital course: Patient is 48-year-old lady with a history of hypertension, diabetes, depression sent to the emergency room for evaluation. She stated that 3 days prior to admission she had a bump in the right groin area that popped 2 days later with blood tinge pus discharge. The area of infection is clinically growing size resulting increasing pain, difficulty sitting. She denied any fever or chills. She had not taken her insulin in 3 months. Physical exam was significant for extensive area of induration anteriorly around the labia majora, extending posteriorly, erythema, tender to touch, open wound about 2 cm. She was started on IV fluids, IV antibiotics. She was also in DKA, started on Insulin drip and admitted to intensive care unit. Surgery did I and D of right thigh abscess. She improved and discharged home on Levaquin and Flagyl on 08/03/18. DKA Was admitted to ICU, transferred to Medical floor after glucose controlled on She states that she was not actually taking Lantus and Humalog for the past 3 months because of abdominal pain Would decrease insulin dose because blood glucose on lower side. Medical noncompliance. Patient states has not taken Insulin in 3 months Right thigh abscess Evaluated by Surg s/p I and D Hypokalemia Replace and recheck Obesity I counseled her on diet and exercise to lose weight Disposition: DC/TX-06 HOME UNDER HOME HLTH - Discharge Diagnoses (1) Sepsis Status: Acute (2) Abscess of right thigh Status: Acute (3) DKA (diabetic ketoacidoses) Status: Acute (4) Hyperkalemia Status: Acute Core Measure Documentation - Palliative Care Palliative Care/ Comfort Measures: Not Applicable - Core Measures Any of the following diagnoses?: none Exam - Constitutional Vitals: Temp Pulse Resp BP Pulse Ox 98.3 F 72 18 151/88 95 08/03/18 12:06 08/03/18 12:06 08/03/18 12:06 08/03/18 12:06 08/03/18 12:06 Plan Activity: no restrictions Diet: low fat, low cholesterol, low salt Additional Instructions: 1.Follow up with PCP or [facility] in 1 week. 2.Follow up with Dr. Owens, Surgeon in 1 week. 3.Follow up with Dr. Ragsdale, ID in 1 week. 4.Use sitz bath. 5.Carleen drain to be taken out in office. Follow up with: TANIYA BRADLEYOCEANSIDE MD VINH [Referring] - 3-5 Days Prescriptions: metroNIDAZOLE [Flagyl] 500 mg PO Q8HR #10 tablet Insulin Lispro [HumaLOG VIAL] 10 units SQ AC #1 vial RX: Insulin Glargine [Lantus VIAL] 30 units SUB-Q QHS #1 vial levoFLOXacin [Levaquin] 750 mg PO QDAY #10 tablet RX: Lisinopril [Zestril TAB] 10 mg PO QDAY #30 tablet
[2018-08-03 16:55] VITALS: BP 98/78
== END 2018-08-03 19:40 | disposition home health service (06) | DRG 853 ==
LOC: ED 13:26 → CC1 19:26 → 3A 07-30 13:58
PROVIDERS: ADMIT Internal Medicine; ATTEND Internal Medicine
PROC: 0J9L0ZZ Drainage of Right Upper Leg Subcutaneous Tissue and Fascia, Open Approach (ICD-10-PCS; principal; 2018-07-30)
DX: A41.9 Sepsis, unspecified organism (principal); E11.10 Type 2 diabetes mellitus with ketoacidosis without coma; L02.415 Cutaneous abscess of right lower limb; L02.31 Cutaneous abscess of buttock; N73.9 Female pelvic inflammatory disease, unspecified; L03.115 Cellulitis of right lower limb; L03.314 Cellulitis of groin; L02.214 Cutaneous abscess of groin; L03.317 Cellulitis of buttock; I16.0 Hypertensive urgency; I10 Essential (primary) hypertension; J45.909 Unspecified asthma, uncomplicated; F17.210 Nicotine dependence, cigarettes, uncomplicated; F32.9 Major depressive disorder, single episode, unspecified; E66.9 Obesity, unspecified; E87.6 Hypokalemia; Z79.4 Long term (current) use of insulin; Z88.2 Allergy status to sulfonamides; Z68.30 Body mass index [BMI] 30.0-30.9, adult; Z91.013 Allergy to seafood; Z90.710 Acquired absence of both cervix and uterus; Z90.49 Acquired absence of other specified parts of digestive tract
CPT/HCPCS: 36415; 80048; 80053; 80202; 81001; 82140; 82805; 82962; 83036; 83735; 84100; 85025; 85027; 86140; 87040; 87075; 87116; 87641; 96365; 96375; 99285; G0378; J0295; J0692; J1170; J1650; J1815; J2270; J2405; J2704; J3370; J7030; J7040; J7050; J7120

== ENCOUNTER 2019-08-16 18:16 | Emergency (ER) | payer MEDICAID ==
[2019-08-16 19:15] LABS: Basophils % (Auto) 0.2 % (0.0-1.8); Lymphocytes # (Auto) 0.4 K/mm3 (1.2-5.4); Lymphocytes % (Auto) 4.1 % (13.4-35.0); Mean Corpuscular HGB Conc 29 % (30-34); Mean Corpuscular Volume 94 fl (79-97); Monocytes # (Auto) 0.5 K/mm3 (0.0-0.8); Monocytes % (Auto) 5.7 % (0.0-7.3); Platelet Count 226 K/mm3 (140-440); Red Blood Count 5.65 M/mm3 (3.65-5.03)
[2019-08-16 19:17] LABS: Hematocrit 53.1 % (30.3-42.9); Hemoglobin 15.4 gm/dl (10.1-14.3)
[2019-08-16] MEDS ORDERED: LORazepam 2 MG/ML VIAL ONE (19:35)
[2019-08-16 19:36] LABS: Calcium 10.4 mg/dL (8.4-10.2)
[2019-08-16] MEDS ORDERED: LORazepam 2 MG/ML VIAL IV ONE (19:37)
[2019-08-16] MEDS ORDERED: SODIUM CHLORIDE 0.9% 1000 ML 1,000 ML IV ONE (19:37)
[2019-08-16 19:40] LABS: Alanine Aminotransferase 32 units/L (7-56); Albumin 4.2 g/dL (3.9-5)
--- NOTE | 2019-08-16 19:40 | Emergency Department Report ---
ED Altered Mental Status HPI - General Chief Complaint: Altered Mental Status Stated Complaint: HIGH BLOOD SUGAR Time Seen by Provider: 08/16/19 18:45 Source: EMS Mode of arrival: Stretcher Limitations: Altered Mental Status - History of Present Illness Initial Comments: 49-year-old female with history of diabetes, schizophrenia, tardive dyskinesia, presents to ED with altered mental status. EMS states patient's reports patient became altered her earlier in the day. States glucose has been high and unable to control. EMS states accucheck read HIGH. reports that patient normally has tremors in one of her arms and legs, but currently the tremors are more pronounced. MD Complaint: altered mental status -: This evening Severity: moderate Consistency of Symptoms: getting worse Context: diabetes - Related Data Home Medications Medication Instructions Recorded Confirmed Last Taken Benztropine [Cogentin] 1 mg PO QHS 11/29/14 07/29/18 11/28/14 Citalopram [celeXA] 20 mg PO QDAY 11/29/14 07/29/18 11/29/14 Ziprasidone HCl [Geodon] 80 mg PO BID 11/29/14 07/29/18 11/29/14 buPROPion XL [Wellbutrin XL] 300 mg PO QAM 11/29/14 07/29/18 11/29/14 clonazePAM [KlonoPIN] 2 mg PO QHS 11/29/14 07/29/18 11/28/14 risperiDONE [RisperiDONE] 3 mg PO QHS 11/29/14 07/29/18 11/29/14 Losartan [Cozaar] 50 mg PO QDAY 07/29/18 07/29/18 Unknown Previous Rx's Medication Instructions Recorded Last Taken Type Albuterol INH(or & Nicu Only) 1 puff IH Q4H PRN #1 inha 05/12/17 Unknown Rx [ProAir HFA Inhaler] Insulin Glargine [Lantus VIAL] 30 units SUB-Q QHS #1 vial 08/03/18 Unknown Rx Insulin Lispro [HumaLOG VIAL] 10 units SQ AC #1 vial 08/03/18 Unknown Rx levoFLOXacin [Levaquin] 750 mg PO QDAY #10 tablet 08/03/18 Unknown Rx lisinopriL [Zestril TAB] 10 mg PO QDAY #30 tablet 08/03/18 Unknown Rx metroNIDAZOLE [Flagyl] 500 mg PO Q8HR #10 tablet 08/03/18 Unknown Rx Allergies Allergy/AdvReac Type Severity Reaction Status Date / Time shellfish derived Allergy Swelling Verified 07/29/18 13:28 Sulfa (Sulfonamide Allergy Hives Verified 07/29/18 13:28 Antibiotics) ED Review of Systems ROS: Stated complaint: HIGH BLOOD SUGAR Other details as noted in HPI Comment: Unobtainable due to pts medical conditions ED Past Medical Hx - Past Medical History Previous Medical History?: Yes Hx Hypertension: Yes Hx Diabetes: Yes Hx Psychiatric Treatment: Yes (depression) Hx Asthma: Yes - Surgical History Hx Cholecystectomy: Yes Additional Surgical History: kidney stone surgery 2, colon biopsy, cyst removal from left upper extremity. hystertectomy - Social History Smoking Status: Unknown if ever smoked Substance Use Type: None - Medications Home Medications: Home Medications Medication Instructions Recorded Confirmed Last Taken Type Benztropine [Cogentin] 1 mg PO QHS 11/29/14 07/29/18 11/28/14 History Citalopram [celeXA] 20 mg PO QDAY 11/29/14 07/29/18 11/29/14 History Ziprasidone HCl [Geodon] 80 mg PO BID 11/29/14 07/29/18 11/29/14 History buPROPion XL [Wellbutrin XL] 300 mg PO QAM 11/29/14 07/29/18 11/29/14 History clonazePAM [KlonoPIN] 2 mg PO QHS 11/29/14 07/29/18 11/28/14 History risperiDONE [RisperiDONE] 3 mg PO QHS 11/29/14 07/29/18 11/29/14 History Albuterol INH(or & Nicu Only) 1 puff IH Q4H PRN #1 inha 05/12/17 07/29/18 Unknown Rx [ProAir HFA Inhaler] Losartan [Cozaar] 50 mg PO QDAY 07/29/18 07/29/18 Unknown History Insulin Glargine [Lantus VIAL] 30 units SUB-Q QHS #1 vial 08/03/18 Unknown Rx Insulin Lispro [HumaLOG VIAL] 10 units SQ AC #1 vial 08/03/18 Unknown Rx levoFLOXacin [Levaquin] 750 mg PO QDAY #10 tablet 08/03/18 Unknown Rx lisinopriL [Zestril TAB] 10 mg PO QDAY #30 tablet 08/03/18 Unknown Rx metroNIDAZOLE [Flagyl] 500 mg PO Q8HR #10 tablet 08/03/18 Unknown Rx ED Physical Exam - General Limitations: Altered Mental Status General appearance: lethargic - Head Head exam: Present: atraumatic, normocephalic - Eye Eye exam: Present: normal appearance, PERRL, EOMI - ENT ENT exam: Present: mucous membranes moist - Neck Neck exam: Present: normal inspection - Respiratory Respiratory exam: Present: normal lung sounds bilaterally. Absent: respiratory distress - Cardiovascular Cardiovascular Exam: Present: normal rhythm, tachycardia - GI/Abdominal GI/Abdominal exam: Present: soft. Absent: distended, tenderness - Extremities Exam Extremities exam: Present: normal inspection - Neurological Exam Neurological exam: Present: alert (alert but slow to respond), oriented X3, motor sensory deficit (moves all extremities; pt was able to sit up and move to the end of the stretcher), other (generalized tremor) - Psychiatric Psychiatric exam: Present: normal affect, normal mood - Skin Skin exam: Present: warm, dry, intact, normal color ED Course Vital Signs 08/16/19 08/16/19 08/16/19 18:40 18:45 19:00 Temperature Pulse Rate 131 H 123 H Respiratory 20 Rate Blood Pressure 179/107 151/90 O2 Sat by Pulse 94 91 95 Oximetry 08/16/19 08/16/19 08/16/19 19:38 20:12 20:16 Temperature Pulse Rate 126 H Respiratory 20 Rate Blood Pressure 179/107 179/107 179/107 O2 Sat by Pulse 95 95 Oximetry 08/16/19 08/16/19 08/16/19 20:40 20:43 20:46 Temperature 98.7 F Pulse Rate 115 H Respiratory 23 Rate Blood Pressure 179/107 137/106 O2 Sat by Pulse 96 96 Oximetry 08/16/19 08/16/19 08/16/19 21:00 21:16 21:30 Temperature Pulse Rate 121 H 112 H 113 H Respiratory 27 H 22 48 H Rate Blood Pressure 137/106 137/106 137/106 O2 Sat by Pulse 99 96 95 Oximetry 08/16/19 08/16/19 08/16/19 21:46 22:00 22:16 Temperature Pulse Rate 108 H 111 H 111 H Respiratory 30 H 20 40 H Rate Blood Pressure 137/106 137/106 137/106 O2 Sat by Pulse 95 97 97 Oximetry 08/16/19 08/16/19 08/16/19 22:30 22:46 23:00 Temperature Pulse Rate 108 H 123 H 111 H Respiratory 45 H 38 H 23 Rate Blood Pressure 137/106 135/91 135/91 O2 Sat by Pulse 96 99 98 Oximetry 08/16/19 23:16 Temperature Pulse Rate 113 H Respiratory 39 H Rate Blood Pressure 140/89 O2 Sat by Pulse 96 Oximetry - Reevaluation(s) Reevaluation #1: 08/16/19 20:27 Spoke w/ pt's , Mr Bijan Santos ([phone]), over the phone. Denies all COVID symptoms. Denies any contact w/ ayone who has tested positive for COVID-19. Admits pt has been drinking and eating lots of sugar lately. Also states she sometimes forgets to take her insulin. Glucose has been running high, but states pt did not want to come to the hospital fo fear of taylor COVID-19. Reevaluation #2: 08/16/19 20:40 Radiologist called to report SAH. I spoke again w/ pt's . He denies any recent trauma or falls. States pt had no complaints of CHARLES. - Consultations Consultation #1: 08/16/19 20:47 Spoke w/ [facility] transfer line, currently on diversion. 08/16/19 21:18 Spoke w/ [facility] neuro[facility]geon, Dr Grubbs, and neurointensivist Dr Pena. Pt accepted to [facility] - Lab Data Result diagrams: 08/16/19 18:54 08/16/19 20:48 Lab Results 08/16/19 08/16/19 08/16/19 Range/Units 18:54 18:54 18:54 WBC 9.1 (4.5-11.0) K/mm3 RBC 5.65 H (3.65-5.03) M/mm3 Hgb 15.4 H (10.1-14.3) gm/dl Hct 53.1 H (30.3-42.9) % MCV 94 (79-97) fl MCH 27 L (28-32) pg MCHC 29 L (30-34) % RDW 15.0 (13.2-15.2) % Plt Count 226 (140-440) K/mm3 Lymph % (Auto) 4.1 L (13.4-35.0) % [place] % (Auto) 5.7 (0.0-7.3) % Eos % (Auto) 0.0 (0.0-4.3) % Baso % (Auto) 0.2 (0.0-1.8) % Lymph # 0.4 L (1.2-5.4) K/mm3 [place] # 0.5 (0.0-0.8) K/mm3 Eos # 0.0 (0.0-0.4) K/mm3 Baso # 0.0 (0.0-0.1) K/mm3 Seg Neutrophils % 90.0 H (40.0-70.0) % Seg Neutrophils # 8.2 H (1.8-7.7) K/mm3 PT (12.2-14.9) Sec. INR (0.87-1.13) APTT (24.2-36.6) Sec. VBG pH (7.320-7.420) Sodium 135 L (137-145) mmol/L Potassium 4.8 (3.6-5.0) mmol/L Chloride 92.8 L (98-107) mmol/L Carbon Dioxide 15 L (22-30) mmol/L Anion Gap 32 mmol/L BUN 16 (7-17) mg/dL Creatinine 1.3 H (0.7-1.2) mg/dL Estimated GFR 53 ml/min BUN/Creatinine Ratio 12 % Glucose 1816 H* (65-100) mg/dL Ketones Quantitative (Negative) Lactic Acid (0.7-2.0) mmol/L Calcium 10.4 H (8.4-10.2) mg/dL Phosphorus (2.5-4.5) mg/dL Magnesium (1.7-2.3) mg/dL Total Bilirubin 0.30 (0.1-1.2) mg/dL Direct Bilirubin < 0.2 (0-0.2) mg/dL Indirect Bilirubin 0.1 mg/dL AST 26 (5-40) units/L ALT 32 (7-56) units/L Alkaline Phosphatase 168 H (35-129) units/L Troponin T (0.00-0.029) ng/mL Total Protein 7.4 (6.3-8.2) g/dL Albumin 4.2 (3.9-5) g/dL Albumin/Globulin Ratio 1.3 % Urine Color (Yellow) Urine Turbidity (Clear) Urine pH (5.0-7.0) Ur Specific [place] (1.003-1.030) Urine Protein (Negative) mg/dL Urine Glucose (UA) (Negative) mg/dL Urine Ketones (Negative) mg/dL Urine Blood (Negative) Urine Nitrite (Negative) Urine Bilirubin (Negative) Urine Urobilinogen (<2.0) mg/dL Ur Leukocyte Esterase (Negative) Urine WBC (Auto) (0.0-6.0) /HPF Urine RBC (Auto) (0.0-6.0) /HPF U Epithel Cells (Auto) (0-13.0) /HPF Urine Bacteria (Auto) (Negative) /HPF 08/16/19 08/16/19 08/16/19 Range/Units 18:54 18:54 18:54 WBC (4.5-11.0) K/mm3 RBC (3.65-5.03) M/mm3 Hgb (10.1-14.3) gm/dl Hct (30.3-42.9) % MCV (79-97) fl MCH (28-32) pg MCHC (30-34) % RDW (13.2-15.2) % Plt Count (140-440) K/mm3 Lymph % (Auto) (13.4-35.0) % [place] % (Auto) (0.0-7.3) % Eos % (Auto) (0.0-4.3) % Baso % (Auto) (0.0-1.8) % Lymph # (1.2-5.4) K/mm3 [place] # (0.0-0.8) K/mm3 Eos # (0.0-0.4) K/mm3 Baso # (0.0-0.1) K/mm3 Seg Neutrophils % (40.0-70.0) % Seg Neutrophils # (1.8-7.7) K/mm3 PT (12.2-14.9) Sec. INR (0.87-1.13) APTT (24.2-36.6) Sec. VBG pH 7.284 L (7.320-7.420) Sodium (137-145) mmol/L Potassium (3.6-5.0) mmol/L Chloride (98-107) mmol/L Carbon Dioxide (22-30) mmol/L Anion Gap mmol/L BUN (7-17) mg/dL Creatinine (0.7-1.2) mg/dL Estimated GFR ml/min BUN/Creatinine Ratio % Glucose (65-100) mg/dL Ketones Quantitative (Negative) Lactic Acid 3.30 H* (0.7-2.0) mmol/L Calcium (8.4-10.2) mg/dL Phosphorus (2.5-4.5) mg/dL Magnesium (1.7-2.3) mg/dL Total Bilirubin (0.1-1.2) mg/dL Direct Bilirubin (0-0.2) mg/dL Indirect Bilirubin mg/dL AST (5-40) units/L ALT (7-56) units/L Alkaline Phosphatase (35-129) units/L Troponin T < 0.010 (0.00-0.029) ng/mL Total Protein (6.3-8.2) g/dL Albumin (3.9-5) g/dL Albumin/Globulin Ratio % Urine Color (Yellow) Urine Turbidity (Clear) Urine pH (5.0-7.0) Ur Specific [place] (1.003-1.030) Urine Protein (Negative) mg/dL Urine Glucose (UA) (Negative) mg/dL Urine Ketones (Negative) mg/dL Urine Blood (Negative) Urine Nitrite (Negative) Urine Bilirubin (Negative) Urine Urobilinogen (<2.0) mg/dL Ur Leukocyte Esterase (Negative) Urine WBC (Auto) (0.0-6.0) /HPF Urine RBC (Auto) (0.0-6.0) /HPF U Epithel Cells (Auto) (0-13.0) /HPF Urine Bacteria (Auto) (Negative) /HPF 08/16/19 08/16/19 08/16/19 Range/Units 18:54 19:58 20:48 WBC (4.5-11.0) K/mm3 RBC (3.65-5.03) M/mm3 Hgb (10.1-14.3) gm/dl Hct (30.3-42.9) % MCV (79-97) fl MCH (28-32) pg MCHC (30-34) % RDW (13.2-15.2) % Plt Count (140-440) K/mm3 Lymph % (Auto) (13.4-35.0) % [place] % (Auto) (0.0-7.3) % Eos % (Auto) (0.0-4.3) % Baso % (Auto) (0.0-1.8) % Lymph # (1.2-5.4) K/mm3 [place] # (0.0-0.8) K/mm3 Eos # (0.0-0.4) K/mm3 Baso # (0.0-0.1) K/mm3 Seg Neutrophils % (40.0-70.0) % Seg Neutrophils # (1.8-7.7) K/mm3 PT (12.2-14.9) Sec. INR (0.87-1.13) APTT (24.2-36.6) Sec. VBG pH (7.320-7.420) Sodium 139 (137-145) mmol/L Potassium 4.7 (3.6-5.0) mmol/L Chloride 99.8 (98-107) mmol/L Carbon Dioxide 19 L (22-30) mmol/L Anion Gap 25 mmol/L BUN 16 (7-17) mg/dL Creatinine 1.2 (0.7-1.2) mg/dL Estimated GFR 58 ml/min BUN/Creatinine Ratio 13 % Glucose 1709 H* (65-100) mg/dL Ketones Quantitative Small (Negative) Lactic Acid 2.00 (0.7-2.0) mmol/L Calcium 10.1 (8.4-10.2) mg/dL Phosphorus 3.80 (2.5-4.5) mg/dL Magnesium 2.80 H (1.7-2.3) mg/dL Total Bilirubin (0.1-1.2) mg/dL Direct Bilirubin (0-0.2) mg/dL Indirect Bilirubin mg/dL AST (5-40) units/L ALT (7-56) units/L Alkaline Phosphatase (35-129) units/L Troponin T (0.00-0.029) ng/mL Total Protein (6.3-8.2) g/dL Albumin (3.9-5) g/dL Albumin/Globulin Ratio % Urine Color (Yellow) Urine Turbidity (Clear) Urine pH (5.0-7.0) Ur Specific [place] (1.003-1.030) Urine Protein (Negative) mg/dL Urine Glucose (UA) (Negative) mg/dL Urine Ketones (Negative) mg/dL Urine Blood (Negative) Urine Nitrite (Negative) Urine Bilirubin (Negative) Urine Urobilinogen (<2.0) mg/dL Ur Leukocyte Esterase (Negative) Urine WBC (Auto) (0.0-6.0) /HPF Urine RBC (Auto) (0.0-6.0) /HPF U Epithel Cells (Auto) (0-13.0) /HPF Urine Bacteria (Auto) (Negative) /HPF 08/16/19 08/16/19 08/16/19 Range/Units 20:48 21:22 21:47 WBC (4.5-11.0) K/mm3 RBC (3.65-5.03) M/mm3 Hgb (10.1-14.3) gm/dl Hct (30.3-42.9) % MCV (79-97) fl MCH (28-32) pg MCHC (30-34) % RDW (13.2-15.2) % Plt Count (140-440) K/mm3 Lymph % (Auto) (13.4-35.0) % [place] % (Auto) (0.0-7.3) % Eos % (Auto) (0.0-4.3) % Baso % (Auto) (0.0-1.8) % Lymph # (1.2-5.4) K/mm3 [place] # (0.0-0.8) K/mm3 Eos # (0.0-0.4) K/mm3 Baso # (0.0-0.1) K/mm3 Seg Neutrophils % (40.0-70.0) % Seg Neutrophils # (1.8-7.7) K/mm3 PT 12.2 (12.2-14.9) Sec. INR 0.92 (0.87-1.13) APTT 23.0 L (24.2-36.6) Sec. VBG pH (7.320-7.420) Sodium 141 (137-145) mmol/L Potassium 4.6 (3.6-5.0) mmol/L Chloride 104.2 (98-107) mmol/L Carbon Dioxide 15 L (22-30) mmol/L Anion Gap 26 mmol/L BUN 16 (7-17) mg/dL Creatinine 1.2 (0.7-1.2) mg/dL Estimated GFR 58 ml/min BUN/Creatinine Ratio 13 % Glucose 1557 H* (65-100) mg/dL Ketones Quantitative (Negative) Lactic Acid (0.7-2.0) mmol/L Calcium 10.5 H (8.4-10.2) mg/dL Phosphorus (2.5-4.5) mg/dL Magnesium (1.7-2.3) mg/dL Total Bilirubin (0.1-1.2) mg/dL Direct Bilirubin (0-0.2) mg/dL Indirect Bilirubin mg/dL AST (5-40) units/L ALT (7-56) units/L Alkaline Phosphatase (35-129) units/L Troponin T (0.00-0.029) ng/mL Total Protein (6.3-8.2) g/dL Albumin (3.9-5) g/dL Albumin/Globulin Ratio % Urine Color Colorless (Yellow) Urine Turbidity Clear (Clear) Urine pH 5.0 (5.0-7.0) Ur Specific [place] 1.028 (1.003-1.030) Urine Protein <15 mg/dl (Negative) mg/dL Urine Glucose (UA) >=500 (Negative) mg/dL Urine Ketones 20 (Negative) mg/dL Urine Blood Sm (Negative) Urine Nitrite Neg (Negative) Urine Bilirubin Neg (Negative) Urine Urobilinogen < 2.0 (<2.0) mg/dL Ur Leukocyte Esterase Neg (Negative) Urine WBC (Auto) < 1.0 (0.0-6.0) /HPF Urine RBC (Auto) 11.0 (0.0-6.0) /HPF U Epithel Cells (Auto) 4.0 (0-13.0) /HPF Urine Bacteria (Auto) 1+ (Negative) /HPF - EKG Data -: EKG Interpreted by Wy EKG shows normal: sinus rhythm, axis, intervals, QRS complexes, ST-T waves Rate: tachycardia (rate 119) Interpretation: no acute changes - Radiology Data Radiology results: report reviewed, image reviewed - Medical Decision Making 49 yo F presented to ED w/ AMS. Pt afebrile, tachycardic. EMS reported accucheck that read HIGH. Sepsis protocol initiated. Cefepime was given, blood cultures drawn. WBCs normal, but lactic acid elevated. BMP resulted w/ glucose of 1800, elevated anion gap, and bicarb of 15. Potassium normal. IV fluids and insulin drip initiated. CXR negative for any acute findings. Pt was given ativan 1 mg b/c of her tremors in order to obtain CT Head. CT showed acute SAH. denies trauma. No obvious trauma on exam. Pt states yes, when asked if she has a headache. Keppra ordered for seizure prophylaxis. Pt alert and oriented x 3 w/ slow response to questioning. No focal deficits observed. Spoke w/ neuro ICU attending at [facility] who agrees to accept transfer. - Differential Diagnosis hyperglycemia, DKA, infection, CVA Critical Care Time: Yes Critical care time in (mins) excluding proc time.: 35 Critical care attestation.: If time is entered above; I have spent that time in minutes in the direct care of this critically ill patient, excluding procedure time. Critical Care Time: 35 min ED Disposition Clinical Impression: DKA (diabetic ketoacidoses), Subarachnoid hemorrhage Disposition: DC/TX-70 ANOTHER TYPE HLTHCARE Is pt being admited?: No Condition: Stable Instructions: Diabetic Ketoacidosis (ED) Referrals: PRIMARY CARE, [Primary Care Provider] - 3-5 Days
[2019-08-16 19:42] LABS: Bilirubin,Direct < 0.2 mg/dL (0-0.2)
[2019-08-16] MEDS ORDERED: CEFEPIME/NS 2 GM/100 ML 2 GM/100 ML BAG IV ONE (19:44)
[2019-08-16] MEDS ORDERED: SODIUM CHLORIDE 0.9% 1000 ML IV SOLN IV ONE (19:44)
--- NOTE | 2019-08-16 19:57 | XRay Report ---
CHEST 1 VIEW INDICATION / CLINICAL INFORMATION: AMS. COMPARISON: 05/12/2017 FINDINGS: SUPPORT DEVICES: None. HEART / MEDIASTINUM: No significant abnormality. LUNGS / PLEURA: No significant pulmonary or pleural abnormality. No pneumothorax. ADDITIONAL FINDINGS: No significant additional findings. IMPRESSION: No acute pulmonary or pleural abnormality. No change from 05/12/2017 Signer Name: Oscar San MD FACR Signed: 08/16/2019 7:53 PM Workstation Name: [id number]
[2019-08-16] MEDS ORDERED: INSULIN REGULAR, HUMAN 100 UNITS in SODIUM CHLORIDE 0.9% 99 ML IV SCH (20:00)
[2019-08-16 20:24] LABS: Calcium 10.1 mg/dL (8.4-10.2)
--- NOTE | 2019-08-16 20:40 | Cat Scan Report ---
CT head/brain wo con INDICATION / CLINICAL INFORMATION: AMS. TECHNIQUE: All CT scans at this location are performed using CT dose reduction for ALARA by means of automated e xposure control. COMPARISON: 05/12/2017 FINDINGS: There is high density seen in the subarachnoid space of the right posterior parietal region consisten t with subarachnoid hemorrhage. Ventricle size is normal. No mass or mass effect is seen. The visuali zed paranasal sinuses are clear. IMPRESSION: Subarachnoid hemorrhage in the right posterior parietal region. This is a positive critical result di scovered at 1930 hours central time and personally communicated with Dr. Simth in the emergency room a t 1935 hours Central time Signer Name: Oscar San MD FACR Signed: 08/16/2019 8:36 PM Workstation Name: [id number]
[2019-08-16] MEDS ORDERED: levETIRAcetam 1000 MG/NS 0.75% 1,000 MG/100 ML BAG IV ONE (20:51)
[2019-08-16 21:16] LABS: Calcium 10.5 mg/dL (8.4-10.2)
[2019-08-16 21:44] LABS: INR 0.92 (0.87-1.13)
[2019-08-16 22:08] LABS: Bacteria,Urine 1+ /HPF (Negative); Bilirubin,Urine NEG (Negative); Blood,Urine SM (Negative); Color,Urine Colorless (Yellow); Protein,Urine <15 mg/dL mg/dL (Negative); Urobilinogen,Urine < 2.0 mg/dL (<2.0); WBC,Urine < 1.0 /HPF (0.0-6.0)
[2019-08-16 23:31] VITALS: BP 140/89
== END 2019-08-16 23:16 | disposition other institution (70) ==
LOC: ED 18:16
DX: I60.8 Other nontraumatic subarachnoid hemorrhage (principal); E13.10 Other specified diabetes mellitus with ketoacidosis without coma; I10 Essential (primary) hypertension; F32.89 Other specified depressive episodes; J45.909 Unspecified asthma, uncomplicated; Z90.49 Acquired absence of other specified parts of digestive tract; Z79.4 Long term (current) use of insulin; Z90.710 Acquired absence of both cervix and uterus; Z91.013 Allergy to seafood; Z88.2 Allergy status to sulfonamides
CPT/HCPCS: 36415; 70450; 71045; 80048; 80076; 81001; 82010; 82140; 82805; 83735; 84100; 84484; 85025; 85610; 85730; 87040; 93005; 96361; 96365; 96366; 96367; 96368; 96375; 99291; J0692; J1953; J2060; J7030; J1815